=== PATIENT | male | born 1940 | race Caucasian/White ===

== ENCOUNTER → 2017-11-06 08:03 | Outpatient (CLI) | payer MEDICARE, OTHER, SELFPAY ==
[2017-11-06 10:12] LABS: Absolute Lymphocyte Count 1.52 X10^3/ul (0.83-4.51); Absolute Neutrophil Count 3.3 X10^3/uL (2.0-7.7); Basophil# 0.02 X10^3/uL; Basophil% 0.4 % (0-1); Eosinophil# 0.16 X10^3/uL; Eosinophils% 2.9 % (0-5); Hematocrit 38.9 % (40-54); Hemoglobin 13.4 g/dl (13.0-16.5); Lymphocyte # 1.52 X10^3/ul (4.0); Lymphocyte % 27.7 % (19-41); Mean Corp Hgb Conc 34.4 g/gl (32-36); Mean Corpuscular Hgb 29.3 pg (27.0-32.0); Mean Corpuscular Volume 84.9 fL (80-94); Monocyte# 0.49 X10^3/uL; Monocyte% 8.9 % (0-10); Neutrophil % 60.1 % (47-70); Platelet Count 232 K/mm3 (150-450); RBC Distribution Width CV 12.4 % (11.6-14.6); Red Blood Count 4.58 M/mm3 (4.6-6.2); White Blood Count 5.5 K/mm3 (4.4-11.0)
[2017-11-06 10:13] LABS: POSITIVE COUNT NO; POSITIVE DIFFERENTIAL NO; POSITIVE MORPHOLOGY NO
[2017-11-06 10:29] LABS: Anion Gap 6 (5-15); BUN 18 mg/dL (7-18); BUN/Creat Ratio 14.6 RATIO (10-20); Calcium,Total 8.8 mg/dL (8.5-10.1); Chloride 108 mmol/L (98-107); Cholesterol 228 mg/dL (200); Creatinine, Serum 1.23 mg/dL (0.70-1.30); EST Glomerular Filtration Rate 61 mL/min (>60); Est Glom Filt Rate - Afr Amer 74 mL/min (>60); Glucose 125 mg/dL (74-106); High Density Lipoprotein 55 mg/dL; PSA,Total - Annual Screen 2.82 ng/mL (0.00-4.00); Sodium Level 138 mmol/L (136-145); Triglycerides 149 mg/dL; Very Low Density Lipoprotein 30 mg/dL (5-40)
== END ==
PROVIDERS: Family Provider Family Medicine; PCP Family Medicine; Visit Provider Family Medicine
DX: E78.00 Pure hypercholesterolemia, unspecified (principal); M19.90 Unspecified osteoarthritis, unspecified site; Z12.5 Encounter for screening for malignant neoplasm of prostate
CPT/HCPCS: 36415; 80048; 80061; 84153; 85025; G0103

== ENCOUNTER → 2020-05-22 14:39 | Outpatient (CLI) | payer MEDICARE, OTHER, SELFPAY ==
[2019-06-07 13:21] VITALS: BMI 21.2
[2020-05-22 17:52] LABS: Absolute Lymphocyte Count 1.99 X10^3/uL (0.83-4.51); Basophil# 0.03 X10^3/uL; Basophil% 0.4 % (0-1); Eosinophil# 0.14 X10^3/uL; Eosinophils% 2.1 % (0-5); Hematocrit 43.1 % (40-54); Hemoglobin 14.6 g/dL (13.0-16.5); Lymphocyte # 1.99 X10^3/ul (4.0); Lymphocyte % 29.7 % (19-41); Mean Corp Hgb Conc 33.9 g/dL (32-36); Mean Corpuscular Hgb 29.3 pg (27.0-32.0); Mean Corpuscular Volume 86.4 fL (80-94); Mean Platelet Vol. 10.4 fl (6.2-12.0); Monocyte# 0.54 X10^3/uL; NRBC Flagged by Analyzer 0 % (0-5); Neutrophil % 59.7 % (47-70); Platelet Count 328 K/mm3 (150-450); RBC Distribution Width CV 12.4 % (11.6-14.6); RBC Distribution Width SD 38.6 fl (35.1-43.9); Red Blood Count 4.99 M/mm3 (4.6-6.2); White Blood Count 6.7 K/mm3 (4.4-11.0)
[2020-05-22 18:10] LABS: ALB/GLOB Ratio 1.1 RATIO (0.9-2.4); AST(SGOT) 23 U/L (15-37); Alanine Aminotransfer ALT/SGPT 41 U/L (16-61); Alkaline Phosphatase 128 U/L (45-117); Anion Gap 7 (5-15); BUN 15 mg/dL (7-18); BUN/Creat Ratio 10.9 RATIO (10-20); Calcium,Total 9.5 mg/dL (8.5-10.1); Chloride 106 mmol/L (98-107); Creatinine, Serum 1.38 mg/dL (0.70-1.30); EST Glomerular Filtration Rate 53 mL/min (>60); Est Glom Filt Rate - Afr Amer 64 mL/min (>60); Globulin 3.7 g/dL (2.2-4.2); Glucose 101 mg/dL (74-106); Potassium 3.9 mmol/L (3.5-5.1); Protein, Total 7.7 g/dL (6.4-8.2); Sodium Level 139 mmol/L (136-145)
== END ==
PROVIDERS: PCP Family Medicine; Visit Provider Family Medicine
DX: I71.2 Thoracic aortic aneurysm, without rupture (principal)
CPT/HCPCS: 36415; 80053; 85025

== ENCOUNTER → 2020-05-29 15:38 | Outpatient (CLI) | payer MEDICARE, OTHER, SELFPAY ==
[2019-06-07 13:21] VITALS: BMI 21.2
--- NOTE | 2020-05-29 15:41 | CT_ITS ---
STUDY: CT CHEST WITH CONTRAST REASON FOR EXAM: Male, 79 years old. THORACIC ASCENDING AORTIC ANEURYSM, SKIN CANCER REMOVED FROM LT EAR RADIATION DOSAGE (If Supplied By Facility): CTDIvol = ( 6.21 ) mGy, DLP = ( 269.28 ) mGycm TECHNIQUE: Transaxial imaging was performed following intravenous administration of IV 100mL Isovue-300. Multiplanar coronal and sagittal images were reformatted. Individualized dose optimization techniques were used for this CT. COMPARISON: None. FINDINGS: The lungs are normal. There is no demonstrated pleural abnormality. Normal heart and pericardium. Normal mediastinum. Normal hilar regions. Normal enhanced pulmonary arteries. Aneurysmal dilatation of the proximal ascending thoracic aorta with a transverse dimension of 50.6 mm. Focal calcific plaque at the level of the aortic arch. There are mild multi-level degenerative changes of the thoracic spine. There is no demonstrated abnormality of the visualized upper abdomen. CT/Chest WITH Contrast IMPRESSION: Aneurysmal dilatation of the proximal descending thoracic aorta with a transverse dimension of 50.6 mm. Electronically Signed: Israel Ngo, at 8:25 EST , Service support ,
== END ==
PROVIDERS: PCP Family Medicine; Referring Provider Family Medicine; Visit Provider Family Medicine
DX: I71.2 Thoracic aortic aneurysm, without rupture (principal)
CPT/HCPCS: 71260; Q9967

== ENCOUNTER → 2020-06-28 13:35 | Outpatient (CLI) | payer MEDICARE, OTHER, SELFPAY ==
[2019-06-07 13:21] VITALS: BMI 21.2
--- NOTE | 2020-06-28 13:38 | CT_ITS ---
STUDY: CT ORBITS WITHOUT CONTRAST REASON FOR EXAM: Male, 79 years old. POST OP FLAP, SQUAMOUS CELL- RADIATION PLANNING. RADIATION DOSAGE (If Supplied By Facility): CTDIvol = ( 12.19 ) mGy, DLP = ( 219.42 ) mGycm TECHNIQUE: The patient was scanned in a multi detector CT scanner. Transaxial imaging was performed without the administration of intravenous contrast material. Sagittal and coronal images were reconstructed. Individualized dose optimization techniques were used for this CT. COMPARISON: None. FINDINGS: Normal globes. Normal intraconal spaces. Normal optic nerve sheath complex. Normal bilateral extraocular muscles. Normal lacrimal glands. Normal bilateral medial and inferior orbital johnson. Normal bilateral maxillary bones. Normal bilateral frontozygomatic arches. Normal bilateral zygomatic temporal arches. Normal frontal sinus. Normal ethmoidal sinuses. Normal maxillary sinuses. Normal sphenoid sinuses. Normal soft tissue structures. CT/Orb Sella Post Fossa Ear w/o IMPRESSION: Normal CT examination of the bilateral orbits. Electronically Signed: Luigi Bal MD at 16:09 EST Tel , Service support ,
== END ==
PROVIDERS: PCP Family Medicine; Referring Provider Radiology Radiation Oncology; Visit Provider Radiology Radiation Oncology
DX: C44.229 Squamous cell carcinoma of skin of left ear and external auricular canal (principal)
CPT/HCPCS: 70480

== ENCOUNTER → 2020-07-18 13:51 | Outpatient (CLI) | payer MEDICARE, OTHER, SELFPAY ==
[2019-06-07 13:21] VITALS: BMI 21.2
[2020-07-18 15:45] LABS: Absolute Lymphocyte Count 2.18 X10^3/uL (0.83-4.51); Absolute Neutrophil Count 2.8 X10^3/uL (2.0-7.7); Basophil# 0.04 X10^3/uL; Basophil% 0.7 % (0-1); Eosinophil# 0.22 X10^3/uL; Eosinophils% 3.8 % (0-5); Hematocrit 39.2 % (40-54); Hemoglobin 13.7 g/dL (13.0-16.5); Lymphocyte # 2.18 X10^3/ul (4.0); Lymphocyte % 37.4 % (19-41); Mean Corp Hgb Conc 34.9 g/dL (32-36); Mean Corpuscular Hgb 29.8 pg (27.0-32.0); Mean Corpuscular Volume 85.4 fL (80-94); Mean Platelet Vol. 10.1 fl (6.2-12.0); Monocyte# 0.57 X10^3/uL; Monocyte% 9.8 % (0-10); NRBC Flagged by Analyzer 0 % (0-5); Neutrophil # 2.81 X10^3/uL (2.7-7.7); Neutrophil % 48.1 % (47-70); Platelet Count 281 K/mm3 (150-450); RBC Distribution Width CV 11.9 % (11.6-14.6); RBC Distribution Width SD 37.1 fl (35.1-43.9); Red Blood Count 4.59 M/mm3 (4.6-6.2); White Blood Count 5.8 K/mm3 (4.4-11.0)
== END ==
PROVIDERS: PCP Family Medicine; Referring Provider Radiology Radiation Oncology; Visit Provider Radiology Radiation Oncology
DX: C80.1 Malignant (primary) neoplasm, unspecified (principal)
CPT/HCPCS: 36415; 85025

== ENCOUNTER → 2020-08-31 | Outpatient (CLI) | payer MEDICARE, OTHER, SELFPAY ==
--- NOTE | 2020-08-31 15:15 | LES_PTH ---
PATIENT: SYED ZEE LOC: [facility] U#:[id number] AGE/SX: 79/M ROOM: RE08/31/[address]: Dr. Misha Becker MD : 1940 BED: DIS: 08/31/2020 SPEC #: [id number] RECD: 08/31/20 16:09 STATUS: TAYLOR RE #: [id number] MARIN: 08/31/20 15:[address]: Misha Becker DEPT: SURGICAL PATHOLOGY RECD BY: Brooklyn Broussard ENTERED: 09/01/20 08:42 SP TYPE: Lesion OTHR DR: Kevin Mcadams MD Tissues: Skin of head, NOS Procedures: Special Stain Group I Surgery Specimen Level IV GMS Stain (control) HEADER OPERATION: Punch biopsy left anabaptist lesion PRE-OP DIAGNOSIS: Skin lesion of face TISSUE SUBMITTED: Left anabaptist tissue MICROSCOPIC DIAGNOSIS Left anabaptist lesion, punch biopsy: Moderate dermal chronic inflammation. Parakeratosis and solar elastosis. Negative for malignancy. See comment. ANGELA:yvonne 09/04/2020 COMMENT Clinical correlation and appropriate follow up are necessary. Special stain for fungi is negative for organisms; matched control is appropriate. Case has been reviewed in consultation with Dr. Wells who concurs with the above diagnosis. IDC:AM MICROSCOPIC DESCRIPTION Slides are reviewed. GROSS DESCRIPTION Received in fixative is one container labeled with the patient's name and designated left anabaptist punch biopsy. The specimen consists of a punch biopsy of campbell-white skin measuring 0.3 cm in diameter and 0.4 cm in length. The specimen is totally submitted in one cassette. / ANGELA:yvonne 09/01/20 TC:4 CPT: 20441, 48728
== END | disposition home or self-care (01) ==
LOC: LABSPEC 16:30
PROVIDERS: PCP Family Medicine; Referring Provider Surgery; Visit Provider Surgery
DX: L98.9 Disorder of the skin and subcutaneous tissue, unspecified (principal)
CPT/HCPCS: 88305; 88312

== ENCOUNTER 2022-05-10 07:10 | Day surgery (SDC) | payer MEDICARE, OTHER, SELFPAY ==
--- NOTE | 2022-05-10 | COLBX_PTH ---
PATIENT: SYED ZEE LOC: [facility] U#:[id number] AGE/SX: 81/M ROOM: RE05/10/[address]: Dr. Misha Becker MD : 1940 BED: DIS: 05/10/2022 SPEC #: [id number] RECD: 05/10/22 11:52 STATUS: TAYLOR ALLEN #: [id number] MARIN: 05/10/22 00:[address]: Misha Becker DEPT: SURGICAL PATHOLOGY RECD BY: Kalia Ferraro ENTERED: 05/10/22 11:52 SP TYPE: COLON BX OTHR DR: Kevin Mcadams MD Tissues: Sigmoid colon biopsy Procedures: Surgery Specimen Level IV HEADER OPERATION: Colonoscopy with polypectomy (MAC) PRE-OP DIAGNOSIS: History of colonic polyps TISSUE SUBMITTED: Mid sigmoid polyp biopsy MICROSCOPIC DIAGNOSIS Mid sigmoid polyp, biopsy: Hyperplastic polyp. /SJ 05/13/22 MICROSCOPIC DESCRIPTION Slides are reviewed. GROSS DESCRIPTION Received in fixative is one container labeled with the patient's name and designated mid sigmoid polyp biopsy. The specimen consists of one irregular fragment of light campbell soft tissue that measures 0.3 x 0.3 x 0.1 cm. The specimen is totally submitted in one cassette. / SJ:yvonne 05/10/2022 TC:1 CPT: 37630
[2022-05-10 07:30] VITALS: BP 138/85; PULSE 71; RESP 16; TEMP 36.7; O2SAT 97; BMI 20.5
[2022-05-10] MEDS: Lactated Ringers 1,000 ML 15 ML IV (07:38)
--- NOTE | 2022-05-10 08:54 | HP.PCM_ITS ---
[facility] - General General Date of Service: 05/10/22 Chief Complaint: Personal history of colon polyps [facility] Narrative SYED ZEE, is a 81 M who presents who presents for a colonoscopy. He has a personal history of colon polyps. Previous colonoscopy was April 29, 2017 and he had a polyp of the cecum at that time. He presents with no complaints currently. No abdominal pain no bright red blood per rectum. He does have a ascending thoracic aortic aneurysm but by his report that has been monitored and is stable. [facility] Medical History (Updated 05/10/22 @ 08:[address] Misha Becker MD) Ascending aortic aneurysm Cardiology follow-up encounter Former smoker History of echocardiogram History of skin cancer Osteoarthritis Skin lesion of face Squamous cell carcinoma Wears glasses Home Medications aspirin 325 mg tablet 325 mg PO DAILY@0800 04/29/17 [History Last Taken Unknown] multivitamin 1 ea PO DAILY 04/29/17 [History Last Taken Unknown] cholecalciferol (vitamin D3) 125 mcg (5,000 unit) capsule 5,000 unit PO DAILY 05/03/19 [History Last Taken Unknown] coenzyme Q10 300 mg capsule 300 mg PO DAILY 05/03/19 [History Last Taken Unknown] omega 2-yrn-wrh-fish oil 900 mg-1,400 mg capsule,delayed release (Fish Oil) 1 cap PO DAILY 12/06/21 [History Last Taken Unknown] vitamin K2 180 mcg capsule 180 mcg PO DAILY 05/08/22 [History Last Taken Unknown] zinc 1 tab PO DAILY 05/08/22 [History Last Taken Unknown] Allergy/AdvReac Type Severity Reaction Status Date / Time No Known Allergies Allergy Verified 05/10/22 07:29 Family History Father No problems noted. Surgical History History of colonoscopy History of surgery on wrist History of surgical removal of skin lesion History of tonsillectomy and adenoidectomy Status post Mohs surgery for squamous cell carcinoma in situ of skin Social History Smoking Status: Former smoker ROS Constitutional Constitutional: Reports systems reviewed and no addt'l complaints, except as documented Cardiovascular Cardiovascular: Denies chest pain Respiratory/Chest Respiratory/Chest: Denies shortness of breath at rest Gastrointestinal Gastrointestinal: Denies abdominal pain, change in bowel habits, hematochezia or melena Vital Signs Vital Signs Vital Signs: 05/10/22 07:30 05/10/22 07:30 Temperature 98.0 F Temperature Source Temporal Pulse Rate 71 Respiratory Rate 16 Respiratory Pattern Normal Blood Pressure 138/85 H Blood Pressure Mean 102 Blood Pressure Source Monitor Blood Pressure Position Semi-Fowlers Blood Pressure Location Left Arm Pulse Ox 97 Oxygen Delivery Method Room Air Weight Weight: 134 lb 12.8 oz Body Mass Index (BMI) 20.5 Physical Exam Const alert, oriented x3 and no apparent distress General Appearance: cooperative and comfortable Eyes General Eye: normal appearance of both eyes Neck General: normal visual inspection Chest inspection of chest normal Resp Effort and Inspection: able to speak in complete sentences and symmetric chest movement Auscultation: clear to auscultation bilaterally Cardio regular rate and regular rhythm GI soft to palpation, non-tender and non-distended Extremity no calf tenderness Neuro oriented x3 Psych thought process normal Assessment & Plan Assessment/Plan (1) Personal history of colonic polyps: PLAN: I recommended the patient a surveillance colonoscopy with possible biopsy or polypectomy as indicated. He is aware of the technique, benefit, risk, alternatives. He has had an opportunity to ask and have questions answered. He presents via open access today. We will proceed as noted. Misha Becker M.D., F.A.C.S.
--- NOTE | 2022-05-10 09:21 | OP.COLON_ITS ---
Patient Name: Jose A Painting Procedure Date: 05/10/2022 8:48 AM Date of : 1940 Age: 81 Procedure: Colonoscopy Indications: High risk colon cancer surveillance: Personal history of colonic polyps Providers: Misha Becker MD Medicines: See the Anesthesia note for documentation of the administered medications Patient Profile: Last Colonoscopy: March 2017. Complications: No immediate complications. Procedure: Pre-Anesthesia Assessment: - Prior to the procedure, a History and Physical was performed, and patient medications and allergies were reviewed. The patient's tolerance of previous anesthesia was also reviewed. The risks and benefits of the procedure and the sedation options and risks were discussed with the patient. All questions were answered, and informed consent was obtained. Prior Anticoagulants: The patient has taken no previous anticoagulant or antiplatelet agents. ASA Grade Assessment: II - A patient with mild systemic disease. After reviewing the risks and benefits, the patient was deemed in satisfactory condition to undergo the procedure. After I obtained informed consent, the scope was passed under direct vision. Throughout the procedure, the patient's blood pressure, pulse, and oxygen saturations were monitored continuously. The colonoscope was introduced through the anus and advanced to the cecum, identified by appendiceal orifice and ileocecal valve. The colonoscopy was performed without difficulty. The patient tolerated the procedure well. The quality of the bowel preparation was good. The ileocecal valve and the appendiceal orifice were photographed. Scope In: 9:00:31 AM Scope Withdrawal Time 0 hours 10 minutes 7 seconds Scope Out: 9:16:18 AM Total Procedure Duration Time 0 hours 15 minutes 47 seconds Findings: Hemorrhoids were found on perianal exam. Multiple diverticula were found in the entire colon. A 3 mm polyp was found in the mid sigmoid colon. The polyp was sessile. The polyp was removed with a cold biopsy forceps. Resection and retrieval were complete. Impression: - Hemorrhoids found on perianal exam. - Diverticulosis in the entire examined colon. - One 3 mm polyp in the mid sigmoid colon, removed with a cold biopsy forceps. Resected and retrieved. This flat lesion very benign appearing. Will await pathology but likely follow-up colonoscopy will not be required for 10 years. Recommendation: - Telephone my office for pathology results in 1 week. - Repeat colonoscopy after studies are complete for surveillance based on pathology results. - Continue present medications. Procedure Code(s): --- Professional --- 86639, Colonoscopy, flexible; with biopsy, single or multiple Diagnosis Code(s): --- Professional --- Z86.010, Personal history of colonic polyps K64.9, Unspecified hemorrhoids D12.5, Benign neoplasm of sigmoid colon K57.30, Diverticulosis of large intestine without perforation or abscess without bleeding CPT copyright 2017 [employer]. All rights reserved. The codes documented in this report are preliminary and upon third helper review may be revised to meet current compliance requirements. Misha Becker MD 05/10/2022 9:21:09 AM This report has been signed electronically. Number of Addenda: 0 Note Initiated On: 05/10/2022 8:48 AM
--- NOTE | 2022-05-10 09:21 | OP.CCLET_ITS ---
05/10/2022 Kevin Mcadams Md Re : Colonoscopy procedure for Jose A Coatsab Mcadams This procedure was performed on Tuesday, May 10, 2022. My impressions and recommendations are as follows: Impressions : - Hemorrhoids found on perianal exam. - Diverticulosis in the entire examined colon. - One 3 mm polyp in the mid sigmoid colon, removed with a cold biopsy forceps. Resected and retrieved. This flat lesion very benign appearing. Will await pathology but likely follow-up colonoscopy will not be required for 10 years. Recommendations : - Telephone my office for pathology results in 1 week. - Repeat colonoscopy after studies are complete for surveillance based on pathology results. - Continue present medications. My findings are described in the full procedure note, which is enclosed. If I can be of further assistance, please feel free to contact me at Doctor phone number(s): Work: . Sincerely, Misha Becker MD 05/10/2022 9:21:09 AM This report has been signed electronically.
[2022-05-10 09:22] VITALS: BP 138/85; BP 98/68; PULSE 70; RESP 16; TEMP 36.6; O2SAT 96
[2022-05-10 09:25] VITALS: BP 105/70; BP 138/85; PULSE 60; RESP 16; O2SAT 94
[2022-05-10 09:30] VITALS: BP 109/65; BP 138/85; PULSE 58; RESP 16; O2SAT 94
[2022-05-10 09:35] VITALS: BP 119/82; BP 138/85; PULSE 72; RESP 16; TEMP 36.6; O2SAT 98
[2022-05-10 09:47] VITALS: BP 138/85
== END 2022-05-10 10:18 | disposition home or self-care (01) ==
LOC: EN 07:10 → AC 07:12
PROVIDERS: PCP Family Medicine; Referring Provider Family Medicine; Visit Provider Surgery
PROC: 0DJD8ZZ Inspection of Lower Intestinal Tract, Via Natural or Artificial Opening Endoscopic (ICD-10-PCS; CPT 45378; principal; 2022-05-10 08:25)
DX: K63.5 Polyp of colon (principal); K57.30 Diverticulosis of large intestine without perforation or abscess without bleeding; Z86.010 Personal history of colon polyps; K64.9 Unspecified hemorrhoids; I71.21 Aneurysm of the ascending aorta, without rupture; M19.90 Unspecified osteoarthritis, unspecified site; Z79.899 Other long term (current) drug therapy; Z79.82 Long term (current) use of aspirin; Z87.891 Personal history of nicotine dependence; Z85.828 Personal history of other malignant neoplasm of skin
CPT/HCPCS: 45380; 88305; J7120; J2405

== ENCOUNTER → 2023-04-22 | Outpatient (CLI) | payer MEDICARE, OTHER, SELFPAY ==
[2023-04-22 15:09] LABS: Absolute Lymphocyte Count 2.19 X10^3/uL (0.83-4.51); Absolute Neutrophil Count 3.6 X10^3/uL (2.0-7.7); Basophil# 0.05 X10^3/uL; Basophil% 0.7 % (0-1); Eosinophil# 0.24 X10^3/uL; Eosinophils% 3.6 % (0-5); Hematocrit 40.6 % (40-54); Hemoglobin 13.9 g/dL (13.0-16.5); Lymphocyte # 2.19 X10^3/ul (0.83-4.51); Lymphocyte % 32.4 % (19-41); Mean Corp Hgb Conc 34.2 g/dL (32-36); Mean Corpuscular Hgb 29.8 pg (27.0-32.0); Mean Corpuscular Volume 87.1 fL (80-94); Monocyte# 0.61 X10^3/uL; NRBC Flagged by Analyzer 0 % (0-5); Neutrophil # 3.64 X10^3/uL (2.7-7.7); Platelet Count 250 K/mm3 (150-450); RBC Distribution Width CV 12.3 % (11.6-14.6); Red Blood Count 4.66 M/mm3 (4.6-6.2); White Blood Count 6.8 K/mm3 (4.4-11.0)
[2023-04-22 16:14] LABS: ALB/GLOB Ratio 0.9 RATIO (0.9-2.4); AST(SGOT) 21 U/L (15-37); Alanine Aminotransfer ALT/SGPT 33 U/L (16-61); Albumin, Serum 3.4 g/dL (3.2-5.0); Alkaline Phosphatase 99 U/L (45-117); Anion Gap 3 (5-15); BUN 22 mg/dL (7-18); BUN/Creat Ratio 19.6 RATIO (10-20); Chloride 109 mmol/L (98-107); Cholesterol 256 mg/dL (200); Creatinine, Serum 1.12 mg/dL (0.70-1.30); EST Glomerular Filtration Rate 67 mL/min (>60); Est Glom Filt Rate - Afr Amer 81 mL/min (>60); Globulin 3.6 g/dL (2.2-4.2); Glucose 118 mg/dL (74-106); High Density Lipoprotein 54 mg/dL; PSA,Total - Annual Screen 3.14 ng/mL (0.00-4.00); Potassium 4.1 mmol/L (3.5-5.1); Sodium Level 140 mmol/L (136-145); Triglycerides 338 mg/dL; Very Low Density Lipoprotein 68 mg/dL (5-40)
== END | disposition home or self-care (01) ==
PROVIDERS: PCP Family Medicine; Referring Provider Family Medicine; Visit Provider Family Medicine
DX: E78.00 Pure hypercholesterolemia, unspecified (principal); Z12.5 Encounter for screening for malignant neoplasm of prostate; M19.90 Unspecified osteoarthritis, unspecified site
CPT/HCPCS: 36415; 80053; 80061; 84153; 85025; G0103

== ENCOUNTER → 2024-03-26 | Outpatient (CLI) | payer MEDICARE, OTHER, SELFPAY ==
[2024-03-26 12:46] LABS: Absolute Lymphocyte Count 1.22 X10^3/uL (0.83-4.51); Absolute Neutrophil Count 9.6 X10^3/uL (2.0-7.7); Basophil# 0.13 X10^3/uL; Eosinophil# 0.58 X10^3/uL; Eosinophils% 4.6 % (0-5); Hematocrit 33.9 % (40-54); Hemoglobin 10.7 g/dL (13.0-16.5); Lymphocyte # 1.22 X10^3/ul (0.83-4.51); Lymphocyte % 9.7 % (19-41); Mean Corp Hgb Conc 31.6 g/dL (32-36); Mean Corpuscular Volume 91.9 fL (80-94); Mean Platelet Vol. 10.8 fl (6.2-12.0); Monocyte% 7.2 % (0-10); NRBC Flagged by Analyzer 0 % (0-5); Neutrophil # 9.63 X10^3/uL (2.7-7.7); Neutrophil % 76.9 % (47-70); Platelet Count 433 K/mm3 (150-450); RBC Distribution Width CV 12.7 % (11.6-14.6); RBC Distribution Width SD 41.6 fl (35.1-43.9); Red Blood Count 3.69 M/mm3 (4.6-6.2); White Blood Count 12.5 K/mm3 (4.4-11.0)
[2024-03-26 13:13] LABS: ALB/GLOB Ratio 0.6 RATIO (0.9-2.4); AST(SGOT) 49 U/L (15-37); Alanine Aminotransfer ALT/SGPT 63 U/L (16-61); Albumin, Serum 2.8 g/dL (3.2-5.0); Alkaline Phosphatase 391 U/L (45-117); Anion Gap 7 (5-15); BUN 13 mg/dL (7-18); BUN/Creat Ratio 10.1 RATIO (10-20); Calcium,Total 9.3 mg/dL (8.5-10.1); Chloride 107 mmol/L (98-107); Creatinine, Serum 1.29 mg/dL (0.70-1.30); EST Glomerular Filtration Rate 57 mL/min (>60); Est Glom Filt Rate - Afr Amer 69 mL/min (>60); Globulin 4.9 g/dL (2.2-4.2); Glucose 156 mg/dL (74-106); Magnesium 2.4 mg/dL (1.6-2.6); Potassium 3.8 mmol/L (3.5-5.1); Protein, Total 7.7 g/dL (6.4-8.2); Sodium Level 139 mmol/L (136-145)
== END | disposition home or self-care (01) ==
LOC: MFPLAB 10:12
PROVIDERS: PCP Family Medicine; Visit Provider Family Medicine
DX: I25.10 Atherosclerotic heart disease of native coronary artery without angina pectoris (principal)
CPT/HCPCS: 36415; 80053; 83735; 85025

== ENCOUNTER → 2024-04-12 | Outpatient (CLI) | payer MEDICARE, SELFPAY ==
[2024-04-12 12:15] LABS: Red Blood Cells-Urine 0 SEEN /hpf (0-5)
[2024-04-12 15:28] LABS: Color, Urine Yellow (Yellow); Glucose, Dipstick Normal (Normal); Ketone-Dipstick Negative (Negative); Leukocyte Esterase-Dipstick Negative /ul (Negative); Nitrite-Dipstick Negative (Negative); Occult Blood-Urine Negative /ul (Negative); Protein-Dipstick Negative (Negative); Urine Bilirubin Dipstick Negative (Negative); Urine Clarity Clear (Clear); Urine Urobilinogen Normal (Normal)
[2024-04-12 15:43] LABS: Bacteria 1+ /hpf (None Seen); Calcium Oxalate Crystals Ur 1+ /hpf (<or=2+); Mucous, Urine 2+ /hpf (<or=2+); Squamous Epithelial Cells - UA 0-5 SEEN /hpf (0-5); White Blood Cells 0-5 SEEN /hpf (0-5)
== END | disposition home or self-care (01) ==
LOC: MFPLAB 12:14
PROVIDERS: PCP Family Medicine; Visit Provider Family Medicine
DX: N39.43 Post-void dribbling (principal)
CPT/HCPCS: 81001; 87086

== ENCOUNTER → 2024-04-26 | Outpatient (CLI) | payer MEDICARE, OTHER, SELFPAY ==
--- NOTE | 2024-04-26 08:04 | PCM.CR.HP2 ---
CR - History & Physical General Arrival date:: 04/26/24 Arrival time:: 08:05 Date of Referral:: 04/22/24 Date of CR Evaluation:: 04/26/24 Referring Physician: Dr. 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) Medications Ambulatory Orders ?Medication ?Instructions ?Recorded aspirin 325 mg tablet 325 mg PO DAILY@0800 04/29/17 multivitamin 1 ea PO DAILY 04/29/17 cholecalciferol (vitamin D3) 125 5,000 unit PO DAILY 05/03/19 mcg (5,000 unit) capsule coenzyme Q10 300 mg capsule 300 mg PO DAILY 05/03/19 omega 6-fpd-fny-fish oil 900 1 cap PO DAILY 12/06/21 mg-1,400 mg capsule,delayed release (Fish Oil) vitamin K2 180 mcg capsule 180 mcg PO DAILY 05/08/22 zinc 1 tab PO DAILY 05/08/22 Allergies Allergies No Known Allergies Allergy (Verified 05/10/22 07:29) Sleep Disorder Evaluation Hx of Sleep Apnea: No Do you snore loudly (louder than talking or can be heard through closed doors)?: No Do you often feel tired/ fatigued/ sleepy during daytime?: No Has anyone observed you stop breathing during sleep?: No History of Hypertension (for STOP score): No STOP Results: Negative Advanced Directives Advanced Directives Power of Central Supply Technician Supervisor: No Living Will: No Advance Directives Information Provided: No Advance Directives on File: No DNR Order?:: No Past Medical History Covid-19 Screening Physicial Symptoms Other Clinical Concerns Exposure Risk Pertinent Comorbidities 65 years or older:: Yes Has a serious heart condition:: Yes Past Medical Illness Past Medical History (Updated 05/10/22 @ 08:[address] Misha Becker MD) Ascending aortic aneurysm I71.21 Wears glasses Z97.3 Former smoker Z87.891 History of echocardiogram Z92.89 Cardiology follow-up encounter Z09 F/U YEARLY [facility], DR. PEREZ, LAST F/U 12/2021 Squamous cell carcinoma left ear Skin lesion of face L98.9 History of skin cancer Z85.828 Osteoarthritis M19.90 Past Surgical History Past Surgical History History of tonsillectomy and adenoidectomy Z90.89 Status post Mohs surgery for squamous cell carcinoma in situ of skin Z98.890 left ear History of surgical removal of skin lesion Z98.890, Z87.2 History of surgery on wrist Z98.890 History of colonoscopy Z98.890 Family History Summary Family History Father No problems noted. Social History Smoking History Smoking Status: Former smoker Years Smokin Packs Smoked per Day: 0.5 (stopped in 1979) Alcohol Use Alcohol Usage: Yes (socially) Occupation Occupation (List type of work in comments):: Retired Hobbies, Recreation, Social Activities Hobbies: Other (music) Recreational Activities: I am able to engage in all my recreational activities Social Environment Status Marital Status: Current Living Arrangements Living Environment:: Spouse Children How many children do you have?: 2 Do any of your children live nearby?: No Safety Do you feel safe in your surroundings?: Yes Assistance Do you need any assistance at home?: no Review of Systems Review of Systems Hints Review of Present Symptoms: Reports Shortness of Breath with Exertion and Appetite - Special Diet; Denies Shortness of Breath at Rest, PVD, Operative Discomfort, Angina, Wound Healing, Dizziness/Lightheadedness, Fatigue, Heart Arrhythmia/Irregularities, Appetite - Normal, Sleep - Normal or Sexual Changes Pain Is Patient Pain Free?: No Risk Factor Assessment Chief Complaint Chief Complaint: CABG Vital Signs Pulse Ox: 96 Blood Pressure: 106/62 Pulse Pulse Rate: 87 Pulse Rhythm: Regular Hypertension Blood Pressure Sitting - Right Arm: 106/62 Stress Stress: Recent (health) Diabetes Diabetic History: Medication Dependent (Pt is taking metformin since his surgery. Is planning to talk to his physician to see if this is still necessary.) Nutrition Referral for Diabetes: No Obesity Height: 5 ft 8 in Weight:: 130 lb Weight in Pounds: 130.0 lbs Body Mass Index (BMI): 19.8 Nutritional Referral for Obesity: No Physical Inactivity Physical Inactivity: Reg Exercise 30 min/day (walking) Risk Stratification Risk Guidelines: Lowest Risk: Risk Factor for Smoking and Risk Factor for Obesity, Moderate Risk: Risk Factor for Dyslipidemia, Risk Factor for Diabetes, Risk Factor for Hypertension and Risk Factor for Sedentary Lifestyle and Highest Risk: Risk Factor for Depression For Smoking Smoking Risk Guidelines For Dyslipidemia Dyslipidemia Risk Guidelines For Diabetes Mellitus Diabetes Risk Guidelines For Obesity/Overweight Obesity/Overweight Risk Guidelines For Hypertension Hypertension Risk Guidelines For Sedentary Lifestyle Sedentary Lifestyle Risk Guidelines For Depression Depression Risk Guidelines Family History Family History Father No problems noted. Motivation Motivation to Participate On a scale of 1 to 10, how prepared are you to commit to attending program?: 10 What do you see as barriers to successfully being able to complete the program?: nothing What do you see as the benefits of succesfully completing the program? In other words, what do you hope to get out of participating in the program?: stronger, more energy, improve appetite, feel better Are there issues you are dealing with that will interfere with completing the program?: no Do you have a spouse or signficant other, family or friends who will help support you to complete the program?: yes
--- NOTE | 2024-04-26 08:09 | CR.ITP_ITS ---
Diagnosis General Information Admitting Diagnosis: CABG Personal Learning Style:: Audio/Visual Barriers to Learning: No Barriers Stage of change r/t lifestyle modifications:: Contemplation Gave educational material for:: Treating Heart Disease, How The Heart Works, What it means to have Heart Disease, How Coronary Artery Disease is Diagnosed, Heart Procedures, What Heart Medications Do, Risk Factors & Modifications, Living an Active Life, Nutrition, Emotions & Heart Disease, Stress Management & Relaxation and Sleep Disorders & Heart Disease Education/Goals Cardiac Rehabilitation Goals Personal Goals: Initial Assessment: Improve energy level, Improve muscle strength and endurance, Improve diet and eating habits (eat healthier) and Control risk factors (learn risk factor modification) Scale for measuring improvement of personal goals Diagnosis & Disease Process Outcomes/Goals: Pt IDs own risk factors & lifestyle modifications by Session 10, Verbalizes symptoms of angina & response by session 3., Pt independently manages and Other Additional Outcomes/Goals: Plan/Interventions: Assist Pt to ID & engage in lifestyle modification to reduce CVD risk, Instruct on individual risk factors, Review symptoms of angina & emergency actions, Review secondary diagnosis & identify educational needs. and Other see comment 30 day Reassessments:: Not Met 30 day Reassessments:: Not Met 30 day Reassessments:: Not Met 30 day Reassessments:: Not Met Final Reassessments:: Not Met Safety Referral to Physical Therapy: No Referral to [facility] Case Management: No Fall Risk Assessed:: Yes Assistive Devices:: None Exercise - Initial Assessment Visit Date of Eval: 04/26/24 (initial eval) Mets: Pre-: >3 METS for 30 minutes by discharge, >5 METS for 30 minutes by discharge, >7 METS for 30 minutes by discharge and Unable to meet goal due to: (see comment below) Physician Prescribed Exercise Modalities: Treadmill, Schwinn Airdyne AD-7, SciFit Stepper, [employer]Fit Pro-II Ergometer and [employer]Fit Lateral Lisman Frequency: 3x/week for 12 weeks [36 sessions] Intensity: 60-80% of age predicted maximum heart rate reserve Duration: 30 - 45 minutes Current METSs:: 3 Target Heart Rate:: 83-104 Resting Blood Pressure: 106/62 EKG Type: atrial-sensed ventricular-paced rhythm Outcomes & Goals Goals:: Verbalizes understanding of THR, RPE & goal METS by session 6, Documents in home exercise log/reports 30 min aerobic 5 day/wk by DC, Demonstrates accurate pulse taking by DC and Other additional outcome/goals: see below Intervention & Plan Exercise Program Goals: Instruct on personal THR & RPE, Instruct on MET level & personal MET goal, Show patient to take own pulse /validate performance until accurate, Instruct on home exercise and Other additional plan/int Physical Activity Home Exercise Physical Activity - Home Exercise: Safe Exercise, Warm-up, Self-monitoring, Cool-Down, Home Exercise > 30 min Daily and Sitting Time <3 hours/daily Outcomes & Goals Outcomes/Goals: Demonstrates correct Warm-up/exercise Cool-Down (S3) if = 2.5 METs, Verbalizes symptoms of exercise intolerance by Session 3 (S3), Demonstrate safe equipment use (S3) & follows exercise prescrition (6) and Other: See below Intervention & Plan Plan/Intervention: Instruct warm-up & cool-down if exercising at > 2 METs, Instruct on symptoms of exercise intolerance & actions to take, Instruct & monitor on saf, Assess intial functional capacity & safety risk and Other See below Nutrition - Initial Assessment Visit Date of Eval: 04/26/24 (initial eval) Cholesterol/Lipids (Other Core Measures) Determine presence & major risk factors that modify LDL goal: Hypertension or hypertensive medication, Low HDL cholesterol <40 mg/dL*, Family history of premature CHD in Male < 55 years: female <65 yearsFa and Age men > 45 years; women >/= 55 years Outcomes/Goals: Pt IDs own risk factors & lifestyle modifications by Session 10, Verbalizes symptoms of angina & response by session 3., Pt independently manages and Other Additional Outcomes/Goals: Intervention/Plan: Advocate for lipid panel cholesterol medication if applicable, Instruct on personal lipid levels & lipid goals/NCEP guidelines, Instruct on cholesterol and Other additional plan/int Diabetes (Other Core Measures) Diabetes Type: Not Applicable (Pt has been taking metformin since his surgery. Is going to talk to his physician to see if he can discontinue.) Weight Mgt (Other Care) Height: 5 ft 8 in Weight:: 130 lb BMI: 19.8 Diagnosis Overweight/Obesity BMI> 30% ICD-10 E66: No Diagnosis High BMI/Morbid Obesity BMI> 35% ICD-10 Z68: No Outcomes/Goals: Pt sets, maintains & shows weight loss goal & trend during rehab and Other additional outcomes/goals Intervention/Plan: Instruct on ideal BMI & set weight loss goal w/patient, Assist pt to ID & incorporate diet changes for weight loss by S9, Refer to Structured Weight Loss program as appropriate, Encourage goal of using 250- 300dcal per session for weight loss and Other additional plan/interventions Healthy Eating Habits Will attend diet classes:: Yes Outcomes/Goals:: Consume diet rich in vegs,fruits,whole grain/high fiber,fish,lean meat, Limit sat/trans fats,cholesterol & added salts & sugars and Other additional outcome/goals: Intervention/Plan:: Assess current eating habits and Other Additional plan/interventions Education Gave educational materials for:: Signs & symptoms of hypoglycemia, Signs & symptoms of hyperglycemia, Relate diabetes to coronary artery disease and Healthy eating Core - Initial Assessment Visit Date of Eval: 04/26/24 (initial eval ) Medication Compliance Preventative Medication(s):: Aspirin and Statin/lipid H/O mental health issues: depression, anxiety, or addiction?: No Doesn?t believe in the benefits of treatment?: No Believes medications are unnecessary or harmful?: No Has a concern about medication side effects?: No Expresses concern over the cost of medications?: No Outcomes/Goals: Verbalizes medications,desired effect & common side effects @ DC, Pt self-reports following medication regimen, Keeps card in wallet w/medications listed by DC and Other additional outcome/goals: Interventions/plans: Instruct on medication effects & side effects, Review medication list w/patient every two weeks, Instruct importance of taking meds as ordered & assist problem solving and Other additional Tobacco Use Tobacco Use: Non-smoker Do you use smokeless tobacco?: No Hypertension Resting Blood Pressure:: 106/62 [place] [employer] Hypertension Guidelines Outcomes/Goals: Able to verbalize/achieve optimal blood pressure <130/80, Incorporates diet changes & exercise for blood pressure control by DC and Other additional outcomes/goals Interventions/plan: Instruct on optimal blood pressure, hypertension & medications, Instruct on effects of sodium, alcohol, stress, exercise &hypertension and Other additional plan/interventions Tobacco Cessation Referral Smoking Cessation Referral:: No Individual Education/Counseling:: No Education Schedule Given:: Yes Psychosocial - Initial Assess VIsit Date of Eval: 04/26/24 (initial eval ) History of previous Mental disease:: Yes History of Emotional Disorders: Depression (pt is experiencing some mild depression since his surgery. Pt feels that starting a structured exercise program will be helpful.) Self-reported stressors: Recent Illness Target Goals Target Goals Psychosocial Test Tool Used:: Reta Lovell QOL Cardiac and PHQ-9 Questionnaire phq-9 Severity Referral to Behavioral Health PS - Interventions: Yes: Attend Stress Management Classes Outcomes/Goals: See list Psychosocial Outcomes/Goals:: ID's personal stressors & 2 strategies to manage stress by discharge and Other Additional outcome/goals: Intervention/Plan: See List Interventions/Plan:: Assess stressors,coping strategies & signs of derpression on admission, Instruct/assist pt to develop coping & personal stress Mgt strategies, Refer to Behavioral Health if appropriate, Refer to Physician if appropriate, Instruct patient to recognize signs & symptoms of depression, Instruct patient to recog and Other additional plan/intervention Patient Health Questionnaire PHQ-9 Screening Initial Assessment: 1. Little interest or pleasure in doing things: Several days 2. Feeling down, depressed, or hopeless: Several days 3. Trouble falling or staying asleep, or sleeping too much: Several days 4. Feeling tired or having little energy: Several days 5. Poor appetite or overeating: Several days 6. Feeling bad about yourself -- or that you are a failure or have let yourself or your family down: Not at all 7. Trouble concentrating on things, such as reading the newspaper or watching television: Not at all 8. Moving or speaking so slowly that other people could have noticed. Or the opposite - being so fidgety or restless that you have been moving around a lot more than usual: Not at all 9. Thoughts that you would be better off , or of hurting yourself in some way: Not at all How difficult have these problems made it for you to do your work, take care of things at home, or get along with other people?: Somewhat difficult Total Score: 5 ANISHA-Q SV Test Statements CAD is a disease of the arteries in the heart: False Examples of risk factors for heart disease: True Angina is chest pain or discomfort: True The benefits of resistance training include: True Eating more meat and dairy products: False Anti-platelet medications such as aspirin are important: True The only effective way to manage stress: True An exercise warm-up slowly increases heart rate: True Prepared, processed foods usually have high sodium: True Depression is common after a heart attack: True The statin medications lower cholesterol: True To control blood pressure, lower the amount of sodium: True If someone gets chest discomfort during walking: False Transfats are partially hydrogenated vegetable oils: True Sleep apnea that is not treated increases the risk: I Don't Know To control cholesterol, one should become a vegetarian: False Someone knows if he/she is exercising at the right level: True Diabetes cannot be prevented with exercise & health eating: False Stress is a large risk for heart attack: True A diet that can help lower blood pressure is rich in: True Total Score Total Correct Responses: 18 Self-Efficacy 6-Item Scale Initial Assessment: We would like to know how confident you are in doing certain activities. Please select your confidence level for: Fatigue Select Number: 10 Physical Discomfort or Pain Select Number: 10 Emotional Distress Select Number: 10 Other Symptoms or Health Problems Select Number: 10 Different Tasks and Activities Select Number: 10 Medication Select Number: 10 Total Score:: 10 Nutrition Survey Nutrition Survey Instructions Scoring Instructions Nutrition Survey Initial: Have you lost >10 lbs over the past 2 months without trying?: Yes Are you following a special diet at home for diabetes, low fat, or low salt?: No Are you interested in meeting with a dietitian for help understanding your diet?: Yes Do you eat less than 3 meals a day?: Yes Do you eat fatty meats (valle, sausage, ribs, etc), fried foods, desserts, large amounts of salad dressings, margarine, butter, or cheese most days?: No Do you have food allergies? [Enter types in comment field]: No Do you eat in restaurants more than 3 times a week?: No Do you season food with salt, seasoning salt, or garlic salt?: No Do you used canned, boxed, frozen meals, or soups, seasoning packets?: No Total Score:: 3 Exercise - 30-day Assessment Physician Prescribed Exercise Modalities: Treadmill, [employer] AD-7, SciFit Stepper, SciFit Pro-II Ergometer and SciFit Lateral Lisman Exercise - 60-day Assessment Physician Prescribed Exercise Modalities: Treadmill, [employer] AD-7, [employer] Stepper, [employer] Pro-II Ergometer and SciFit Lateral Acute Care Clinical Nurse Specialist Exercise - 90-day Assessment Physician Prescribed Exercise Modalities: Treadmill, [employer] AD-7, SciFit Stepper, [employer] Pro-II Ergometer and SciFit Lateral Lisman Exercise - Final/Discharge Physician Prescribed Exercise Modalities: Treadmill, Jenny Airdyne AD-7, SciFit Stepper, Sci[employer] Pro-II Ergometer and SciFit Lateral Lisman Frequency: 3x/week for 12 weeks [36 sessions] Intensity: 60-80% of age predicted maximum heart rate reserve Current METSs:: 3 Target Heart Rate:: 83-104 Nutrition - 30-Day Assessment Weight Mgt (Other Care) Height: 5 ft 8 in Weight:: 130 lb BMI: 19.8 Nutrition - 60-Day Assessment Weight Mgt (Other Care) Height: 5 ft 8 in Weight:: 130 lb BMI: 19.8 Core - Final Assessment Hypertension Resting Blood Pressure:: 106/62 [place] [employer] Hypertension Guidelines Core - 60-Day Assessment Hypertension Resting Blood Pressure:: 106/62 [place] [employer] Hypertension Guidelines Psychosocial - 30-Day Assess Target Goals Target Goals Referral to Behavioral Health PS - Interventions: Yes: Attend Stress Management Classes Psychosocial - 60-Day Assess Target Goals Target Goals Referral to Behavioral Health PS - Interventions: Yes: Attend Stress Management Classes Psychosocial - 90-Day Assess Target Goals Target Goals Referral to Behavioral Health PS - Interventions: Yes: Attend Stress Management Classes Psychosocial - Final Assessmen Target Goals Target Goals Referral to Behavioral Health PS - Interventions: Yes: Attend Stress Management Classes Nutrition - 90-Day Assessment Weight Mgt (Other Care) Height: 5 ft 8 in Weight:: 130 lb BMI: 19.8 Nutrition - Final Assessment Weight Mgt (Other Care) Height: 5 ft 8 in Weight:: 130 lb BMI: 19.8
[2024-04-26 08:41] VITALS: BP 106/62; PULSE 87; O2SAT 96
[2024-04-26 09:12] VITALS: BMI 19.8
[2024-04-26 09:20] VITALS: BP 106/62; BMI 19.8
== END | disposition home or self-care (01) ==
PROVIDERS: PCP Family Medicine
DX: Z95.1 Presence of aortocoronary bypass graft (principal); I71.21 Aneurysm of the ascending aorta, without rupture; Z79.82 Long term (current) use of aspirin; Z85.828 Personal history of other malignant neoplasm of skin; Z87.891 Personal history of nicotine dependence

== ENCOUNTER 2024-04-28 08:53 | Outpatient (RCR) | payer MEDICARE, OTHER, SELFPAY ==
[2024-04-26 09:20] VITALS: BMI 19.8
== END 2024-04-29 23:59 ==
LOC: CR 08:53
PROVIDERS: PCP Family Medicine
DX: Z95.1 Presence of aortocoronary bypass graft (principal)
CPT/HCPCS: 93798

== ENCOUNTER 2024-05-26 09:15 | Outpatient (RCR) | payer MEDICARE, OTHER, SELFPAY ==
[2024-04-26 09:20] VITALS: BMI 19.8
--- NOTE | 2024-05-26 11:37 | CR.ITP_ITS ---
Exercise - Initial Assessment Visit Session #:: 12 Physician Prescribed Exercise Modalities: Treadmill, Schwinn Airdyne AD-7 and SciFit Stepper Nutrition - Initial Assessment Weight Mgt (Other Care) Height: 5 ft 8 in Weight:: 129 lb 8 oz BMI: 19.7 Psychosocial - Initial Assess Target Goals Target Goals Referral to Behavioral Health PS - Interventions: Yes: Attend Stress Management Classes Patient Health Questionnaire PHQ-9 Screening 30-Day Re-eval Assessment: 1. Little interest or pleasure in doing things: Several days 2. Feeling down, depressed, or hopeless: Several days 3. Trouble falling or staying asleep, or sleeping too much: Several days 4. Feeling tired or having little energy: Several days 5. Poor appetite or overeating: Several days 6. Feeling bad about yourself -- or that you are a failure or have let yourself or your family down: Not at all 7. Trouble concentrating on things, such as reading the newspaper or watching television: Not at all 8. Moving or speaking so slowly that other people could have noticed. Or the opposite - being so fidgety or restless that you have been moving around a lot more than usual: Not at all 9. Thoughts that you would be better off , or of hurting yourself in some way: Not at all How difficult have these problems made it for you to do your work, take care of things at home, or get along with other people?: Somewhat difficult Total Score: 5 Self-Efficacy 6-Item Scale 30-Day Re-eval Assessment: We would like to know how confident you are in doing certain activities. Please select your confidence level for: Fatigue Select Number: 10 Physical Discomfort or Pain Select Number: 10 Emotional Distress Select Number: 10 Other Symptoms or Health Problems Select Number: 10 Different Tasks and Activities Select Number: 10 Medication Nutrition Survey Nutrition Survey Instructions Scoring Instructions Exercise - 30-day Assessment Visit Date of Eval: 05/26/24 Session #:: 12 Physician Prescribed Exercise Modalities: Treadmill, Schwinn Airdyne AD-7 and SciFit Stepper Frequency: 3x/week for 12 weeks [36 sessions] Intensity: 60-80% of age predicted maximum heart rate reserve Duration: 30 - 45 minutes Current METSs:: 4.7 Target Heart Rate:: 83-104 Current RPE:: 11-12 Maximum Excercise HR:: 108 Resting Blood Pressure: 130/80 Maximum Exercise Blood Pressure: 144/66 EKG Type: 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, occas to frreq Outcomes & Goals Goals:: Verbalizes understanding of THR, RPE & goal METS by session 6, Documents in home exercise log/reports 30 min aerobic 5 day/wk by DC, Demonstrates accurate pulse taking by DC and Other additional outcome/goals: see below Intervention & Plan Exercise Program Goals: Instruct on personal THR & RPE, Instruct on MET level & personal MET goal, Show patient to take own pulse /validate performance until accurate, Instruct on home exercise and Other additional plan/int 30-day Reassessments 30 day Reassessments:: Progressing Reassessment Notes & Comments:: RPE explained. Pt demonstrates understanding Physical Activity Home Exercise Physical Activity - Home Exercise: Safe Exercise, Warm-up, Self-monitoring, Cool-Down, Home Exercise > 30 min Daily and Sitting Time <3 hours/daily Outcomes & Goals Outcomes/Goals: Demonstrates correct Warm-up/exercise Cool-Down (S3) if = 2.5 METs, Verbalizes symptoms of exercise intolerance by Session 3 (S3), Demonstrate safe equipment use (S3) & follows exercise prescrition (6) and Other: See below Intervention & Plan Plan/Intervention: Instruct warm-up & cool-down if exercising at > 2 METs, In struct on symptoms of exercise intolerance & actions to take, Instruct & monitor on saf, Assess intial functional capacity & safety risk and Other See below 30-day Reassessments 30 day Reassessments:: Progressing Reassessment Notes & Comments:: Slow warm up explained. Pt demonstrates understanding. Exercise - 60-day Assessment Physician Prescribed Exercise Modalities: Treadmill, Schwinn Airdyne AD-7 and SciFit Stepper Exercise - 90-day Assessment Physician Prescribed Exercise Modalities: Treadmill, Schwinn Airdyne AD-7 and SciFit Stepper Exercise - Final/Discharge Physician Prescribed Exercise Modalities: Treadmill, Schwinn Airdyne AD-7 and SciFit Stepper Nutrition - 30-Day Assessment Visit Date of Eval: 05/26/24 Session #:: 12 Cholesterol/Lipids (Other Core Measures) Determine presence & major risk factors that modify LDL goal: Hypertension or hypertensive medication, Low HDL cholesterol <40 mg/dL*, Family history of premature CHD in Male < 55 years: female <65 yearsFa and Age men > 45 years; women >/= 55 years Outcomes/Goals: Pt IDs own risk factors & lifestyle modifications by Session 10, Verbalizes symptoms of angina & response by session 3., Pt independently manages and Other Additional Outcomes/Goals: Intervention/Plan: Advocate for lipid panel cholesterol medication if applicab le, Instruct on personal lipid levels & lipid goals/NCEP guidelines, Instruct on cholesterol and Other additional plan/int 30-day Reassessments:: Progressing Reassessment Notes & Comments:: risk factors explained and how to minimize risk factors. Pt demonstrates understanding Diabetes (Other Core Measures) Diabetes Type: Not Applicable Weight Mgt (Other Care) Height: 5 ft 8 in Weight:: 129 lb 8 oz BMI: 19.7 Diagnosis Overweight/Obesity BMI> 30% ICD-10 E66: No Diagnosis High BMI/Morbid Obesity BMI> 35% ICD-10 Z68: No Outcomes/Goals: Pt sets, maintains & shows weight loss goal & trend during rehab and Other additional outcomes/goals Intervention/Plan: Instruct on ideal BMI & set weight loss goal w/patient, Assist pt to ID & incorporate diet changes for weight loss by S9, Refer to Structured Weight Loss program as appropriate, Encourage goal of using 250- 300dcal per session for weight loss and Other additional plan/interventions 30 day Reassessments:: Progressing Reassessment Notes & Comments:: Pt is to attend nutrition class Healthy Eating Habits Will attend diet classes:: Yes Outcomes/Goals:: Consume diet rich in vegs,fruits,whole grain/high fiber,fish,lean meat, Limit sat/trans fats,cholesterol & added salts & sugars and Other additional outcome/goals: Intervention/Plan:: Assess current eating habits and Other Additional plan/interventions 30-day Reassessments:: Progressing Reassessment Notes & Comments:: Pt is to attend nutrition class Education Gave educational materials for:: Signs & symptoms of hypoglycemia, Signs & symptoms of hyperglycemia, Relate diabetes to coronary artery disease and Healthy eating Nutrition - 60-Day Assessment Weight Mgt (Other Care) Height: 5 ft 8 in Weight:: 129 lb 8 oz BMI: 19.7 Core - 30-Day Assessment Visit Date of Eval: 05/26/24 Session #:: 12 Medication Compliance Preventative Medication(s):: Aspirin and Statin/lipid H/O mental health issues: depression, anxiety, or addiction?: No Doesn?t believe in the benefits of treatment?: No Believes medications are unnecessary or harmful?: No Has a concern about medication side effects?: No Expresses concern over the cost of medications?: No Outcomes/Goals: Verbalizes medications,desired effect & common side effects @ DC, Pt self-reports following medication regimen, Keeps card in wallet w/medications listed by DC and Other additional outcome/goals: Interventions/plans: Instruct on medication effects & side effects, Review medication list w/patient every two weeks, Instruct importance of taking meds as ordered & assist problem solving and Other additional 30-day Reassessments:: Progressing Reassessment Notes & Comments:: Pt taking meds as prescribed. No changes at this time. Tobacco Use Tobacco Use: Non-smoker Hypertension Resting Blood Pressure:: 130/80 [place] [employer] Hypertension Guidelines Peak Exercise Blood Pressure:: 144/60 Outcomes/Goals: Able to verbalize/achieve optimal blood pressure <130/80, Incorporates diet changes & exercise for blood pressure control by DC and Other additional outcomes/goals Interventions/plan: Instruct on optimal blood pressure, hypertension & medications, Instruct on effects of sodium, alcohol, stress, exercise &hypertension and Other additional plan/interventions 30 day Reassessments:: Progressing Reassessment Notes & Comments:: Pt's BP's slightly elevated. Will continue to monitor Tobacco Cessation Referral Smoking Cessation Referral:: No Individual Education/Counseling:: No Education Schedule Given:: Yes Psychosocial - 30-Day Assess VIsit Date of Eval: 05/26/24 Session #:: 12 History of previous Mental disease:: Yes History of Emotional Disorders: Depression (pt experiencing some mild depression since his surgery. Feels that starting a structured exercise program will be helpful) Self-reported stressors Other/Comments:: Recent Illness Target Goals Target Goals Psychosocial Test Tool Used:: Ferrans Power QOL Cardiac and PHQ-9 Questionnaire phq-9 Severity Referral to Behavioral Health PS - Interventions: Yes: Attend Stress Management Classes Outcomes/Goals: See list Psychosocial Outcomes/Goals:: ID's personal stressors & 2 strategies to manage stress by discharge and Other Additional outcome/goals: Intervention/Plan: See List Interventions/Plan:: Assess stressors,coping strategies & signs of derpression on admission, Instruct/assist pt to develop coping & personal stress Mgt strategies, Refer to Behavioral Health if appropriate, Refer to Physician if appropriate, Instruct patient to recognize signs & symptoms of depression, Instruct patient to recog and Other additional plan/intervention 30-day Reassessments: 30 day Reassessments:: Progressing Reassessment Notes & Comments:: pt experiencing some mild depression since his surgery. Feels that starting a structured exercise program will be helpful Psychosocial - 60-Day Assess Target Goals Target Goals Referral to Behavioral Health PS - Interventions: Yes: Attend Stress Management Classes Outcomes/Goals: See list Psychosocial Outcomes/Goals:: ID's personal stressors & 2 strategies to manage stress by discharge and Other Additional outcome/goals: Psychosocial - 90-Day Assess Target Goals Target Goals Referral to Behavioral Health PS - Interventions: Yes: Attend Stress Management Classes Psychosocial - Final Assessmen Target Goals Target Goals Referral to Behavioral Health PS - Interventions: Yes: Attend Stress Management Classes Nutrition - 90-Day Assessment Weight Mgt (Other Care) Height: 5 ft 8 in Weight:: 129 lb 8 oz BMI: 19.7 Nutrition - Final Assessment Weight Mgt (Other Care) Height: 5 ft 8 in Weight:: 129 lb 8 oz BMI: 19.7
[2024-05-26 11:56] VITALS: BP 130/80; BMI 19.7
== END 2024-05-29 23:59 ==
LOC: CR 09:15
PROVIDERS: PCP Family Medicine
DX: Z95.1 Presence of aortocoronary bypass graft
CPT/HCPCS: 93798

== ENCOUNTER 2024-06-28 09:15 | Outpatient (RCR) | payer MEDICARE, OTHER, SELFPAY ==
[2024-05-30 00:21] VITALS: BP 130/80
--- NOTE | 2024-06-25 08:46 | PCM.CR.ITP ---
Exercise - Initial Assessment Physician Prescribed Exercise Modalities: Treadmill, Schwinn Airdyne AD-7 and SciFit Stepper Nutrition - Initial Assessment Weight Mgt (Other Care) Height: 5 ft 8 in Weight:: 135 lb BMI: 20.5 Core - Initial Assessment Hypertension Resting Blood Pressure:: 110/70 [place] [employer] Hypertension Guidelines Psychosocial - Initial Assess Target Goals Target Goals Referral to Behavioral Health PS - Interventions: Yes: Attend Stress Management Classes Patient Health Questionnaire PHQ-9 Screening 60-Day Re-eval Assessment: 1. Little interest or pleasure in doing things: Several days 2. Feeling down, depressed, or hopeless: Several days 3. Trouble falling or staying asleep, or sleeping too much: Several days 4. Feeling tired or having little energy: Several days 5. Poor appetite or overeating: Several days 6. Feeling bad about yourself -- or that you are a failure or have let yourself or your family down: Not at all 7. Trouble concentrating on things, such as reading the newspaper or watching television: Not at all 8. Moving or speaking so slowly that other people could have noticed. Or the opposite - being so fidgety or restless that you have been moving around a lot more than usual: Not at all 9. Thoughts that you would be better off , or of hurting yourself in some way: Not at all How difficult have these problems made it for you to do your work, take care of things at home, or get along with other people?: Somewhat difficult Total Score: 5 Self-Efficacy 6-Item Scale 60-Day Re-eval Assessment: We would like to know how confident you are in doing certain activities. Please select your confidence level for: Fatigue Select Number: 10 Physical Discomfort or Pain Select Number: 10 Emotional Distress Select Number: 10 Other Symptoms or Health Problems Select Number: 10 Different Tasks and Activities Select Number: 10 Medication Select Number: 10 Total Score:: 10 Nutrition Survey Nutrition Survey Instructions Scoring Instructions Exercise - 30-day Assessment Physician Prescribed Exercise Modalities: Treadmill, Schwinn Airdyne AD-7 and SciFit Stepper Exercise - 60-day Assessment Visit Date of Eval: 06/25/24 Session #:: 23 Physician Prescribed Exercise Modalities: Treadmill, Schwinn Airdyne AD-7 and SciFit Stepper Frequency: 3x/week for 12 weeks [36 sessions] Intensity: 60-80% of age predicted maximum heart rate reserve Duration: 30 - 45 minutes Current METSs:: 5.7 Current RPE:: 11-13 Maximum Excercise HR:: 116 Resting Blood Pressure: 138/70 Maximum Exercise Blood Pressure: 140/80 (Paced rhythm(atrial sensed,vent paced)with underlying SR to ST w/ 1st degree AVB with a rare pac, occas pvc. 1 short episode vent bigeminy. One vent couplet. Twave inv. Rare periods of ectopic atrial rhythm vs afib. Doctor aware.) Outcomes & Goals Goals:: Verbalizes understanding of THR, RPE & goal METS by session 6, Documents in home exercise log/reports 30 min aerobic 5 day/wk by DC, Demonstrates accurate pulse taking by DC and Other additional outcome/goals: see below Intervention & Plan Exercise Program Goals: Instruct on personal THR & RPE, Instruct on MET level & personal MET goal, Show patient to take own pulse /validate performance until accurate, Instruct on home exercise and Other additional plan/int Physical Activity Home Exercise Physical Activity - Home Exercise: Safe Exercise, Warm-up, Self-monitoring, Cool-Down, Home Exercise > 30 min Daily and Sitting Time <3 hours/daily Outcomes & Goals Outcomes/Goals: Demonstrates correct Warm-up/exercise Cool-Down (S3) if = 2.5 METs, Verbalizes symptoms of exercise intolerance by Session 3 (S3), Demonstrate safe equipment use (S3) & follows exercise prescrition (6) and Other: See below Intervention & Plan Plan/Intervention: Instruct warm-up & cool-down if exercising at > 2 METs, Instruct on symptoms of exercise intolerance & actions to take, Instruct & monitor on saf, Assess intial functional capacity & safety risk and Other See below 30-day Reassessments 30 day Reassessments:: Progressing Reassessment Notes & Comments:: Proper warm up explained to pt. Pt is able to return demonstration and understands the importance. Exercise - 90-day Assessment Physician Prescribed Exercise Modalities: Treadmill, Schwinn Airdyne AD-7 and SciFit Stepper Exercise - Final/Discharge Physician Prescribed Exercise Modalities: Treadmill, Schwinn Airdyne AD-7 and SciFit Stepper Nutrition - 30-Day Assessment Weight Mgt (Other Care) Height: 5 ft 8 in Weight:: 135 lb BMI: 20.5 Nutrition - 60-Day Assessment Visit Date of Eval: 06/25/24 Session #:: 23 Cholesterol/Lipids (Other Core Measures) Determine presence & major risk factors that modify LDL goal: Hypertension or hypertensive medication, Low HDL cholesterol <40 mg/dL*, Family history of premature CHD in Male < 55 years: female <65 yearsFa and Age men > 45 years; women >/= 55 years Outcomes/Goals: Pt IDs own risk factors & lifestyle modifications by Session 10, Verbalizes symptoms of angina & response by session 3., Pt independently manages and Other Additional Outcomes/Goals: Intervention/Plan: Advocate for lipid panel cholesterol medication if applicable, Instruct on personal lipid levels & lipid goals/NCEP guidelines, Instruct on cholesterol and Other additional plan/int Diabetes (Other Core Measures) Diabetes Type: Not Applicable Weight Mgt (Other Care) Height: 5 ft 8 in Weight:: 135 lb BMI: 20.5 Diagnosis Overweight/Obesity BMI> 30% ICD-10 E66: No Diagnosis High BMI/Morbid Obesity BMI> 35% ICD-10 Z68: No Outcomes/Goals: Pt sets, maintains & shows weight loss goal & trend during rehab and Other additional outcomes/goals Intervention/Plan: Instruct on ideal BMI & set weight loss goal w/patient, Assist pt to ID & incorporate diet changes for weight loss by S9, Refer to Structured Weight Loss program as appropriate, Encourage goal of using 250-300dcal per session for weight loss and Other additional plan/interventions Healthy Eating Habits Will attend diet classes:: Yes Outcomes/Goals:: Consume diet rich in vegs,fruits,whole grain/high fiber,fish,lean meat, Limit sat/trans fats,cholesterol & added salts & sugars and Other additional outcome/goals: Intervention/Plan:: Assess current eating habits and Other Additional plan/interventions 30-day Reassessments:: Progressing Reassessment Notes & Comments:: Pt has attended nutrition class. Pt is encouraged to keep a food log. Pt understands the importance of a heart healthy diet. Education Gave educational materials for:: Signs & symptoms of hypoglycemia, Signs & symptoms of hyperglycemia, Relate diabetes to coronary artery disease and Healthy eating Core - Final Assessment Hypertension Resting Blood Pressure:: 110/70 [place] [employer] Hypertension Guidelines Core - 60-Day Assessment Visit Date of Eval: 06/25/24 Medication Compliance Preventative Medication(s):: Aspirin and Statin/lipid H/O mental health issues: depression, anxiety, or addiction?: No Doesn?t believe in the benefits of treatment?: No Believes medications are unnecessary or harmful?: No Has a concern about medication side effects?: No Expresses concern over the cost of medications?: No Outcomes/Goals: Verbalizes medications,desired effect & common side effects @ DC, Pt self-reports following medication regimen, Keeps card in wallet w/medications listed by DC and Other additional outcome/goals: Interventions/plans: Instruct on medication effects & side effects, Review medication list w/patient every two weeks, Instruct importance of taking meds as ordered & assist problem solving and Other additional Tobacco Use Tobacco Use: Non-smoker Hypertension Resting Blood Pressure:: 138/70 Resting Blood Pressure:: 110/70 [place] [employer] Hypertension Guidelines Peak Exercise Blood Pressure:: 140/80 Outcomes/Goals: Able to verbalize/achieve optimal blood pressure <130/80, Incorporates diet changes & exercise for blood pressure control by DC and Other additional outcomes/goals Interventions/plan: Instruct on optimal blood pressure, hypertension & medications, Instruct on effects of sodium, alcohol, stress, exercise &hypertension and Other additional plan/interventions 30 day Reassessments:: Progressing Reassessment Notes & Comments:: Pt's BP's are still slightly elevated. Stressed to importance of a low sodium diet. Will continue to monitor. Will send bp's to pt's physician if necessary. Tobacco Cessation Referral Smoking Cessation Referral:: No Individual Education/Counseling:: No Education Schedule Given:: Yes Psychosocial - 30-Day Assess Target Goals Target Goals Referral to Behavioral Health PS - Interventions: Yes: Attend Stress Management Classes Outcomes/Goals: See list Psychosocial Outcomes/Goals:: ID's personal stressors & 2 strategies to manage stress by discharge and Other Additional outcome/goals: Psychosocial - 60-Day Assess VIsit Date of Eval: 06/25/24 Session #:: 23 History of previous Mental disease:: Yes History of Emotional Disorders: Depression Self-reported stressors Other/Comments:: Recent Illness (Pt is experiencing some mild depression since his surgery. Pt feels that a structured exercise program will be helpful. Pt seems to be doing very well.) Target Goals Target Goals Psychosocial Test Tool Used:: [employer] Power QOL Cardiac and PHQ-9 Questionnaire phq-9 Severity Referral to Behavioral Health PS - Interventions: Yes: Attend Stress Management Classes Outcomes/Goals: See list Psychosocial Outcomes/Goals:: ID's personal stressors & 2 strategies to manage stress by discharge and Other Additional outcome/goals: Intervention/Plan: See List Interventions/Plan:: Assess stressors,coping strategies & signs of derpression on admission, Instruct/assist pt to develop coping & personal stress Mgt strategies, Refer to Behavioral Health if appropriate, Refer to Physician if appropriate, Instruct patient to recognize signs & symptoms of depression, Instruct patient to recog and Other additional plan/intervention 30-day Reassessments: 30 day Reassessments:: Progressing Reassessment Notes & Comments:: Pt is experiencing some mild depression since his surgery. Pt feels that a structured exercise program will be helpful. Pt seems to be doing very well. Will continue to monitor and offer counseling if necessary. Psychosocial - 90-Day Assess Target Goals Target Goals Referral to Behavioral Health PS - Interventions: Yes: Attend Stress Management Classes Psychosocial - Final Assessmen Target Goals Target Goals Referral to Behavioral Health PS - Interventions: Yes: Attend Stress Management Classes Nutrition - 90-Day Assessment Weight Mgt (Other Care) Height: 5 ft 8 in Weight:: 135 lb BMI: 20.5 Nutrition - Final Assessment Weight Mgt (Other Care) Height: 5 ft 8 in Weight:: 135 lb BMI: 20.5
[2024-06-25 09:05] VITALS: BP 110/70; BP 138/70; BMI 20.5
== END 2024-06-29 23:59 ==
LOC: CR 09:15
PROVIDERS: PCP Family Medicine
DX: Z95.1 Presence of aortocoronary bypass graft (principal)
CPT/HCPCS: 93798

== ENCOUNTER 2024-07-19 09:15 | Outpatient (RCR) | payer MEDICARE, OTHER, SELFPAY ==
[2024-06-30 00:14] VITALS: BP 110/70; BP 130/80; BP 138/70; BMI 19.7
== END 2024-07-30 23:59 ==
LOC: CR 09:15
PROVIDERS: PCP Family Medicine
DX: Z95.1 Presence of aortocoronary bypass graft (principal)

== ENCOUNTER 2025-04-24 18:24 | Inpatient (IN) | payer MEDICARE, OTHER, SELFPAY ==
[2025-04-24 18:25] VITALS: BMI 20.5
[2025-04-24 18:26] VITALS: BP 182/99; PULSE 61; RESP 16; TEMP 36.8; O2SAT 98; BMI 22.4
[2025-04-24 18:36] VITALS: BP 171/106; PULSE 73; RESP 18; O2SAT 91
--- NOTE | 2025-04-24 18:43 | RAD_ITS ---
PROCEDURE: RAD/HIP, UNI W/ Pelvis 2-3 Views
--- NOTE | 2025-04-24 18:48 | ED.VIS.LOWEX ---
HPI History of Present Illness Chief Complaint: Lower Extremity Injury Narrative Narrative: Patient is a 84-year-old male presenting to the emergency department for right hip pain after a fall. Patient states that he was working on a car and was using a wrench when he pulled it back and lost his balance causing him to fall on his right side. He reports he did not hit his head and had no LOC. He is not on any current anticoagulation. He states he was not able to ambulate afterwards due to right hip pain. He denies any other injuries. Denies any neck or back pain. [facility] Medical History Ascending aortic aneurysm Wears glasses Former smoker History of echocardiogram Cardiology follow-up encounter Squamous cell carcinoma Skin lesion of face History of skin cancer Osteoarthritis Home Medications ?Medication ?Instructions ?Recorded ?Last Taken ?Type multivitamin 1 ea PO DAILY 04/29/17 Unknown History cholecalciferol (vitamin D3) 125 5,000 unit PO DAILY 05/03/19 04/24/25 History mcg (5,000 unit) capsule coenzyme Q10 300 mg capsule 300 mg PO DAILY 05/03/19 04/24/25 09:00 History zinc 1 tab PO DAILY 05/08/22 04/24/25 09:00 History aspirin 81 mg tablet 81 mg PO DAILY 04/24/25 04/24/25 09:00 History magnesium 250 mg tablet 250 mg PO DAILY 04/24/25 04/24/25 09:00 History metformin 500 mg tablet 500 mg PO DAILY 04/24/25 Unknown History tamsulosin 0.4 mg capsule 0.4 mg PO DAILY 04/24/25 Unknown History Allergy/AdvReac Type Severity Reaction Status Date / Time No Known Allergies Allergy Verified 05/10/22 07:29 Family History Father No problems noted. Surgical History History of tonsillectomy and adenoidectomy Status post Mohs surgery for squamous cell carcinoma in situ of skin History of surgical removal of skin lesion History of surgery on wrist History of colonoscopy Social History Smoking Status: Former smoker ROS ROS ED ROS Narrative See HPI EXAM Physical Exam Narrative Exam Narrative: Vital signs: Reviewed General: Alert and oriented x 3. No acute distress HEENT: Head is normocephalic and atraumatic.no cephalhematoma, lacerations or abrasions to the head or face. Sinuses nontender, pupils equal round and reactive. Nares are patent. Oropharynx and throat exams normal. Neck: Supple without lymphadenopathy nontender. No midline cervical spinal tenderness to palpation. No step-offs or deformities. Cardiovascular: Regular rate and rhythm, no murmurs. No rubs or gallops. Normal S1 and S2 Respiratory: Clear to auscultation bilaterally. No wheezes, rales, rhonchi Chest: Chest wall is atraumatic and nontender to palpation. There is no ecchymosis, erythema or crepitus. Abdominal: Soft and nontender. Normal bowel sounds. No guarding or rebound. Nonsurgical abdomen Extremities: No midline thoracic or lumbar spinal tenderness to palpation. No step-offs or deformities. Hips are stable. Left hip is nontender to palpation. Right lateral posterior hip is tender to palpation. There is no tenderness to palpation of the right femur, knee, tib-fib, ankle or foot. The leg is held in a shortened and externally rotated position. DP and PT pulses are intact bilaterally. Sensation intact. Patient able to wiggle toes. Flexion extension at the hip is limited due to pain. Extremities are otherwise atraumatic and nontender to palpation with normal active range of motion. Skin: No rash or redness. The rest of the physical exam is unremarkable Const Vital Signs: 04/24/25 18:26 04/24/25 18:36 04/24/25 20:25 Temperature 98.3 F Temperature Source Oral Pulse Rate 61 73 66 Respiratory Rate 16 18 15 Blood Pressure 182/99 H 171/106 H 169/87 H Blood Pressure Mean 126 127 114 Pulse Ox 98 91 99 Oxygen Delivery Method Room Air Room Air Room Air 04/24/25 21:51 Temperature 98.6 F Temperature Source Pulse Rate 77 Respiratory Rate 12 Blood Pressure 162/86 H Blood Pressure Mean 111 Pulse Ox 100 Oxygen Delivery Method MDM MDM MDM Narrative Medical decision making narrative: Patient is an 84-year-old male presenting to the emergency department for right hip pain after a fall. Patient was seen and examined. Vitals are stable. Patient resting in bed comfortably in no acute distress. Differential includes but is not limited to: Fracture, dislocation, sprain Given the patient's age and fall will obtain CT of the brain and cervical spine. Will also obtain a right hip x-ray series. Analgesia given. CT of the brain with no acute traumatic findings. Chronic findings seen in the report. CT cervical spine with no acute traumatic findings. Chronic findings seen in the report. X-ray of the hip was reviewed by myself and there is evidence of a intertrochanteric fracture. No dislocation. I discussed the findings with the patient. He asked that Dr. Ochoa performed the procedure and I explained that the physician he is asking for is not on-call. I explained that Dr. Mcdowell is on-call for no doc. He states that he does not want him to perform his procedure due to an interaction that happened with one of his friends in the office reportedly. I attempted to call Dr. Burrell who is on-call for was to orthopedics who informed me that it was inappropriate that I was calling him for a patient that is not part of his group. Dr. Mcdowell was then called and consulted on the patient. He recommended that if the patient did not want him to perform the surgery to be transferred out. I presented the options to the patient and he decided to stay here for surgery done by Dr. Mcdowell. Dr. Mcdowell asked that the patient be admitted to the hospitalist for further management. Admitted to Dr. Roque. Clinical impression Hip fracture, right History & Record Review Discussion w/independent historian: Patient Radiography Diagnostic Testing: Clinical Impression(s) from Imaging Studies Hip/Pelvis X-Ray 04/24/25 18:43 IMPRESSION: As above. Reading Location: [id number] Brain CT 04/24/25 19:21 IMPRESSION: No acute traumatic findings. Chronic/degenerative changes as described. Reading Location: [facility] Cervical Spine CT 04/24/25 19:21 IMPRESSION: No acute traumatic findings. Chronic/degenerative changes as described. Reading Location: [facility] Discharge Plan Triage Chief Complaint: Lower Extremity Injury ED Provider: Anjali Myrick Dx/Rx/DC Orders Prescriptions: No Action cholecalciferol (vitamin D3) 5,000 unit capsule 5,000 unit PO DAILY coenzyme Q10 300 mg capsule 300 mg PO DAILY multivitamin 1 EACH tablet 1 ea PO DAILY zinc Tablet,Chewable 1 tab PO DAILY metformin 500 mg tablet 500 mg PO DAILY tamsulosin 0.4 mg capsule 0.4 mg PO DAILY Patient Comments: HAS NOT TAKEN FOR A COUPLE OF DAYS OF 04/24/25 aspirin 81 mg tablet 81 mg PO DAILY magnesium 250 mg tablet 250 mg PO DAILY Primary Care Provider: Kevin Mcadams Referrals: Kevin Mcadams MD [Primary Care Provider, Family Practice] Print Language: [place] Citizen
[2025-04-24] MEDS: fentaNYL 100 MCG/2 ML Ampul 50 MCG IV (19:13)
--- NOTE | 2025-04-24 19:21 | CT_ITS ---
EXAM: CT/Spine Cervical without Contras
--- NOTE | 2025-04-24 19:21 | CT_ITS ---
EXAM: CT/Brain/Head without Contrast
--- NOTE | 2025-04-24 20:08 | CM.ED ---
Social Work Date of referral: 04/24/25 Reason for referral: No Advanced Care Directives (ACD's) on file. Referred by: Social Work Identification Patient provided consent to social work visit. electric utility lineworker asked patient to bring in a copy of ACD's which patient agreed to do. Aria Rodriguez, [employer] AIDE TEACHER, WAISTBAND SETTER LOCKSTITCH
[2025-04-24 20:25] VITALS: BP 169/87; PULSE 66; RESP 15; O2SAT 99
[2025-04-24 21:51] VITALS: BP 162/86; PULSE 77; RESP 12; TEMP 37; O2SAT 100
--- NOTE | 2025-04-24 22:14 | PCM.HP.STD ---
[facility] - General General Date of Admission: 04/24/25 Date of Service: 04/24/25 Chief Complaint: Right Hip Pain after Fall. 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 Mr. Zee reports his symptoms began earlier today while he was working on his car was using a wrench when he pulled back and suddenly lost his balance causing him to fall onto his Right side with subsequent severe pain and inability to ambulate. He denies hitting his head or LOC associated with the fall. He also denies taking anticoagulants or other significant injuries. There was no report of associated fever, chills, nausea, vomiting, diarrhea, constipation, abdominal pain, chest pain, palpitations, heart racing, dysuria, hematuria, headache or rash. In the ER he underwent x-rays of the hip and pelvis that revealed a mildly impacted intertrochanteric fracture of the proximal Right femur noted without dislocation and he was then admitted to the general medical floor for ongoing care for state that is expected to extend beyond 2 midnights. [facility] Medical History Thoracic ascending aortic aneurysm Pacemaker FH: CABG (coronary artery bypass surgery) BPH (benign prostatic hyperplasia) Diabetes Ascending aortic aneurysm Wears glasses Former smoker History of echocardiogram Cardiology follow-up encounter Squamous cell carcinoma Skin lesion of face History of skin cancer Osteoarthritis Home Medications ?Medication ?Instructions ?Recorded ?Last Taken ?Type multivitamin 1 ea PO DAILY supplement 04/29/17 Unknown History cholecalciferol (vitamin D3) 125 5,000 unit PO DAILY supplement 05/03/19 04/24/25 History mcg (5,000 unit) capsule coenzyme Q10 300 mg capsule 300 mg PO DAILY supplement 05/03/19 04/24/25 09:00 History zinc 1 tab PO DAILY supplement 05/08/22 04/24/25 09:00 History aspirin 81 mg tablet 81 mg PO DAILY blood thinner 04/24/25 04/24/25 09:00 History magnesium 250 mg tablet 250 mg PO DAILY supplement 04/24/25 04/24/25 09:00 History metformin 500 mg tablet 500 mg PO DAILY dm 04/24/25 Unknown History tamsulosin 0.4 mg capsule 0.4 mg PO DAILY bph 04/24/25 Unknown History Allergy/AdvReac Type Severity Reaction Status Date / Time No Known Allergies Allergy Verified 05/10/22 07:29 Family History Father No problems noted. Surgical History History of tonsillectomy and adenoidectomy Status post Mohs surgery for squamous cell carcinoma in situ of skin History of surgical removal of skin lesion History of surgery on wrist History of colonoscopy Social History Smoking Status: Former smoker ROS ROS Narrative Review of Systems: Constitutional: Patient denies fever or chills. Eyes: Patient denies change in vision or discharge from eyes. ENT: Patient denies runny nose, sore throat or ear pain. Resp: Patient denies shortness of breath or cough. CV: Patient denies chest pain, palpitations or heart racing. GI: Patient denies abdominal pain, nausea, vomiting, diarrhea or constipation. : Patient denies dysuria or hematuria. MSK: Patient admits to persistent Right hip pain with inability to ambulate since fall as per HPI. Skin: Patient denies rash. Psych: Patient denies symptoms of uncontrolled depression or anxiety. Neuro: Patient denies headache, paresthesias or focal neurologic deficits. Allergy: Patient denies lip swelling, tongue swelling or urticaria. Hematology: Patient denies easy bleeding or easy bruisability. Endocrinology: Patient denies polyuria, polydipsia, polyphagia or heat/cold intolerance. 14 point ROS otherwise negative except for positives noted above in HPI. Vital Signs Vital Signs Vital Signs: 04/24/25 18:26 04/24/25 18:36 04/24/25 20:25 Temperature 98.3 F Temperature Source Oral Pulse Rate 61 73 66 Respiratory Rate 16 18 15 Blood Pressure 182/99 H 171/106 H 169/87 H Blood Pressure Mean 126 127 114 Pulse Ox 98 91 99 Oxygen Delivery Method Room Air Room Air Room Air 04/24/25 21:51 Temperature 98.6 F Temperature Source Pulse Rate 77 Respiratory Rate 12 Blood Pressure 162/86 H Blood Pressure Mean 111 Pulse Ox 100 Oxygen Delivery Method Weight Weight: 142 lb 13.753 oz Body Mass Index (BMI) 22.4 Physical Exam Const alert, oriented x3, no apparent distress, average body habitus and healthy appearing General Appearance: cooperative HEENT normocephalic, head/scalp atraumatic, hearing grossly normal bilaterally and moist oral mucous membranes Eyes PERRL, EOMs intact bilaterally and conjunctivae normal Neck no lymphadenopathy, supple and no JVD Resp normal respiratory effort, no retractions, no use of accessory muscles and clear to auscultation bilaterally Cardio regular rate and regular rhythm GI normal to inspection, nondistended, normoactive bowel sounds, soft to palpation, non-tender and non-distended Extremity Extremity Narrative: Right hip is TTP posteriorly with limited range of motion with RLE shortening and external rotation. DP and PT pulses are intact bilaterally with intact sensation and patient able to wiggle toes with extremities otherwise atraumatic. Skin Skin Narrative: Patient no evidence of rash. Neuro oriented x3, CN's II-XII intact bilaterally, moves all extremities and no focal motor deficits Sensorium / Orientation: awake, alert, oriented to person, oriented to place and oriented to time Speech: speech normal Psych affect normal Results Medical Records Data Attestation: I reviewed the patient's medical records Lab / Micro Data Attestation: I reviewed the patient's lab results. 04/24/25 22:50 04/24/25 22:50 Imaging Radiology Impression Hip/Pelvis X-Ray 04/24/25 18:43 IMPRESSION: As above. Reading Location: [id number] Brain CT 04/24/25 19:21 IMPRESSION: No acute traumatic findings. Chronic/degenerative changes as described. Reading Location: [id number] Cervical Spine CT 04/24/25 19:21 IMPRESSION: No acute traumatic findings. Chronic/degenerative changes as described. Reading Location: [id number] [place] [facility] [address] [place] [id number] Chest WITH Contrast MR#: [id number] Acct: [id number] Name: SYED ZEE Rep #: [id number] : 1940 M 84 From: Sarah Vines MD PCP: Dr. Kevin Mcadams MD Status: ADM IN Study: Chest WITH Contrast Date of Exam: 04/24/25 Exam# [id number] Ordering Dr: Syed Roque DO PROCEDURE: CHEST WITH CONTRAST 04/24/2025 REASON FOR EXAM: HISTORY OF THORACIC ASCENDING AORTIC ANEURYSM. TECHNIQUE: Procedure Code: CTCHW Modality: CT Procedure: CHEST WITH CONTRAST Coronal and Sagittal reconstruction series were provided. CONTRAST: Isovue 370 VOLUME: 100 mL One or more dose reduction techniques were used (e.g., Automated exposure control, adjustment of the mA and/or kV according to patient size, use of iterative reconstruction technique). RADIATION DOSE SUMMARY: CTDlvol: 8.11 mGy DLP: 277 mGycm COMPARISON: CT scan on 05/29/2020. FINDINGS: Ectatic/aneurysmal ascending aorta measuring 4.2 cm, unchanged. Surgical changes of the aortic valve. Prior CABG. Mild cardiomegaly. Mild diffuse spondylosis. Small sliding hiatal hernia. Mild osteopenia. Bilateral basilar atelectatic pulmonary changes. Mild osteopenia. Normal enhancement of the main pulmonary artery and right and left pulmonary arteries. Normal enhancement of the bilateral peripheral pulmonary arteries. There is no demonstrated pulmonary embolism. Normal thoracic aorta and visualized great vessels. There is no demonstrated aortic dissection. Normal pericardium. Normal mediastinum. Normal hilar regions. Normal visualized trachea and bronchi. Normal pleura. Normal visualized upper abdomen. CT/Chest WITH Contrast IMPRESSION: Coronary artery calcification (CAC) is present. No demonstrated pulmonary embolism or arterial dissection. Ectatic/aneurysmal ascending aorta measuring 4.2 cm, unchanged. Surgical changes of the aortic valve. Prior CABG. Mild cardiomegaly. Mild diffuse spondylosis. Small sliding hiatal hernia. Mild osteopenia. Bilateral basilar atelectatic pulmonary changes. Reading Location: [place] [address] CC: Dr. Syed Roque DO; Dr. 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 X-rays of the hip and pelvis that revealed a mildly impacted intertrochanteric fracture of the proximal Right femur noted without dislocation after Mechanical Fall - Admit to general medical floor. Keep NPO for ORIF in AM. Give ketorolac IV prn for [id number] (level 1-5/10) pain or fever. Give morphine IV prn for severe (level 6-10/10) pain. Give ondansetron IV as needed for nausea and vomiting. Finally, ER physician spoke to orthopedic surgery with formal consult pending in a.m. for ORIF with help appreciated in advance. 2. CAD; s/p CABG x 1 with bovine bioprosthetic AVR on baby aspirin daily - Noted. Hold further BASA until okay to restart with orthopedics. 3. History of a ascending aortic aneurysm; s/p repair at [facility] (2023) - Checked CT chest to reassess with impeding ORIF with no acute pathologic changes noted. 4. History of arrhythmia; s/p PPM - Stable. 5. DM-2; of unknown control on metformin daily - Keep NPO for now. Check FSBS q. 6 hours with lowest-intensity SSI. 6. Former tobacco abuse - Noted. 7. 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 8. BPH; on tamsulosin - Resume present therapy. 9. OA - We will follow pain regimen and scales outlined in #1. 10. DVT prophylaxis - SCD's only due to increased risk of potential bleeding complications in cases of traumatic fracture. Orthopedist to decide upon postoperative DVT prophylaxis. Total time: Approximately (but not less than) 55 minutes. Charges/Coding Visit Charges Inpatient E&M: 51653 Init Hosp L2
[2025-04-24 23:01] LABS: Hematocrit 37.6 % (40-54); Hemoglobin 12.9 g/dL (13.0-16.5); Immature Granulocytes Count 0.040 X10^3/uL (0.0-0.0); Mean Corp Hgb Conc 34.3 g/dL (32-36); Mean Corpuscular Volume 85.3 fL (80-94); Mean Platelet Vol. 9.2 fl (6.2-12.0); NRBC Flagged by Analyzer 0 % (0-5); Platelet Count 208 K/mm3 (150-450); RBC Distribution Width CV 12.2 % (11.6-14.6); RBC Distribution Width SD 37.9 fl (35.1-43.9); Red Blood Count 4.41 M/mm3 (4.6-6.2); White Blood Count 11.1 K/mm3 (4.4-11.0)
--- NOTE | 2025-04-24 23:03 | CT_ITS ---
PROCEDURE: CT/Chest WITH Contrast
[2025-04-24 23:35] LABS: AST(SGOT) 34 U/L (<=37); Alanine Aminotransfer ALT/SGPT 32 U/L (<=46); Albumin, Serum 3.9 g/dL (3.4-4.8); Alkaline Phosphatase 111 U/L (40-129); Anion Gap 11 (5-15); BUN 17 mg/dL (4-19); BUN/Creat Ratio 15.9 RATIO (10-20); Calcium,Total 8.9 mg/dL (7.6-11.0); Carbon Dioxide 22.4 mmol/L (21.0-32.0); Chloride 106 mmol/L (98-108); Estimated Creatinine Clearance 47.50 ml/min (50-250); Globulin 2.5 g/dL (2.2-4.2); Glucose 158 mg/dL (70-99); Magnesium 2.0 mg/dL (1.5-2.2); Potassium 3.8 mmol/L (3.3-5.1)
[2025-04-24 23:39] VITALS: BP 193/98; PULSE 66; RESP 16; TEMP 36.9; O2SAT 99
[2025-04-24] MEDS: 0.9% Normal Saline (1000mL) 1,000 ML 70 ML IV (23:40)
[2025-04-24 23:52] VITALS: BMI 20.6
[2025-04-25] VITALS (15 sets, daily range): BP systolic 115–193; BP diastolic 60–98; PULSE 66–85; RESP 16; TEMP 36.8–37.2; O2SAT 93–99; BMI 20.6
[2025-04-25 06:21] LABS: Color, Urine Yellow (Yellow); Glucose, Dipstick Normal (Normal); Ketone-Dipstick 15 mg/dl (Negative); Leukocyte Esterase-Dipstick Negative /ul (Negative); Nitrite-Dipstick Negative (Negative); Occult Blood-Urine 250 /ul (Negative); Protein-Dipstick 30 mg/dl (Negative); Specific Gravity, Urine 1.020 (1.002-1.030); Urine Bilirubin Dipstick Negative (Negative)
[2025-04-25 06:55] LABS: Mucous, Urine 1+ /hpf (<or=2+); Red Blood Cells-Urine 10-25 SEEN /hpf (0-5); Squamous Epithelial Cells - UA 0-5 SEEN /hpf (0-5)
--- NOTE | 2025-04-25 09:02 | PN.HOSP_ITS ---
Reason for Visit
--- NOTE | 2025-04-25 09:02 | PCM.PN.HOSP ---
Reason for Visit Chief Complaint: Right Hip Pain after Fall. Subjective Subjective Patient is an 84-year-old gentleman who slipped and fell was working on his car. He subsequently developed right hip pain presented to the ED imaging studies obtained did show A mildly impacted intratrochanteric fracture of the proximal right femur is noted. No dislocation. Objective Data Objective Data Vital Signs: Vital Signs Temp Pulse Resp BP Pulse Ox O2 Del Method 99.0 F 78 16 128/65 H 96 Room Air 04/25/25 06:06 04/25/25 08:03 04/25/25 06:06 04/25/25 06:06 04/25/25 08:48 04/25/25 08:48 Oxygen Delivery Method Room Air Weight: 59.8 kg Body Mass Index (BMI) 20.6 Intake & Output: Intake and Output for Last 24 Hours 04/23/25 04/24/25 04/25/25 23:59 23:59 23:59 Intake Total 100 / 100 Output Total 200 / 200 Balance -100 / -100 Lab / Micro Data 04/24/25 22:50 04/24/25 22:50 Labs: Laboratory Results - last 24 hr 04/24/25 22:50: WBC 11.1 H, RBC 4.41 L, Hgb 12.9 L, Hct 37.6 L, MCV 85.3, MCH 29.3, MCHC 34.3, RDW Std Deviation 37.9, RDW Coeff of Julieta 12.2, Plt Count 208, MPV 9.2, Immature Gran % (Auto) 0.400, Neut % (Auto) 76.7 H, Lymph % (Auto) 15.1 L, Porter % (Auto) 6.9, Eos % (Auto) 0.5, Baso % (Auto) 0.4, Absolute Neuts (auto) 8.5 H, Absolute Lymphs (auto) 1.67, Nucleated RBC % 0, Sodium 140, Potassium 3.8, Chloride 106, Carbon Dioxide 22.4, Anion Gap 11, BUN 17, Creatinine 1.08, Estim Creat Clear Calc 47.50 L, Est GFR (MDRD) Non-Af 68, BUN/Creatinine Ratio 15.9, Glucose 158 H, Hemoglobin A1c 6.9 H, Calcium 8.9, Phosphorus 2.2 L, Magnesium 2.0, Total Bilirubin 0.51, AST 34, ALT 32, Alkaline Phosphatase 111, Total Protein 6.4, Albumin 3.9, Globulin 2.5, Albumin/Globulin Ratio 1.5, TSH 0.950, Blood Type A POSITIVE, Antibody Screen NEGATIVE 04/25/25 00:03: POC Glucose 156 H 04/25/25 06:05: Urine Color Yellow, Urine Clarity Clear, Urine pH 5.0, Ur Specific Bicknell 1.020, Urine Protein 30 H, Urine Glucose (UA) Normal, Urine Ketones 15 H, Urine Occult Blood 250 H, Urine Nitrite Negative, Urine Bilirubin Negative, Urine Urobilinogen Normal, Ur Leukocyte Esterase Negative, Urine RBC 10-25 SEEN, Urine WBC 0-5 SEEN, Ur Squamous Epith Cells 0-5 SEEN, Urine Bacteria RARE, Hyaline Casts 0-5 SEEN, Urine Mucus 1+ 04/25/25 06:11: POC Glucose 143 H Radiography Diagnostic Testing: Radiology Impression Hip/Pelvis X-Ray 04/24/25 18:43 IMPRESSION: As above. Reading Location: [id number] Brain CT 04/24/25 19:21 IMPRESSION: No acute traumatic findings. Chronic/degenerative changes as described. Reading Location: [facility] Cervical Spine CT 04/24/25 19:21 IMPRESSION: No acute traumatic findings. Chronic/degenerative changes as described. Reading Location: [facility] Chest CT 04/24/25 23:03 IMPRESSION: Coronary artery calcification (CAC) is present. No demonstrated pulmonary embolism or arterial dissection. Ectatic/aneurysmal ascending aorta measuring 4.2 cm, unchanged. Surgical changes of the aortic valve. Prior CABG. Mild cardiomegaly. Mild diffuse spondylosis. Small sliding hiatal hernia. Mild osteopenia. Bilateral basilar atelectatic pulmonary changes. Reading Location: [place] [id number] Physical Exam Narrative GENERAL: cooperative HEENT: Atraumatic; normocephalic EYES; Anicteric, Normal Conjunctiva NECK; supple, normal thyroid, RESPIRATORY: Diminished to auscultation CARDIOVASCULAR: Regular S1 S2, GI: soft, normoactive bowel sounds, : No Renal angle tenderness; EXTREMITIES: No edema, no clubbing, MUSCULOSKELETAL: no muscle wasting NEURO: Awake; no lateralizing signs. SKIN: No Rash PSYCH; Flat affect Assessment & Plan Assessment/Plan (1) Closed right hip fracture: QUALIFIERS: Encounter type: initial encounter Qualified Code(s): S72.001A - Fracture of unspecified part of neck of right femur, initial encounter for closed fracture (2) Fall: QUALIFIERS: Encounter type: initial encounter Qualified Code(s): W19.XXXA - Unspecified fall, initial encounter PLAN: Plan Patient is an 84-year-old gentleman who slipped and fell was working on his car. He subsequently developed right hip pain presented to the ED imaging studies obtained did show A mildly impacted intratrochanteric fracture of the proximal right femur is noted. No dislocation. 1. Fall with right hip fracture ? Imaging studies did show A mildly impacted intratrochanteric fracture of the proximal right femur is noted. No dislocation.. Patient admitted to a monitored bed management initiated with immobilization pain meds with consultation placed orthopedic surgery. Patient initial diagnostic evaluation including EKG and CBC and BMP reviewed. Case was also discussed with Dr. Lees with orthopedic surgery. Plan is for patient to proceed with surgery. Risks for perioperative morbidity/mortality remains moderate given patient history of coronary artery disease with previous CABG, history of ascending aortic aneurysm repair and pacemaker. Patient however denies any chest pain or shortness of breath with activity 2. Coronary artery disease ? Status post CABG 3. Valvular heart disease ? Status post bioprosthetic AVR with bovine material 4. History of thoracic aortic aneurysmal repair ? Performed at [facility] in 2023 remains stable 5. Status post left atrial appendage clipping 6. Diabetes mellitus type 2 ? Patient was on metformin held on admission placed on Accu-Cheks AC and at bedtime with sliding scale coverage 7. Sick sinus syndrome Status post pacemaker placement telemetry monitoring demonstrated paced rhythm 8. BPH with lower urinary obstructive symptoms - Patient treated with tamsulosin 9. Generalized osteoarthritis ? 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 11. DVT prophylaxis ? Bilateral SCDs for now with plans to initiate chemoprophylaxis following surgery Time spent in the patient's overall evaluation,decision-making process, review of diagnostic data, adjustment of management, discussion with other providers, nursing nursing and ancillary staff involved in patient's care documentation, 50 Minutes Charges/Coding Visit Charges Inpatient E&M: 61009 Subs Hosp L3
[2025-04-25] MEDS: Sodium Phosphate/Na Biphos 30 MMOL in 0.9% Normal Saline (250mL Bag) 250 ML 62.5 MMOL IV (09:52)
--- NOTE | 2025-04-25 10:15 | CASEMGMT ---
MARIA M SOLARES Assessment: Face to Face with pt for initial transition planning/care coordination assessment. MARIA M SOLARES introduced self and role at [facility], pt voices understanding and consents to assessment. Pt is A&O x4 and answers all questions appropriately at this time. Pt lying in bed in no distress with at bedside. Care providers, pharmacy, and demographics verified/updated. Admitting Dx: R hip fx after fall Strata Score: 2 PCP:Abbe Specialists:Kelly, cardio; Teetee, cardiac OR Preferred Pharmacy: [facility] Insurance: NI Prescription Benefit: yes LNOK: Concha Dominguezlecrubio, Living Arrangements: Pt lives with in a split level home with 1 step to enter and 5-6 steps in between each floor. Pt reports he is I in ADL and shared in IADLs with prior to surgery. Pt denies concerns at home. Transportation: Pt drives self and denies concerns with transportation. Pt also drives. DME:cane, BP cuff, hand rails in the BR HHC/SNF: Denies hx of Pt would like to go home after hospital stay. Pt seems very nervous about possibly needing a hip replacement. He states he may want to trf to another facility for a second opinion if this is what ortho recommends. Discussed that should pt need DME after OR and going home, verbal local in network providers, pt chose [facility]. Pt states no further concerns/needs. CM to follow. Advised pt to ask CM if any further questions/concerns/needs arise, voices understanding. Pt Goal:Home Plan: TBD pending surgery and therapy iqra post op Severiano FRANZ CM
--- NOTE | 2025-04-25 13:49 | PCM.PRE.AN2 ---
ASA Classification* ASA Classification ASA Classification: 3 Assessment & Plan Anesthesia* Anesthesia Assessment Anesthesia Assessment: Discussed sedation and/or anesthesia options, risks, benefits, and alternatives with patient/parents/legal guardian/POA. Questions invited. The patient/parents/legal guardian/POA seems to understand and agrees to proceed with anesthesia plan. Reviewed the physical assessment, medical history, allergy history and patient home medications list prior to surgery/procedure/anesthetic and documented any changes. Performed airway and anesthesia risk assessments. Anesthesia Type Anesthesia Type: General History Source History Obtained from:: Patient and Chart Anesthesia Focused Assessment* Temperature: 99 F Pulse Rate: 82 Blood Pressure: 119/66 Respiratory Rate: 16 Pulse Ox: 95 Oxygen Delivery Method: Room Air Airway Assessment Mouth opens: >3 cm Mallampati Score: IV Teeth Condition: Caps/Crowns (Patient has several crowns. They are all tight.) and Missing (Patient is missing a couple of molars. The rest are tight.) Neck Range of motion (ROM): Limited ROM (Somewhat Decreased) Labs Anesthesia Preop lab: CBC WBC, (4.4-11.0) 11.1 K/mm3 H 04/24/25, 22:50 RBC, (4.6-6.2) 4.41 M/mm3 L 04/24/25, 22:50 Hgb, (13.0-16.5) 12.9 g/dL L 04/24/25, 22:50 Hct, (40-54) 37.6 % L 04/24/25, 22:50 Plt Count, (150-450) 208 K/mm3 04/24/25, 22:50 CHEMISTRY Potassium, (3.3-5.1) 3.8 mmol/L 04/24/25, 22:50 Sodium, (133-145) 140 mmol/L 04/24/25, 22:50 Magnesium, (1.5-2.2) 2.0 mg/dL 04/24/25, 22:50 Phosphorus, (2.7-4.5) 2.2 mg/dL L 04/24/25, 22:50 BUN, (4-19) 17 mg/dL 04/24/25, 22:50 Creatinine, (0.70-1.20) 1.08 mg/dL 04/24/25, 22:50 Glucose, (70-99) 158 mg/dL H 04/24/25, 22:50 POC Glucose, (74-106) 150 mg/dL H Today, 11:30 TSH, (0.300-4.200) 0.950 uIU/mL 04/24/25, 22:50 COAG Pre-Assessment Diagnosis/Proposed Procedure Planned Operative Procedure(s): Open reduction internal fixation right hip. 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 When Was Last Pacemaker Check 2024 does not know month 04/24/25 23:50 QUESTION #4 FULL TEXT: You/Your Family Experience fever (hyperthermia) with Anesthesia Last Oral Intake Last Oral intake: Last Oral Intake NPO since 00:00 04/25/25 09:10 Meds taken in AM with sips of water? Meds patient instructed to take am of surgery PONV PONV - monument letterer: PONV - monument letterer Female HX of Motion Sickness HX of N/V After Surgery Non-Smoker Duration of Surgery greater than 60 minutes Number of Risk Factors PONV Score Height & Weight Height & Weight: Anesthesia: Height & Weight Height 5 ft 7 in 04/25/25 09:10 Weight: 59.8 kg 04/25/25 09:10 Body Mass Index (BMI) 20.6 04/25/25 09:10 Respiratory Assessment Respiratory Assessment - monument letterer: Respiratory Tract Infection Hx - monument letterer Hx Respiratory Tract Infection No 04/24/25 23:50 STOP Sleep Apnea STOP Sleep Apnea - monument letterer: STOP Sleep Apnea - monument letterer Hx Hypertension No 04/24/25 23:36 Hx Sleep Apnea No 04/24/25 23:36 CPAP No 04/24/25 23:36 BIPAP Do you snore loudly (louder Yes 04/24/25 23:36 than talking or can be heard Do you often feel tired/ No 04/24/25 23:36 fatigued/ sleepy during daytime? Has anyone observed you stop No 04/24/25 23:36 breathing during sleep? STOP Results Negative 04/24/25 23:36 QUESTION #5 FULL TEXT : Do you snore loudly (louder than talking or can be heard through closed doors)? Tobacco Use History Tobacco Use History - monument letterer: Tobacco Use History - monument letterer Tobacco Use Smoking Status Former smoker 04/24/25 23:36 Hx Tobacco Use No 04/24/25 23:36 Years Smoking Packs Smoked per Day Smoking Cessation Date was No - quit smoking greater 04/24/25 23:36 within the last 15 years than 15 years ago Hx Smoking Cessation Date Hx Smoking Cessation No 04/24/25 23:36 Counseling Hematologic Medial History Hematologic Hx - monument letterer: Hematologic Medical Hx - time checker Hx of Blood Transfusion No 04/24/25 23:36 Hx of Transfusion in last 3 No 04/24/25 23:36 Months Date of Last Transfusion (if within last 3 months) Ever experience any problems No 04/24/25 23:36 with transfusion(s)? Specify any problems Hx of Preganancy in last 3 No 04/24/25 23:36 Months Nurse Filling Out Transfusion DREDICK 04/24/25 23:36 & Questions: Date: 04/24/25 04/24/25 23:36 Time: 23:37 04/24/25 23:36 Patient unable to answer at this time (ie. confused, unrespo /Reproduction History /Reproductive History - monument letterer: /Reproductive Hx- monument letterer Hx Now No 04/24/25 23:50 Gestational Age (in weeks): EDC: Hx Hx Para Hx Section SAB No 04/24/25 23:50 Active Medications Active Medications: Current Medications Generic Name Dose Route Start Last Admin Trade Name Freq PRN Reason Stop Dose Admin Al Hydroxide/Mg Hydroxide 30 ml 04/24/25 22:31 Mag Hydrox/Al Hydrox/Simeth 30 Ml Udc PO Q6H PRN PRN Gastric Burning Glucagon 1 mg 04/24/25 22:31 Glucagon 1 Mg/Ml Syringe IM X1 PRN HYPOGLYCEMIA Protocol Hydralazine HCl 10 mg 04/25/25 00:26 Hydralazine 20 Mg/Ml Vial IV Q8H PRN PRN BLOOD PRESSURE Protocol Dextrose 250 mls @ 0 mls/hr 04/24/25 22:31 Dextrose 10%-Water IV .Q0M PRN HYPOGLYCEMIA Protocol As Directed Sodium Chloride 250 mls @ 15 mls/hr 04/24/25 23:27 IV .[id number] PRN Saline Flush Sodium Chloride 250 mls @ 15 mls/hr 04/24/25 23:27 IV .[id number] PRN Additional IVPB Infusion Sodium Phosphate 30 mmol/ 260 mls @ 62.5 mls/hr 04/25/25 10:00 04/25/25 09:52 Sodium Chloride IV 04/25/25 14:09 62.5 mls/hr X1 ONE Administration Cefazolin Sodium 2 gm/ Sodium 110 mls @ 200 mls/hr 04/25/25 13:32 Chloride IV 04/25/25 14:04 INTRAOP ONE Insulin Human Lispro 0 unit 04/25/25 00:00 04/25/25 12:32 Insulin Lispro 100 Unit/Ml Insuln.Pen SC Not Given Q6 NATHAN Protocol Ketorolac Tromethamine 15 mg 04/24/25 22:31 04/25/25 00:04 Ketorolac 15 Mg/Ml Vial IV 04/29/25 22:32 15 mg TID PRN PRN Administration Pain 1-5/10 or Fever Magnesium Chloride 128 mg 04/25/25 10:00 Magnesium Chloride 64 Mg Delay Rel.Tablet PO DAILY NATHAN Magnesium Hydroxide 30 ml 04/24/25 22:31 Magnesium Hydroxide 30 Ml Udc PO DAILY PRN PRN Constipation Melatonin 3 mg 04/24/25 22:31 Melatonin 3 Mg Tablet PO QHS PRN PRN INSOMNIA Morphine Sulfate 2 mg 04/24/25 22:36 Morphine 2 Mg/Ml Syringe IV Q4H PRN PRN Pain Score 6-10 Ondansetron HCl 4 mg 04/24/25 22:31 04/25/25 00:04 Ondansetron 4 Mg/2 Ml Vial IV 4 mg Q8H PRN PRN Administration NAUSEA/VOMITING Sodium Chloride 10 - 40 ml 04/24/25 23:27 0.9% Saline Lock 10 Ml Syringe IV UD PRN SALINE FLUSH Tamsulosin HCl 0.4 mg 04/25/25 10:00 Tamsulosin Hcl 0.4 Mg Capsule PO DAILY [facility] Medical History Thoracic ascending aortic aneurysm Pacemaker FH: CABG (coronary artery bypass surgery) BPH (benign prostatic hyperplasia) Diabetes Ascending aortic aneurysm Wears glasses Former smoker History of echocardiogram Cardiology follow-up encounter Squamous cell carcinoma Skin lesion of face History of skin cancer Osteoarthritis Home Medications ?Medication ?Instructions ?Recorded ?Last Taken ?Type multivitamin 1 ea PO DAILY supplement 04/29/17 Unknown History cholecalciferol (vitamin D3) 125 5,000 unit PO DAILY supplement 05/03/19 04/24/25 History mcg (5,000 unit) capsule coenzyme Q10 300 mg capsule 300 mg PO DAILY supplement 05/03/19 04/24/25 09:00 History zinc 1 tab PO DAILY supplement 05/08/22 04/24/25 09:00 History aspirin 81 mg tablet 81 mg PO DAILY blood thinner 04/24/25 04/24/25 09:00 History magnesium 250 mg tablet 250 mg PO DAILY supplement 04/24/25 04/24/25 09:00 History metformin 500 mg tablet 500 mg PO DAILY dm 04/24/25 Unknown History tamsulosin 0.4 mg capsule 0.4 mg PO DAILY bph 04/24/25 Unknown History Allergy/AdvReac Type Severity Reaction Status Date / Time No Known Allergies Allergy Verified 05/10/22 07:29 Family History Father No problems noted. Surgical History (Updated 04/25/25 @ 13:[address] Thuan Luna MD) S/P placement of cardiac pacemaker H/O aortic valve replacement H/O repair of dissecting aneurysm of ascending thoracic aorta S/P CABG x 1 History of tonsillectomy and adenoidectomy Status post Mohs surgery for squamous cell carcinoma in situ of skin History of surgical removal of skin lesion History of surgery on wrist History of colonoscopy Social History Smoking Status: Former smoker Review of Systems (Anesthesia) ROS Narrative System reviewed and no additional complaints, except as documented.
--- NOTE | 2025-04-25 14:18 | CONS.ORTHO ---
HPI Consult Data Date of Consult: 04/25/25 HPI Narrative HPI Narrative: SYED ZEE, is a 84 M who presents with right hip pain after a fall. Patient fell backwards and towards the right hip at ground-level yesterday and had immediate pain. He was brought to the emergency room and was found to have right hip intertrochanteric fracture. I was consulted for orthopedics. I saw the patient in preop this afternoon. Patient denies any pain in the left lower and bilateral upper extremities. He denies any head injuries. He has some occasional pain running down radiating down to the right lower extremity but denies any swelling or bruises throughout the extremity. His pain mainly localizes over the lateral aspect of the right hip. He mentions that he has had trouble with balance over the last 6 months. In this likely contributed to his fall. His significant cardiac comorbidities. 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 Serge Lees MD) Thoracic ascending aortic aneurysm Pacemaker FH: CABG (coronary artery bypass surgery) BPH (benign prostatic hyperplasia) Diabetes Ascending aortic aneurysm Wears glasses Former smoker History of echocardiogram Cardiology follow-up encounter Squamous cell carcinoma Skin lesion of face History of skin cancer Osteoarthritis Home Medications ?Medication ?Instructions ?Recorded ?Last Taken ?Type multivitamin 1 ea PO DAILY supplement 04/29/17 Unknown History cholecalciferol (vitamin D3) 125 5,000 unit PO DAILY supplement 05/03/19 04/24/25 History mcg (5,000 unit) capsule coenzyme Q10 300 mg capsule 300 mg PO DAILY supplement 05/03/19 04/24/25 09:00 History zinc 1 tab PO DAILY supplement 05/08/22 04/24/25 09:00 History aspirin 81 mg tablet 81 mg PO DAILY blood thinner 04/24/25 04/24/25 09:00 History magnesium 250 mg tablet 250 mg PO DAILY supplement 04/24/25 04/24/25 09:00 History metformin 500 mg tablet 500 mg PO DAILY dm 04/24/25 Unknown History tamsulosin 0.4 mg capsule 0.4 mg PO DAILY bph 04/24/25 Unknown History Allergy/AdvReac Type Severity Reaction Status Date / Time No Known Allergies Allergy Verified 05/10/22 07:29 Family History Father No problems noted. Surgical History (Updated 04/25/25 @ 13:[address] Thuan Luna MD) S/P placement of cardiac pacemaker H/O aortic valve replacement H/O repair of dissecting aneurysm of ascending thoracic aorta S/P CABG x 1 History of tonsillectomy and adenoidectomy Status post Mohs surgery for squamous cell carcinoma in situ of skin History of surgical removal of skin lesion History of surgery on wrist History of colonoscopy Social History Smoking Status: Former smoker Vital Signs Vital Signs Vital Signs: 04/24/25 18:26 04/24/25 18:36 04/24/25 20:25 Temperature 98.3 F Temperature Source Oral Pulse Rate 61 73 66 Respiratory Rate 16 18 15 Blood Pressure 182/99 H 171/106 H 169/87 H Blood Pressure Mean 126 127 114 Blood Pressure Source Blood Pressure Position Blood Pressure Location Pulse Ox 98 91 99 Oxygen Delivery Method Room Air Room Air Room Air 04/24/25 21:51 04/24/25 23:39 04/25/25 00:05 Temperature 98.6 F 98.4 F Temperature Source Oral Pulse Rate 77 66 Respiratory Rate 12 16 Blood Pressure 162/86 H 193/98 H Blood Pressure Mean 111 129 Blood Pressure Source Monitor Blood Pressure Position Semi-Fowlers Blood Pressure Location Right Arm Pulse Ox 100 99 99 Oxygen Delivery Method Room Air Room Air 04/25/25 00:42 04/25/25 02:03 04/25/25 06:06 Temperature 99.0 F Temperature Source Temporal Pulse Rate 66 75 Respiratory Rate 16 Blood Pressure 193/98 H 152/78 H 128/65 H Blood Pressure Mean 102 86 Blood Pressure Source Monitor Monitor Blood Pressure Position Supine Semi-Fowlers Blood Pressure Location Right Arm Right Arm Pulse Ox 99 Oxygen Delivery Method Room Air 04/25/25 08:03 04/25/25 08:48 04/25/25 09:04 Temperature 98.4 F Temperature Source Oral Pulse Rate 78 75 Respiratory Rate 16 Blood Pressure 139/78 H Blood Pressure Mean 98 Blood Pressure Source Monitor Blood Pressure Position Semi-Fowlers Blood Pressure Location Right Arm Pulse Ox 96 97 Oxygen Delivery Method Room Air Room Air 04/25/25 12:57 04/25/25 13:05 04/25/25 14:03 Temperature 99 F 99 F Temperature Source Oral Pulse Rate 79 82 82 Respiratory Rate 16 16 Blood Pressure 119/66 119/66 Blood Pressure Mean 83 Blood Pressure Source Monitor Blood Pressure Position Semi-Fowlers Blood Pressure Location Right Arm Pulse Ox 95 95 Oxygen Delivery Method Room Air Room Air Weight Weight: 131 lb 13.383 oz Body Mass Index (BMI) 20.6 Physical Exam Narrative Exam of the right lower extremity shows pain around the lateral aspect of the hip with tenderness. No tenderness in the distal third of the femur, knee, leg foot and ankle. No tenderness throughout left lower and bilateral upper extremities with full range of painless movement. Distal neurovascular exam of the right lower extremity is intact. Lab / Micro Data 04/24/25 22:50 04/24/25 22:50 Labs: Laboratory Results - last 24 hr 04/24/25 22:50: WBC 11.1 H, RBC 4.41 L, Hgb 12.9 L, Hct 37.6 L, MCV 85.3, MCH 29.3, MCHC 34.3, RDW Std Deviation 37.9, RDW Coeff of Julieta 12.2, Plt Count 208, MPV 9.2, Immature Gran % (Auto) 0.400, Neut % (Auto) 76.7 H, Lymph % (Auto) 15.1 L, Luna % (Auto) 6.9, Eos % (Auto) 0.5, Baso % (Auto) 0.4, Absolute Neuts (auto) 8.5 H, Absolute Lymphs (auto) 1.67, Nucleated RBC % 0, Sodium 140, Potassium 3.8, Chloride 106, Carbon Dioxide 22.4, Anion Gap 11, BUN 17, Creatinine 1.08, Estim Creat Clear Calc 47.50 L, Est GFR (MDRD) Non-Af 68, BUN/Creatinine Ratio 15.9, Glucose 158 H, Hemoglobin A1c 6.9 H, Calcium 8.9, Phosphorus 2.2 L, Magnesium 2.0, Total Bilirubin 0.51, AST 34, ALT 32, Alkaline Phosphatase 111, Total Protein 6.4, Albumin 3.9, Globulin 2.5, Albumin/Globulin Ratio 1.5, TSH 0.950, Blood Type A POSITIVE, Antibody Screen NEGATIVE 04/25/25 00:03: POC Glucose 156 H 04/25/25 06:05: Urine Color Yellow, Urine Clarity Clear, Urine pH 5.0, Ur Specific [place] 1.020, Urine Protein 30 H, Urine Glucose (UA) Normal, Urine Ketones 15 H, Urine Occult Blood 250 H, Urine Nitrite Negative, Urine Bilirubin Negative, Urine Urobilinogen Normal, Ur Leukocyte Esterase Negative, Urine RBC 10-25 SEEN, Urine WBC 0-5 SEEN, Ur Squamous Epith Cells 0-5 SEEN, Urine Bacteria RARE, Hyaline Casts 0-5 SEEN, Urine Mucus 1+ 04/25/25 06:11: POC Glucose 143 H 04/25/25 11:30: POC Glucose 150 H Imaging Radiology Impression Hip/Pelvis X-Ray 04/24/25 18:43 IMPRESSION: As above. Reading Location: [id number] Brain CT 04/24/25 19:21 IMPRESSION: No acute traumatic findings. Chronic/degenerative changes as described. Reading Location: [facility] Cervical Spine CT 04/24/25 19:21 IMPRESSION: No acute traumatic findings. Chronic/degenerative changes as described. Reading Location: [facility] Chest CT 04/24/25 23:03 IMPRESSION: Coronary artery calcification (CAC) is present. No demonstrated pulmonary embolism or arterial dissection. Ectatic/aneurysmal ascending aorta measuring 4.2 cm, unchanged. Surgical changes of the aortic valve. Prior CABG. Mild cardiomegaly. Mild diffuse spondylosis. Small sliding hiatal hernia. Mild osteopenia. Bilateral basilar atelectatic pulmonary changes. Reading Location: [place] [id number] Assessment & Plan Assessment/Plan (1) Fracture, intertrochanteric, right femur: QUALIFIERS: Encounter type: initial encounter Fracture type: closed Fracture alignment: displaced Qualified Code(s): S72.141A - Displaced intertrochanteric fracture of right femur, initial encounter for closed fracture PLAN: Plan I reviewed the x-rays of the right hip done in the ER last night. These show displaced right hip intertrochanteric femur fracture. No other injuries identified through imaging. I explained the imaging findings in detail. Explained to the patient that he has a right intertrochanter femur fracture which is typically treated with surgery to allow early weightbearing and ambulation, and reduce complications of recumbency. I recommend right hip ORIF with gamma nailing. All risk benefits and alternatives were discussed in detail with the risks include but are not limited to infection, bleeding, hematoma formation, injury to nerves and vessels, need for further surgery, limb length discrepancy, need for hip replacement in the future, malunion, nonunion, mariah-implant fracture, DVT, pulm embolism, pneumonia, atelectasis, cardiopulmonary event, . Patient understands agrees to proceed with surgery. Consent was signed. Answered all questions. Charges/Coding Visit Charges Inpatient E&M: 30336 Init Hosp L3
--- NOTE | 2025-04-25 15:00 | SUR.PREOP ---
surgery canceled for 04/25 and rescheduled for 04/26 d/t instruments- ms3 charge nurse called and given update pt and pt's family aware and gift certificate given to pt's family
[2025-04-25] MEDS: Magnesium Chloride 64 MG Delay Rel.Tablet 128 MG PO (16:13)
[2025-04-25] MEDS: 0.9% Saline Lock 10 ML Syringe IV (21:52)
[2025-04-26] VITALS (20 sets, daily range): BP systolic 144–182; BP diastolic 73–98; PULSE 73–95; RESP 16–18; TEMP 36.7–37.4; O2SAT 93–99; BMI 21.3
[2025-04-26 04:09] LABS: Hematocrit 32.2 % (40-54); Hemoglobin 11.2 g/dL (13.0-16.5); Immature Granulocytes Count 0.020 X10^3/uL (0.0-0.0); Mean Corp Hgb Conc 34.8 g/dL (32-36); Mean Corpuscular Volume 85.2 fL (80-94); Mean Platelet Vol. 9.2 fl (6.2-12.0); NRBC Flagged by Analyzer 0 % (0-5); Platelet Count 179 K/mm3 (150-450); RBC Distribution Width CV 12.4 % (11.6-14.6); RBC Distribution Width SD 38.0 fl (35.1-43.9); Red Blood Count 3.78 M/mm3 (4.6-6.2); White Blood Count 8.6 K/mm3 (4.4-11.0)
[2025-04-26 04:33] LABS: Anion Gap 9 (5-15); BUN 15 mg/dL (4-19); BUN/Creat Ratio 14.6 RATIO (10-20); Calcium,Total 8.3 mg/dL (7.6-11.0); Carbon Dioxide 21.5 mmol/L (21.0-32.0); Chloride 110 mmol/L (98-108); Estimated Creatinine Clearance 46.87 ml/min (50-250); Glucose 163 mg/dL (70-99); Magnesium 2.1 mg/dL (1.5-2.2); Potassium 3.7 mmol/L (3.3-5.1)
--- NOTE | 2025-04-26 07:19 | PN.HOSP_ITS ---
Reason for Visit
--- NOTE | 2025-04-26 07:19 | PCM.PN.HOSP ---
Reason for Visit Chief Complaint: Right Hip Pain after Fall. Subjective Subjective Patient surgery was postponed to 04/26/2025 after his procedure the day prior was canceled due to issues with the sterilization equipment. Objective Data Objective Data Vital Signs: Vital Signs Temp Pulse Resp BP Pulse Ox O2 Del Method 98.7 F 75 16 150/73 H 99 Room Air 04/26/25 06:48 04/26/25 06:48 04/26/25 06:48 04/26/25 06:48 04/26/25 06:48 04/26/25 06:48 Oxygen Delivery Method Room Air Weight: 61.7 kg Body Mass Index (BMI) 21.3 Intake & Output: Intake and Output for Last 24 Hours 04/24/25 04/25/25 04/26/25 23:59 23:59 23:59 Intake Total 2009 Output Total 400 / 400 300 / 300 Balance 1610 / 1610 -300 / -300 Lab / Micro Data 04/26/25 03:57 04/26/25 03:57 Labs: Laboratory Results - last 24 hr 04/25/25 11:30: POC Glucose 150 H 04/25/25 16:06: POC Glucose 219 H 04/25/25 21:50: POC Glucose 235 H 04/26/25 03:57: WBC 8.6, RBC 3.78 L, Hgb 11.2 L, Hct 32.2 L, MCV 85.2, MCH 29.6, MCHC 34.8, RDW Std Deviation 38.0, RDW Coeff of Julieta 12.4, Plt Count 179, MPV 9.2, Immature Gran % (Auto) 0.200, Neut % (Auto) 70.0, Lymph % (Auto) 14.9 L, [place] % (Auto) 12.3 H, Eos % (Auto) 2.2, Baso % (Auto) 0.4, Absolute Neuts (auto) 6.0, Absolute Lymphs (auto) 1.28, Nucleated RBC % 0, Sodium 141, Potassium 3.7, Chloride 110 H, Carbon Dioxide 21.5, Anion Gap 9, BUN 15, Creatinine 1.01, Estim Creat Clear Calc 46.87 L, Est GFR (MDRD) Non-Af 74, BUN/Creatinine Ratio 14.6, Glucose 163 H, Calcium 8.3, Phosphorus 3.0, Magnesium 2.1 04/26/25 06:45: POC Glucose 148 H Physical Exam Narrative GENERAL: cooperative HEENT: Atraumatic; normocephalic EYES; Anicteric, Normal Conjunctiva NECK; supple, normal thyroid, RESPIRATORY: Diminished to auscultation CARDIOVASCULAR: Regular S1 S2, GI: soft, normoactive bowel sounds, : No Renal angle tenderness; EXTREMITIES: No edema, no clubbing, MUSCULOSKELETAL: no muscle wasting NEURO: Awake; no lateralizing signs. SKIN: No Rash PSYCH; Flat affect Assessment & Plan Assessment/Plan (1) Closed right hip fracture: QUALIFIERS: Encounter type: initial encounter Qualified Code(s): S72.001A - Fracture of unspecified part of neck of right femur, initial encounter for closed fracture (2) Fall: QUALIFIERS: Encounter type: initial encounter Qualified Code(s): W19.XXXA - Unspecified fall, initial encounter PLAN: Plan Patient is an 84-year-old gentleman who slipped and fell was working on his car. He subsequently developed right hip pain presented to the ED imaging studies obtained did show A mildly impacted intratrochanteric fracture of the proximal right femur is noted. No dislocation. 1. Fall with right hip fracture ? Imaging studies did show A mildly impacted intratrochanteric fracture of the proximal right femur is noted. No dislocation.. Patient admitted to a monitored bed management initiated with immobilization pain meds with consultation placed orthopedic surgery. Patient initial diagnostic evaluation including EKG and CBC and BMP reviewed. Case was also discussed with Dr. Lees with orthopedic surgery. Plan is for patient to proceed with surgery. Risks for perioperative morbidity/mortality remains moderate given patient history of coronary artery disease with previous CABG, history of ascending aortic aneurysm repair and pacemaker. Patient however denies any chest pain or shortness of breath with activity ? 04/26/2025;Patient surgery was postponed to 04/26/2025 after his procedure the day prior was canceled due to issues with the sterilization equipment. 2. Coronary artery disease ? Status post CABG 3. Valvular heart disease ? Status post bioprosthetic AVR with bovine material 4. History of thoracic aortic aneurysmal repair ? Performed at [facility] in 2023 remains stable 5. Status post left atrial appendage clipping 6. Diabetes mellitus type 2 ? Patient was on metformin held on admission placed on Accu-Cheks AC and at bedtime with sliding scale coverage 7. Sick sinus syndrome Status post pacemaker placement telemetry monitoring demonstrated paced rhythm 8. BPH with lower urinary obstructive symptoms - Patient treated with tamsulosin 9. Generalized osteoarthritis ? 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 11. DVT prophylaxis ? Bilateral SCDs for now with plans to initiate chemoprophylaxis following surgery Time spent in the patient's overall evaluation,decision-making process, review of diagnostic data, adjustment of management, discussion with other providers, nursing nursing and ancillary staff involved in patient's care documentation, 38 minutes Charges/Coding Visit Charges Inpatient E&M: 69640 Subs Hosp L2
[2025-04-26] MEDS: 0.9% Saline Lock 10 ML Syringe IV (08:22)
[2025-04-26] MEDS: Lactated Ringers 1,000 ML 15 ML IV (11:42)
--- NOTE | 2025-04-26 11:49 | PRE.ANES_ITS ---
Assessment & Plan Anesthesia*
--- NOTE | 2025-04-26 11:49 | PCM.PRE.AN2 ---
ASA Classification* ASA Classification ASA Classification: 3 and E Assessment & Plan Anesthesia* Anesthesia Assessment Anesthesia Assessment: Discussed sedation and/or anesthesia options, risks, benefits, and alternatives with patient/parents/legal guardian/POA. Questions invited. The patient/parents/legal guardian/POA seems to understand and agrees to proceed with anesthesia plan. Reviewed the physical assessment, medical history, allergy history and patient home medications list prior to surgery/procedure/anesthetic and documented any changes. Performed airway and anesthesia risk assessments. Anesthesia Type Anesthesia Type: General History Source History Obtained from:: Patient and Chart Anesthesia Focused Assessment* Temperature: 99.4 F Pulse Rate: 80 Blood Pressure: 161/81 Respiratory Rate: 16 Pulse Ox: 95 Oxygen Delivery Method: Room Air Airway Assessment Mouth opens: >3 cm Mallampati Score: II Teeth Condition: Intact Neck Range of motion (ROM): Limited ROM Labs Anesthesia Preop lab: CBC WBC, (4.4-11.0) 8.6 K/mm3 Today, 03:57 RBC, (4.6-6.2) 3.78 M/mm3 L Today, 03:57 Hgb, (13.0-16.5) 11.2 g/dL L Today, 03:57 Hct, (40-54) 32.2 % L Today, 03:57 Plt Count, (150-450) 179 K/mm3 Today, 03:57 CHEMISTRY Potassium, (3.3-5.1) 3.7 mmol/L Today, 03:57 Sodium, (133-145) 141 mmol/L Today, 03:57 Magnesium, (1.5-2.2) 2.1 mg/dL Today, 03:57 Phosphorus, (2.7-4.5) 3.0 mg/dL Today, 03:57 BUN, (4-19) 15 mg/dL Today, 03:57 Creatinine, (0.70-1.20) 1.01 mg/dL Today, 03:57 Glucose, (70-99) 163 mg/dL H Today, 03:57 POC Glucose, (74-106) 148 mg/dL H Today, 06:45 TSH, (0.300-4.200) 0.950 uIU/mL 04/24/25, 22:50 COAG Pre-Assessment Diagnosis/Proposed Procedure Planned Operative Procedure(s): Open reduction internal fixation right hip. Anesthesia History Anesthesia History - staff development manager: Anesthesia History - staff development manager Hx Hospitalization No 05/08/22 09:55 Any Problems With Anesthesia No 04/25/25 23:51 Cholinesterase deficiency No 04/25/25 23:51 You/Your Family Experience No 04/25/25 23:51 fever (hyperthermia) with Relationship Recent Exposure to Contagious No 04/25/25 23:51 Disease Does patient have nerve No 04/25/25 23:51 stimulator Patient instructed to have No 04/25/25 23:51 device shut off --Does patient have Pacemaker Yes 04/26/25 08:34 or ICD? When Was Last Pacemaker Check 2024 does not know month 04/25/25 23:51 QUESTION #4 FULL TEXT: You/Your Family Experience fever (hyperthermia) with Anesthesia Last Oral Intake Last Oral intake: Last Oral Intake NPO since 00:00 04/26/25 08:34 Meds taken in AM with sips of water? Meds patient instructed to take am of surgery PONV PONV - staff development manager: PONV - staff development manager Female HX of Motion Sickness HX of N/V After Surgery Non-Smoker Duration of Surgery greater than 60 minutes Number of Risk Factors PONV Score Height & Weight Height & Weight: Anesthesia: Height & Weight Height 5 ft 7 in 04/26/25 08:34 Weight: 61.7 kg 04/26/25 08:34 Body Mass Index (BMI) 21.3 04/26/25 08:34 Respiratory Assessment Respiratory Assessment - staff development manager: Respiratory Tract Infection Hx - staff development manager Hx Respiratory Tract Infection No 04/25/25 23:51 STOP Sleep Apnea STOP Sleep Apnea - staff development manager: STOP Sleep Apnea - staff development manager Hx Hypertension No 04/24/25 23:36 Hx Sleep Apnea No 04/24/25 23:36 CPAP No 04/24/25 23:36 BIPAP Do you snore loudly (louder Yes 04/24/25 23:36 than talking or can be heard Do you often feel tired/ No 04/24/25 23:36 fatigued/ sleepy during daytime? Has anyone observed you stop No 04/24/25 23:36 breathing during sleep? STOP Results Negative 04/24/25 23:36 QUESTION #5 FULL TEXT : Do you snore loudly (louder than talking or can be heard through closed doors)? Tobacco Use History Tobacco Use History - staff development manager: Tobacco Use History - staff development manager Tobacco Use Smoking Status Former smoker 04/24/25 23:36 Hx Tobacco Use No 04/24/25 23:36 Years Smoking Packs Smoked per Day Smoking Cessation Date was No - quit smoking greater 04/24/25 23:36 within the last 15 years than 15 years ago Hx Smoking Cessation Date Hx Smoking Cessation No 04/24/25 23:36 Counseling Hematologic Medial History Hematologic Hx - staff development manager: Hematologic Medical Hx - life assurance representative Hx of Blood Transfusion No 04/24/25 23:36 Hx of Transfusion in last 3 No 04/24/25 23:36 Months Date of Last Transfusion (if within last 3 months) Ever experience any problems No 04/24/25 23:36 with transfusion(s)? Specify any problems Hx of Preganancy in last 3 No 04/24/25 23:36 Months Nurse Filling Out Transfusion DREDICK 04/24/25 23:36 & Questions: Date: 04/24/25 04/24/25 23:36 Time: 23:37 04/24/25 23:36 Patient unable to answer at this time (ie. confused, unrespo /Reproduction History /Reproductive History - staff development manager: /Reproductive Hx- staff development manager Hx Now No 04/25/25 23:51 Gestational Age (in weeks): EDC: Hx Hx Para Hx Section SAB No 04/25/25 23:51 Active Medications Active Medications: Current Medications Generic Name Dose Route Start Last Admin Trade Name Freq PRN Reason Stop Dose Admin Al Hydroxide/Mg Hydroxide 30 ml 04/24/25 22:31 Mag Hydrox/Al Hydrox/Simeth 30 Ml Udc PO Q6H PRN PRN Gastric Burning Glucagon 1 mg 04/24/25 22:31 Glucagon 1 Mg/Ml Syringe IM X1 PRN HYPOGLYCEMIA Protocol Hydralazine HCl 10 mg 04/25/25 00:26 Hydralazine 20 Mg/Ml Vial IV Q8H PRN PRN BLOOD PRESSURE Protocol Dextrose 250 mls @ 0 mls/hr 04/24/25 22:31 Dextrose 10%-Water IV .Q0M PRN HYPOGLYCEMIA Protocol As Directed Sodium Chloride 250 mls @ 15 mls/hr 04/24/25 23:27 IV .[id number] PRN Saline Flush Sodium Chloride 250 mls @ 15 mls/hr 04/24/25 23:27 IV .[id number] PRN Additional IVPB Infusion Lactated Ringer's 1,000 mls @ 15 mls/hr 04/26/25 11:45 04/26/25 11:42 IV 15 mls/hr .Q48H NATHAN Administration Insulin Human Lispro 0 unit 04/25/25 00:00 04/26/25 07:02 Insulin Lispro 100 Unit/Ml Insuln.Pen SC Not Given Q6 [facility] Protocol Ketorolac Tromethamine 15 mg 04/24/25 22:31 04/25/25 21:51 Ketorolac 15 Mg/Ml Vial IV 04/29/25 22:32 15 mg TID PRN PRN Administration Pain 1-5/10 or Fever Magnesium Chloride 128 mg 04/25/25 10:00 04/25/25 16:13 Magnesium Chloride 64 Mg Delay Rel.Tablet PO 128 mg DAILY NATHAN Administration Magnesium Hydroxide 30 ml 04/24/25 22:31 Magnesium Hydroxide 30 Ml Udc PO DAILY PRN PRN Constipation Melatonin 3 mg 04/24/25 22:31 Melatonin 3 Mg Tablet PO QHS PRN PRN INSOMNIA Morphine Sulfate 2 mg 04/24/25 22:36 Morphine 2 Mg/Ml Syringe IV Q4H PRN PRN Pain Score 6-10 Ondansetron HCl 4 mg 04/24/25 22:31 04/25/25 00:04 Ondansetron 4 Mg/2 Ml Vial IV 4 mg Q8H PRN PRN Administration NAUSEA/VOMITING Sodium Chloride 10 - 40 ml 04/24/25 23:27 04/26/25 08:22 0.9% Saline Lock 10 Ml Syringe IV 10 ml UD PRN Administration SALINE FLUSH Tamsulosin HCl 0.4 mg 04/25/25 10:00 04/25/25 16:13 Tamsulosin Hcl 0.4 Mg Capsule PO 0.4 mg DAILY NATHAN Administration PFSH Medical History Thoracic ascending aortic aneurysm Pacemaker FH: CABG (coronary artery bypass surgery) BPH (benign prostatic hyperplasia) Diabetes Ascending aortic aneurysm Wears glasses Former smoker History of echocardiogram Cardiology follow-up encounter Squamous cell carcinoma Skin lesion of face History of skin cancer Osteoarthritis Home Medications ?Medication ?Instructions ?Recorded ?Last Taken ?Type multivitamin 1 ea PO DAILY supplement 04/29/17 Unknown History cholecalciferol (vitamin D3) 125 5,000 unit PO DAILY supplement 05/03/19 04/24/25 History mcg (5,000 unit) capsule coenzyme Q10 300 mg capsule 300 mg PO DAILY supplement 05/03/19 04/24/25 09:00 History zinc 1 tab PO DAILY supplement 05/08/22 04/24/25 09:00 History aspirin 81 mg tablet 81 mg PO DAILY blood thinner 04/24/25 04/24/25 09:00 History magnesium 250 mg tablet 250 mg PO DAILY supplement 04/24/25 04/24/25 09:00 History metformin 500 mg tablet 500 mg PO DAILY dm 04/24/25 Unknown History tamsulosin 0.4 mg capsule 0.4 mg PO DAILY bph 04/24/25 Unknown History Allergy/AdvReac Type Severity Reaction Status Date / Time No Known Allergies Allergy Verified 05/10/22 07:29 Family History Father No problems noted. Surgical History S/P placement of cardiac pacemaker H/O aortic valve replacement H/O repair of dissecting aneurysm of ascending thoracic aorta S/P CABG x 1 History of tonsillectomy and adenoidectomy Status post Mohs surgery for squamous cell carcinoma in situ of skin History of surgical removal of skin lesion History of surgery on wrist History of colonoscopy Social History Smoking Status: Former smoker Review of Systems (Anesthesia) ROS Narrative System reviewed and no additional complaints, except as documented.
--- NOTE | 2025-04-26 11:58 | PCM.PN.ORT ---
Subjective Subjective Patient seen in preop today. Surgery was canceled yesterday because of equipment sterilization issues. Patient is NPO. Denies any changes in symptoms. Continues to have right hip pain. Occasional radicular pain down to the right lower extremity. Objective Data Objective Data Vital Signs: Vital Signs Temp Pulse Resp BP Pulse Ox O2 Del Method 99.4 F H 80 16 161/81 H 95 Room Air 04/26/25 11:51 04/26/25 11:51 04/26/25 11:51 04/26/25 11:51 04/26/25 11:51 04/26/25 11:51 Oxygen Delivery Method Room Air Weight: 136 lb 0.403 oz Body Mass Index (BMI) 21.3 Intake & Output: Intake and Output for Last 24 Hours 04/24/25 04/25/25 04/26/25 23:59 23:59 23:59 Intake Total 2009 Output Total 400 / 400 300 / 300 Balance 1610 / 1610 -300 / -300 Lab / Micro Data 04/26/25 03:57 04/26/25 03:57 Labs: Laboratory Results - last 24 hr 04/25/25 16:06: POC Glucose 219 H 04/25/25 21:50: POC Glucose 235 H 04/26/25 03:57: WBC 8.6, RBC 3.78 L, Hgb 11.2 L, Hct 32.2 L, MCV 85.2, MCH 29.6, MCHC 34.8, RDW Std Deviation 38.0, RDW Coeff of Julieta 12.4, Plt Count 179, MPV 9.2, Immature Gran % (Auto) 0.200, Neut % (Auto) 70.0, Lymph % (Auto) 14.9 L, [place] % (Auto) 12.3 H, Eos % (Auto) 2.2, Baso % (Auto) 0.4, Absolute Neuts (auto) 6.0, Absolute Lymphs (auto) 1.28, Nucleated RBC % 0, Sodium 141, Potassium 3.7, Chloride 110 H, Carbon Dioxide 21.5, Anion Gap 9, BUN 15, Creatinine 1.01, Estim Creat Clear Calc 46.87 L, Est GFR (MDRD) Non-Af 74, BUN/Creatinine Ratio 14.6, Glucose 163 H, Calcium 8.3, Phosphorus 3.0, Magnesium 2.1 04/26/25 06:45: POC Glucose 148 H Physical Exam Narrative Exam of the right lower extremity shows pain around the lateral aspect of the hip with tenderness. No tenderness in the distal third of the femur, knee, leg foot and ankle. No tenderness throughout left lower and bilateral upper extremities with full range of painless movement. Distal neurovascular exam of the right lower extremity is intact. Assessment & Plan Assessment/Plan (1) Fracture, intertrochanteric, right femur: QUALIFIERS: Encounter type: initial encounter Fracture type: closed Fracture alignment: displaced Qualified Code(s): S72.141A - Displaced intertrochanteric fracture of right femur, initial encounter for closed fracture PLAN: Plan Again reviewed the x-rays of the right hip. Again explained the imaging findings in detail. Explained to the patient that he has a right intertrochanter femur fracture which is typically treated with surgery to allow early weightbearing and ambulation, and reduce complications of recumbency. I recommend right hip ORIF with gamma nailing. All risk benefits and alternatives were discussed in detail with the risks include but are not limited to infection, bleeding, hematoma formation, injury to nerves and vessels, need for further surgery, limb length discrepancy, need for hip replacement in the future, malunion, nonunion, mariah-implant fracture, DVT, pulm embolism, pneumonia, atelectasis, cardiopulmonary event, . Patient understands agrees to proceed with surgery. Consent was signed. Answered all questions. Charges/Coding Visit Charges Inpatient E&M: 28817 Subs Hosp L1
--- NOTE | 2025-04-26 12:04 | CASEMGMT ---
Addendum entered by Isabel Domingo 04/26/25 16:13: Social Work- SW saw pt leaving with a woman reported to be a family friend. The family friend reports that pt is having a sleepover at the friend's house tonight. SW remains available to follow. ALEJANDRA Agudelo Original Note: Social Work- SW met with pt and pt to discuss concerns regarding pt dementia and her safety while pt has surgery and recovers. Pt was taken home last night by friend Catarina, but attempted to drive to the hospital later in the evening and got lost on the way. Pt reports that his called him and he had to call police to find her and escort her to the hospital. After pt was brought to the room, but at some point during the night, pt was reported by the charge nurse to be found on another floor of the hospital wandering. Pt was returned to pt room and the unit locked down to prevent pt from wandering off the floor. SW encouraged pt that because there is not a definite discharge timeline and to allow pt to focus on rest and recovery following surgery, SW would like to collaboratively problem solve how to keep pt safe in a location elsewhere than the hospital. SW guided pt through discussion on respite placement, admission through ED, or having friends/family stay with pt . Pt reports that if he needs rehab, he would like pt to be placed with him. Pt denied ED admission for pt or there being anyone to stay with pt at home. Pt reports he will have stay in his room. SW also expressed concern that pt is pt only contact. Pt reports she's fine. Pt, after much discussion, provided dtr Zahida's name and contact. Zahida is a PA that lives in [place]. Her contact is: [phone]. Pt reported that he did not want to discuss the plans for his any further prior to surgery. SW offered to follow up after discussion with SW supervisor testing. GISEL collaborated with SW supervisor testing. SW was informed by nursing supervisor testing that pt would need to leave the hospital after supper and would not be permitted to stay overnight tonight due to safety concerns. SW met with pt, pt , and pt neighbor Catarina to discuss. SW reminded pt of the various options to keep pt safe including ED admission, respite, or having a friend or family stay with her. Pt instructed to stay home and reported to SW that pt will just go home then. SW expressed concern because pt was calling pt father and reporting that she and her Jose A would take pt home to care for him. Pt repeatedly pointed out to pt throughout the conversation that he was her .Pt reports that pt will be fine. Pt friend Catarina offered to take pt home so that her car stays at the hospital and there is no opportunity to try to drive at night. Pt told Catarina that pt may need the car and he wanted her to have it. Catarina offered to follow pt home tonight and reports that she will stay with pt during the day today. Pt reported to SW that he was angry and wanted to speak with nursing supervisor testing. SW informed charge nurse of request, as nursing supervisor testing had already left the floor. SW again consulted with SW supervisor testing. SW called [facility] and spoke with Stefani. Stefani reports that there are no programs for emergency respite placement or round-clock care. Stefani took pt name, but reports that there are no known resources to assist and recommended calling pt dtr. GISEL called pt dtr Zahida to update on pt status and concerns regarding pt safety. Zahida reports that pt already called her, angry that pt could not stay at the hospital. Zahida reports that she and her brother knew of pt fall and surgery, but pt was adamant that the kids not come. Zahida reports that father is challenging and reports that he hides information from everyone. Zahida reports that even the neighbors and pt friends don't know that pt has dementia because pt hides how bad things are- they're barely able to function. Zahida reports that pt tells the kids parts of stories, but never the whole story. Zahida reports that she had dental surgery and cannot fly. Zahida reports that she will talk with pt son and see if he would be available to fly- Zahida reports she feels it would not be until tomorrow. GISEL shared that [facility] was unable to offer any assistance. SW offered that pt could private pay help if there is no family/friends, that pt could be admitted for respite placement through ED, and encouraged that pt would otherwise need assistance for an undetermined amount of time while pt recovered. Zahida reports that she believes that she is pt ALEYDA and would try to get the documents. Zahida reports that once she locates the documents, she will send them to SW, as she feels that she would like pt admitted through ED. Zahida will follow up with GISEL. ALEJANDRA Agudelo
[2025-04-26] MEDS: Cefazolin 1 GM/5 ML Vial 2 GM IV (12:26)
[2025-04-26] MEDS: Cefazolin 2 GM in 0.9% Normal Saline (100mL Bag) 100 ML IV (12:26)
[2025-04-26] MEDS: Lactated Ringers 500 ML IV (12:26)
[2025-04-26] MEDS: Lidocaine 1% (5 ml sdv) 5 ML Vial IV (12:34)
--- NOTE | 2025-04-26 13:00 | RAD_ITS ---
PROCEDURE: RAD/Hip Min 2 Views (Portable)
[2025-04-26] MEDS: fentaNYL 100 MCG/2 ML Ampul IV (13:06)
--- NOTE | 2025-04-26 13:50 | OP.PCM_ITS ---
Procedures Musculoskeletal
--- NOTE | 2025-04-26 13:50 | PCM.OPRPT ---
Procedures Musculoskeletal [id number]: Other Procedure See Report Operative Report (Standard) Operative Information Date of Procedure: 04/26/25 Pre-Operative Diagnosis: Right intertrochanteric femur fracture, displaced Post-Operative Diagnosis: Same Surgery/Procedure Performed: Open reduction internal fixation, cephalomedullary nailing with gamma nail, right intertrochanteric femur fracture legal collector: Yes Steam Conditioning Operator: Tuyet Miranda Tasks completed by preschool assistant director: Closing, Removing tissue, Implanting device and Retracting Type of Anesthesia: General RN Documented Start/Stop Times: Operation Date: 04/26/25 12:30 Case Time Into Pre-Op 04/26/25 11:32 Anesthesia Start 04/26/25 12:26 Into Room 04/26/25 12:26 Procedure Start 04/26/25 12:58 Out of Pre-Op Procedure Start Time: 12:58 Procedure Stop Time: 13:55 Select all DRAINS/GRAFTS/IMPLANTS that apply: Implanted device Implanted device details: Joe gamma 4 short nail Estimated Blood Loss: 50 cc Specimen collected: No Description of surgery: Operative Report Pre-operative Diagnosis: Right intertrochanteric Femur Fracture, displaced Post-operative Diagnosis: Same Procedure(s) Performed: Right femur Cephalmedullary Nailing CPT 89194 Surgeon: Dr. Serge Lees MD Independent Freight Agent: None Estimated Blood Loss: 50 ml Anesthesia: General Drains: None Specimens: None Implants: Joe Gamma 4 short trochanteric Nail 11 x 180 mm, 125 degree Complications: None Condition: stable Indications: 84-year-old gentleman who had a ground-level fall and sustained a right intertrochanteric femur Fracture. We discussed the benefits and risks of the procedure including but not limited to infection, bleeding, injury to nerves and vessels, limb length discrepancy, nonunion, malunion, hardware failure, mariah-implant fracture, hip and knee stiffness, persistent pain, difficulty to ambulate, DVT, pulmonary embolism, cardiopulmonary event, need for further surgeries. The patient concurred with the proposed plan, giving informed consent. Procedure Details: The patient was seen in the pre-operative preparation area. The site of surgery was verbally confirmed and marked by the surgical team. The patient was properly identified by the unique identifiers and was then at that time transported to the operative theater by [facility]. A Time Out was held and the above information confirmed. Both lower extremities were placed on the fracture table with the contralateral extremity extended down to allow C-arm to come in. Close reduction maneuver was applied and AP and lateral x-rays were taken. Reduction was acceptable. Operative area was prepped and draped in a sterile fashion. Final timeout was performed. With the help of C-arm incision was marked. A 4 cm Incision was made proximal to the greater trochanter. An appropriate greater trochanter starting point was found using the starting wire under fluoroscopy. The wire was then drilled to the metadiaphyseal region of the femur. The opening reamer was then drilled into the metadiaphysis under fluoro. 11 x 180 mm, 125 degrees short Gamma Nail was then placed into the intramedullary canal of the femur and placement was verified with fluoroscopy and advanced to an appropriate level to allow placement of the lag screw. Guidewire was removed. We then drilled the wire for the lag screw up the neck of the femur under fluoroscopic guidance. AP and lateral x-rays showed good positioning of the wire through the neck into the head with good tip apex distance. The wire was then measured. Cannulated drill was used to drill a channel for the lag screw and a 95 mm lag screw was placed up the neck of the femur. A distal static interlocking screw 40 mm was placed with the help of the C-arm using the short gamma jig. This was placed in the proximal end of the oblong hole. Final fluorscopic images were then taken and the placement of the intramedullary device and fracture was deemed appropriate. The wounds were irrigated copiously with sterile solution and Irrisept. The deep fascia was closed with 0 vicryl suture. The deep dermal layer was closed with 2-0 vicryl suture. [place] were used to close the skin. Aquacel dressing was used, the incisions. The patient was then awaken, extubated and taken to the PACU. I was present and scrubbed for the entire procedure. Postoperative plan: Patient will be WBAT. Recommend PT/OT evaluation Pain Control F/u Outpatient in 2 weeks Independent Freight Agent Tuyet Miranda PA-C. My physician judicial administrative assistant was a vital part of this case. They were important in appropriate retraction during the case, and protection of soft tissues during the procedure. Their intimate knowledge of the case and my steps aided in safe and expedient completion of the procedure as well as appropriate position of the patient during the surgery. They were also vital in assisting with closure under my direct supervision. Surgical Findings: See operative note Complications Complications: No
[2025-04-26] MEDS: 0.9% Normal Saline (250mL Bag) 250 ML 15 ML IV (15:26)
--- NOTE | 2025-04-26 15:49 | POSTOP.ANE_ITS ---
Anesthesia: Postop Eval I
--- NOTE | 2025-04-26 15:49 | PCM.POST.ANE ---
Anesthesia: Postop Eval I Current Vital Signs Temperature: 99.4 F Pulse Rate: 86 Blood Pressure: 182/90 Respiratory Rate: 16 Pulse Ox: 96 Oxygen Delivery Method: Room Air Assessment Airway patent: Yes Spontaneous unlabored respirations: Yes Mental status: Awake and Calm nausea: No Vomiting: No Anesthesia Complication: No Fluid Hydration Crystalloid volume administer (ml): 500 Total IV fluid infused: 500 Progress Note Anesthesia document: Postop Eval 1 completed: Yes
--- NOTE | 2025-04-26 16:42 | POSTOPAN2_ITS ---
Anesthesia Postop Eval I Sum
--- NOTE | 2025-04-26 16:42 | PCM.POSTANE2 ---
Anesthesia Postop Eval I Sum Postop Eval Completion status Anesthesia document: Postop Eval 1 completed: Yes Anesthesia Postop Eval I Summary Anesthesia Postop Eval I Summary: Anesthesia Postop Eval I: Assessment Summary Airway patent Yes 04/26/25 15:50 [email or web address] Spontaneous unlabored Yes 04/26/25 15:50 [email or web address] [email or web address] respirations Mental status Awake,Calm 04/26/25 15:50 [email or web address] nausea No 04/26/25 15:50 [email or web address] Vomiting No 04/26/25 15:50 [email or web address] Anesthesia Postop Eval I: Fluid Summary Crystalloid volume administer 500 04/26/25 15:50 [email or web address] (ml) Colloids volume administered ( ml) Blood Product volume administered (ml) Total IV fluid infused 500 04/26/25 15:50 [email or web address] Anesthesia Postop Eval I: Summary Notes Anesthesia Complication No 04/26/25 15:50 [email or web address] Anesthesia Complication Comment: Post-operative progress note Anesthesia: Postop Eval II Evaluation Mental status: Awake and Calm Pain Level: 1 nausea: No Vomiting: No Complications Anesthesia Complication: No
[2025-04-26] MEDS: APIXABAN 2.5 MG TABLET (WCH) PO (21:33)
[2025-04-27] VITALS (11 sets, daily range): BP systolic 97–150; BP diastolic 67–80; PULSE 63–88; RESP 16; TEMP 36.6–37.2; O2SAT 94–98; BMI 20.8
[2025-04-27 06:54] LABS: Hematocrit 31.7 % (40-54); Hemoglobin 10.9 g/dL (13.0-16.5); Immature Granulocytes Count 0.030 X10^3/uL (0.0-0.0); Mean Corp Hgb Conc 34.4 g/dL (32-36); Mean Corpuscular Volume 85.4 fL (80-94); Mean Platelet Vol. 9.6 fl (6.2-12.0); NRBC Flagged by Analyzer 0 % (0-5); Platelet Count 226 K/mm3 (150-450); RBC Distribution Width CV 12.1 % (11.6-14.6); RBC Distribution Width SD 37.5 fl (35.1-43.9); Red Blood Count 3.71 M/mm3 (4.6-6.2); White Blood Count 10.7 K/mm3 (4.4-11.0)
--- NOTE | 2025-04-27 07:21 | PN.HOSP_ITS ---
Reason for Visit
--- NOTE | 2025-04-27 07:21 | PCM.PN.HOSP ---
Reason for Visit Chief Complaint: Right Hip Pain after Fall. Subjective Subjective Patient underwent open reduction internal fixation, cephalomedullary nailing with gamma nail, right intertrochanteric femur fracture on 04/26/[address] Serge Lees. Objective Data Objective Data Vital Signs: Vital Signs Temp Pulse Resp BP Pulse Ox O2 Del Method 98.0 F 75 16 130/80 H 94 Room Air 04/27/25 03:14 04/27/25 03:14 04/27/25 03:14 04/27/25 03:14 04/27/25 03:14 04/27/25 03:14 Oxygen Delivery Method Room Air Weight: 60.3 kg Body Mass Index (BMI) 20.8 Intake & Output: Intake and Output for Last 24 Hours 04/25/25 04/26/25 04/27/25 23:59 23:59 23:59 Intake Total 2009 616.25 / 1096.25 480 / 480 Output Total 400 / 400 550 / 1050 500 / 500 Balance 1610 / 1610 66.25 / 46.25 -20 / -20 Lab / Micro Data 04/27/25 06:14 04/27/25 06:14 Labs: Laboratory Results - last 24 hr 04/26/25 15:45: POC Glucose 191 H 04/26/25 21:32: POC Glucose 393 H 04/27/25 06:06: POC Glucose 178 H 04/27/25 06:14: WBC 10.7, RBC 3.71 L, Hgb 10.9 L, Hct 31.7 L, MCV 85.4, MCH 29.4, MCHC 34.4, RDW Std Deviation 37.5, RDW Coeff of Julieta 12.1, Plt Count 226, MPV 9.6, Immature Gran % (Auto) 0.300, Neut % (Auto) 79.7 H, Lymph % (Auto) 10.4 L, [place] % (Auto) 9.5, Eos % (Auto) 0.0, Baso % (Auto) 0.1, Absolute Neuts (auto) 8.6 H, Absolute Lymphs (auto) 1.12, Nucleated RBC % 0 Radiography Diagnostic Testing: Radiology Impression Hip X-Ray 04/26/25 13:00 IMPRESSION: Fluoroscopic localization and guidance. Correlate with procedural note. Reading Location: [facility] Physical Exam Narrative GENERAL: cooperative HEENT: Atraumatic; normocephalic EYES; Anicteric, Normal Conjunctiva NECK; supple, normal thyroid, RESPIRATORY: Diminished to auscultation CARDIOVASCULAR: Regular S1 S2, GI: soft, normoactive bowel sounds, : No Renal angle tenderness; EXTREMITIES: No edema, no clubbing, MUSCULOSKELETAL: no muscle wasting NEURO: Awake; no lateralizing signs. SKIN: No Rash PSYCH; Flat affect Assessment & Plan Assessment/Plan (1) Closed right hip fracture: QUALIFIERS: Encounter type: initial encounter Qualified Code(s): S72.001A - Fracture of unspecified part of neck of right femur, initial encounter for closed fracture (2) Fall: QUALIFIERS: Encounter type: initial encounter Qualified Code(s): W19.XXXA - Unspecified fall, initial encounter PLAN: Plan Patient is an 84-year-old gentleman who slipped and fell was working on his car. He subsequently developed right hip pain presented to the ED imaging studies obtained did show A mildly impacted intratrochanteric fracture of the proximal right femur is noted. No dislocation. 1. Fall with right hip fracture ? Imaging studies did show A mildly impacted intratrochanteric fracture of the proximal right femur is noted. No dislocation.. Patient admitted to a monitored bed management initiated with immobilization pain meds with consultation placed orthopedic surgery. Patient initial diagnostic evaluation including EKG and CBC and BMP reviewed. Case was also discussed with Dr. Lees with orthopedic surgery. Plan is for patient to proceed with surgery. Risks for perioperative morbidity/mortality remains moderate given patient history of coronary artery disease with previous CABG, history of ascending aortic aneurysm repair and pacemaker. Patient however denies any chest pain or shortness of breath with activity ? 04/26/2025;Patient surgery was postponed to 04/26/2025 after his procedure the day prior was canceled due to issues with the sterilization equipment. ? 04/27/2025;Patient underwent open reduction internal fixation, cephalomedullary nailing with gamma nail, right intertrochanteric femur fracture on 04/26/[address] Serge Lees.. Subsequently requested for PT OT eval and adoption social worker to assist with discharge 2. Coronary artery disease ? Status post CABG 3. Valvular heart disease ? Status post bioprosthetic AVR with bovine material 4. History of thoracic aortic aneurysmal repair ? Performed at [facility] in 2023 remains stable 5. Status post left atrial appendage clipping 6. Diabetes mellitus type 2 ? Patient was on metformin held on admission placed on Accu-Cheks AC and at bedtime with sliding scale coverage 7. Sick sinus syndrome Status post pacemaker placement telemetry monitoring demonstrated paced rhythm 8. BPH with lower urinary obstructive symptoms - Patient treated with tamsulosin 9. Generalized osteoarthritis ? 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 11. DVT prophylaxis ? Bilateral SCDs for now with plans to initiate chemoprophylaxis following surgery Time spent in the patient's overall evaluation,decision-making process, review of diagnostic data, adjustment of management, discussion with other providers, nursing nursing and ancillary staff involved in patient's care documentation, 36 minutes Charges/Coding Visit Charges Inpatient E&M: 11747 Subs Hosp L2
[2025-04-27 07:31] LABS: Anion Gap 8 (5-15); BUN 19 mg/dL (4-19); BUN/Creat Ratio 18.7 RATIO (10-20); Calcium,Total 8.9 mg/dL (7.6-11.0); Carbon Dioxide 22.4 mmol/L (21.0-32.0); Chloride 109 mmol/L (98-108); Estimated Creatinine Clearance 47.26 ml/min (50-250); Glucose 196 mg/dL (70-99); Potassium 4.2 mmol/L (3.3-5.1)
[2025-04-27] MEDS: APIXABAN 2.5 MG TABLET (WCH) PO ×2 (08:01→22:19)
[2025-04-27] MEDS: Magnesium Chloride 64 MG Delay Rel.Tablet 128 MG PO (08:01)
[2025-04-27] MEDS: 0.9% Saline Lock 10 ML Syringe IV (08:07)
--- NOTE | 2025-04-27 08:33 | PCM.PN.ORT ---
Subjective Subjective Is a pleasant 84-year-old gentleman postop day 1 status open reduction internal fixation, cephalomedullary nailing with gamma nail, displaced right intertrochanteric femur fracture per Dr. Lees. Patient was working on his car when he fell backwards and onto his right posterior hip 3 days ago. Reports pain is well-controlled with both IV and oral medications overnight. Patient states he has been out of bed several times, ambulatory with walker and assistance in room and once in keating early this morning. Patient states he tolerated well with some increase of leg pain after walking. Objective Data Objective Data Vital Signs: Vital Signs Temp Pulse Resp BP Pulse Ox O2 Del Method 98 F 71 16 142/74 H 96 Room Air 04/27/25 07:57 04/27/25 07:57 04/27/25 07:57 04/27/25 07:57 04/27/25 07:57 04/27/25 07:58 Oxygen Delivery Method Room Air Weight: 132 lb 15.02 oz Body Mass Index (BMI) 20.8 Intake & Output: Intake and Output for Last 24 Hours 04/25/25 04/26/25 04/27/25 23:59 23:59 23:59 Intake Total 2009 616.25 / 1096.25 480 / 480 Output Total 400 / 400 550 / 1050 500 / 500 Balance 1610 / 1610 66.25 / 46.25 -20 / -20 Lab / Micro Data Attestation: I reviewed the patient's lab results. 04/27/25 06:14 04/27/25 06:14 Labs: Laboratory Results - last 24 hr 04/26/25 15:45: POC Glucose 191 H 04/26/25 21:32: POC Glucose 393 H 04/27/25 06:06: POC Glucose 178 H 04/27/25 06:14: WBC 10.7, RBC 3.71 L, Hgb 10.9 L, Hct 31.7 L, MCV 85.4, MCH 29.4, MCHC 34.4, RDW Std Deviation 37.5, RDW Coeff of Julieta 12.1, Plt Count 226, MPV 9.6, Immature Gran % (Auto) 0.300, Neut % (Auto) 79.7 H, Lymph % (Auto) 10.4 L, Zavala % (Auto) 9.5, Eos % (Auto) 0.0, Baso % (Auto) 0.1, Absolute Neuts (auto) 8.6 H, Absolute Lymphs (auto) 1.12, Nucleated RBC % 0, Sodium 139, Potassium 4.2, Chloride 109 H, Carbon Dioxide 22.4, Anion Gap 8, BUN 19, Creatinine 1.01, Estim Creat Clear Calc 47.26 L, Est GFR (MDRD) Non-Af 74, BUN/Creatinine Ratio 18.7, Glucose 196 H, Calcium 8.9 Radiography Diagnostic Testing: Radiology Impression Hip X-Ray 04/26/25 13:00 IMPRESSION: Fluoroscopic localization and guidance. Correlate with procedural note. Reading Location: [facility] Physical Exam Const alert, oriented x3 and no apparent distress General Appearance: cooperative HEENT normocephalic Neck supple Resp normal respiratory effort Skin no rashes or lesions noted Right Hip Date of injury: 04/24/25 Date of Surgery: 04/26/25 Contralateral Normal: Yes Homans Sign: No HIP: Skin is pink, warm, dry and intact. Dressings to right hip incision x 2 are intact with small amount of dried bloody drainage to distal dressing. The drainage was outlined last night, there is minimal advancement on assessment today. There is no obvious swelling or ecchymosis to the right hip or thigh. No pain with palpation to periwound region, mild achiness to thigh with movement. ROM: Limited secondary to patient is upright in bed eating breakfast in semi fowlers position. Able to maneuver self in bed easily and roll for assessment. Calves are soft, nontender, negative Elif's Distal motor or sensory intact with brisk cap refill at 2 seconds Assessment & Plan Assessment/Plan (1) Closed hip fracture requiring operative repair: QUALIFIERS: Encounter type: subsequent encounter Fracture healing: with routine healing Laterality: right Qualified Code(s): S72.001D - Fracture of unspecified part of neck of right femur, subsequent encounter for closed fracture with routine healing PLAN: PT/OT eval and treat Continue pain control on prn basis per orders Pt anticipating short rehab stay locally, social work to assist with placement options Keep post op dressing dry and intact for 5 days, may remove on day 5, ok to shower with antibacterial soap and water, pat dry. Keep covered with a bandage to protect healing wound and david or for any drainage. May leave open to air with rest in 1 week prn, cover with activity, likely to be bumped or become soiled. Seek evaluation for any concerns of infection including increased pain, redness, swelling, drainage, streaking, fever or chills Follow up with ortho outpt in 2 weeks, sooner for changes or concerns. (2) Fracture, intertrochanteric, right femur: QUALIFIERS: Encounter type: initial encounter Fracture alignment: displaced Fracture type: closed Qualified Code(s): S72.141A - Displaced intertrochanteric fracture of right femur, initial encounter for closed fracture
--- NOTE | 2025-04-27 17:03 | CASEMGMT ---
Social Work- SW met with pt to discuss therapy recommendations. Pt is agreeable to Outpatient therapy and would like staff to schedule first appointment. Pt would like to go to [facility]. Pt still in room. SW verified with pt that pt will be going to stay with a friend again. Pt reports thats the plan, but was uncertain of what time friend would pick pt up. SW coordinated with bedside nurse and charge nurse to ensure that pt leaves for the evening per administration mandate. SW remains available to follow. ALEJANDRA Agudelo
--- NOTE | 2025-04-27 17:54 | NURSING ---
aware pt's left unit w/ female family friend.
[2025-04-28 03:41] VITALS: BP 137/77; PULSE 76; RESP 16; TEMP 36.7; O2SAT 97
[2025-04-28 05:39] VITALS: BMI 25.6
[2025-04-28 07:12] LABS: Hematocrit 31.0 % (40-54); Hemoglobin 10.3 g/dL (13.0-16.5); Immature Granulocytes Count 0.040 X10^3/uL (0.0-0.0); Mean Corp Hgb Conc 33.2 g/dL (32-36); Mean Corpuscular Volume 87.8 fL (80-94); Mean Platelet Vol. 9.8 fl (6.2-12.0); NRBC Flagged by Analyzer 0 % (0-5); Platelet Count 222 K/mm3 (150-450); RBC Distribution Width CV 12.6 % (11.6-14.6); RBC Distribution Width SD 40.0 fl (35.1-43.9); Red Blood Count 3.53 M/mm3 (4.6-6.2); White Blood Count 9.7 K/mm3 (4.4-11.0)
--- NOTE | 2025-04-28 07:26 | PN.HOSP_ITS ---
Reason for Visit
--- NOTE | 2025-04-28 07:26 | PCM.PN.HOSP ---
Reason for Visit Chief Complaint: Right Hip Pain after Fall. Subjective Subjective Patient seen plan is to make decision regarding discharge following PT/OT eval this a.m. Patient feels he is not ready for home and is reluctant Objective Data Objective Data Vital Signs: Vital Signs Temp Pulse Resp BP Pulse Ox O2 Del Method 98.1 F 76 16 137/77 H 97 Room Air 04/28/25 03:41 04/28/25 03:41 04/28/25 03:41 04/28/25 03:41 04/28/25 03:41 04/28/25 03:41 Oxygen Delivery Method Room Air Weight: 74.1 kg Body Mass Index (BMI) 25.6 Intake & Output: Intake and Output for Last 24 Hours 04/26/25 04/27/25 04/28/25 23:59 23:59 23:59 Intake Total 616.25 / 1096.25 1530 / 1530 Output Total 550 / 1050 600 / 600 50 / 50 Balance 66.25 / 46.25 930 / 930 -50 / -50 Lab / Micro Data 04/28/25 06:41 04/28/25 06:41 Labs: Laboratory Results - last 24 hr 04/27/25 06:14: Sodium 139, Potassium 4.2, Chloride 109 H, Carbon Dioxide 22.4, Anion Gap 8, BUN 19, Creatinine 1.01, Estim Creat Clear Calc 47.26 L, Est GFR (MDRD) Non-Af 74, BUN/Creatinine Ratio 18.7, Glucose 196 H, Calcium 8.9 04/27/25 11:30: POC Glucose 232 H 04/27/25 18:35: POC Glucose 222 H 04/27/25 22:30: POC Glucose 176 H 04/28/25 06:36: POC Glucose 144 H 04/28/25 06:41: WBC 9.7, RBC 3.53 L, Hgb 10.3 L, Hct 31.0 L, MCV 87.8, MCH 29.2, MCHC 33.2, RDW Std Deviation 40.0, RDW Coeff of Julieta 12.6, Plt Count 222, MPV 9.8, Immature Gran % (Auto) 0.400, Neut % (Auto) 62.7, Lymph % (Auto) 23.7, Elk % (Auto) 9.5, Eos % (Auto) 3.2, Baso % (Auto) 0.5, Absolute Neuts (auto) 6.0, Absolute Lymphs (auto) 2.29, Nucleated RBC % 0 Physical Exam Narrative GENERAL: cooperative HEENT: Atraumatic; normocephalic EYES; Anicteric, Normal Conjunctiva NECK; supple, normal thyroid, RESPIRATORY: Diminished to auscultation CARDIOVASCULAR: Regular S1 S2, GI: soft, normoactive bowel sounds, : No Renal angle tenderness; EXTREMITIES: No edema, no clubbing, MUSCULOSKELETAL: no muscle wasting NEURO: Awake; no lateralizing signs. SKIN: No Rash PSYCH; Flat affect Const alert, oriented x3, no apparent distress, average body habitus and healthy appearing General Appearance: cooperative HEENT normocephalic, head/scalp atraumatic, hearing grossly normal bilaterally and moist oral mucous membranes Eyes PERRL, EOMs intact bilaterally and conjunctivae normal Neck no lymphadenopathy, supple and no JVD Resp normal respiratory effort, no retractions, no use of accessory muscles and clear to auscultation bilaterally Cardio regular rate and regular rhythm GI normal to inspection, nondistended, normoactive bowel sounds, soft to palpation, non-tender and non-distended Extremity Extremity Narrative: Right hip is TTP posteriorly with limited range of motion with RLE shortening and external rotation. DP and PT pulses are intact bilaterally with intact sensation and patient able to wiggle toes with extremities otherwise atraumatic. Skin Skin Narrative: Patient no evidence of rash. Neuro oriented x3, CN's II-XII intact bilaterally, moves all extremities and no focal motor deficits Sensorium / Orientation: awake, alert, oriented to person, oriented to place and oriented to time Speech: speech normal Psych affect normal Assessment & Plan Assessment/Plan (1) Closed right hip fracture: QUALIFIERS: Encounter type: initial encounter Qualified Code(s): S72.001A - Fracture of unspecified part of neck of right femur, initial encounter for closed fracture (2) Fall: QUALIFIERS: Encounter type: initial encounter Qualified Code(s): W19.XXXA - Unspecified fall, initial encounter PLAN: Plan Patient is an 84-year-old gentleman who slipped and fell was working on his car. He subsequently developed right hip pain presented to the ED imaging studies obtained did show A mildly impacted intratrochanteric fracture of the proximal right femur is noted. No dislocation. 1. Fall with right hip fracture ? Imaging studies did show A mildly impacted intratrochanteric fracture of the proximal right femur is noted. No dislocation.. Patient admitted to a monitored bed management initiated with immobilization pain meds with consultation placed orthopedic surgery. Patient initial diagnostic evaluation including EKG and CBC and BMP reviewed. Case was also discussed with Dr. Lees with orthopedic surgery. Plan is for patient to proceed with surgery. Risks for perioperative morbidity/mortality remains moderate given patient history of coronary artery disease with previous CABG, history of ascending aortic aneurysm repair and pacemaker. Patient however denies any chest pain or shortness of breath with activity ? 04/26/2025;Patient surgery was postponed to 04/26/2025 after his procedure the day prior was canceled due to issues with the sterilization equipment. ? 04/27/2025;Patient underwent open reduction internal fixation, cephalomedullary nailing with gamma nail, right intertrochanteric femur fracture on 04/26/[address] Serge Lees.. Subsequently requested for PT OT eval and social science manager to assist with discharge ? 04/28/2025;Patient seen plan is to make decision regarding discharge following PT/OT eval this a.m. Patient feels he is not ready for home and is reluctant 2. Coronary artery disease ? Status post CABG 3. Valvular heart disease ? Status post bioprosthetic AVR with bovine material 4. History of thoracic aortic aneurysmal repair ? Performed at [facility] in 2023 remains stable 5. Status post left atrial appendage clipping 6. Diabetes mellitus type 2 ? Patient was on metformin held on admission placed on Accu-Cheks AC and at bedtime with sliding scale coverage 7. Sick sinus syndrome Status post pacemaker placement telemetry monitoring demonstrated paced rhythm 8. BPH with lower urinary obstructive symptoms - Patient treated with tamsulosin 9. Generalized osteoarthritis ? 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 11. DVT prophylaxis ? Bilateral SCDs for now with plans to initiate chemoprophylaxis following surgery Time spent in the patient's overall evaluation,decision-making process, review of diagnostic data, adjustment of management, discussion with other providers, nursing nursing and ancillary staff involved in patient's care documentation, 35 minutes Charges/Coding Visit Charges Inpatient E&M: 68282 Subs Hosp L2
[2025-04-28 07:38] LABS: Anion Gap 8 (5-15); BUN 22 mg/dL (4-19); BUN/Creat Ratio 18.2 RATIO (10-20); Calcium,Total 8.7 mg/dL (7.6-11.0); Carbon Dioxide 24.2 mmol/L (21.0-32.0); Chloride 109 mmol/L (98-108); Estimated Creatinine Clearance 43.25 ml/min (50-250); Glucose 142 mg/dL (70-99); Potassium 4.2 mmol/L (3.3-5.1)
[2025-04-28 08:35] VITALS: BP 133/73; PULSE 71; RESP 17; TEMP 36.6; O2SAT 98
[2025-04-28] MEDS: Magnesium Chloride 64 MG Delay Rel.Tablet 128 MG PO (08:36)
[2025-04-28] MEDS: APIXABAN 2.5 MG TABLET (WCH) PO ×2 (08:37→21:54)
--- NOTE | 2025-04-28 11:29 | CASEMGMT ---
Social Work Extensive conversation with pt, pt's and family friend regarding discharge plan. Pt frustrated that he has been told that he is medically ready for discharge. GISEL reviewed therapy notes with pt and pt progress. After discussion and allowing pt to voice frustrations and feelings regarding hosiptal stay, SW addressed discharge plan with pt. Pt is requesting to go to [facility] or TCU for a few days. Pt stating he would like to return home on Friday and only be in a facility over the weekend. SW explained that the facilities may not feel this would be long enough, but SW can make a referral. SW offered to provide a list of SNF options. Pt denies a list stating he lives up the street from [place] and this is his first choice, TCU would be second choice. SW reassured pt that therapy would work with him again today. GISEL inquired if [facility] would not admit just for the weekend, what pt would like to do and pt feels he will just return home then. GISEL also inquired about pt . Pt very certain that pt can stay at home alone while he is at [facility] as it is just down the street. Pt's friend expressing concerns to pt with 's safety at home alone. Pt disagreeing that this is a problem. DC personal care assistant updated and to make referral to [facility]. ALEJANDRA Horowitz
--- NOTE | 2025-04-28 11:47 | CASEMGMT ---
Addendum entered by Faiza Elizondo 04/28/25 14:42: [facility] has accepted. SW updated. Faiza Elizondo DC Planning Asst. Original Note: Discharge Planning Referral sent via [facility] to [facility]. Faiza Elizondo DC Planinng Asst.
[2025-04-28 14:11] VITALS: BP 134/76; PULSE 80; RESP 17; TEMP 36.7; O2SAT 98
--- NOTE | 2025-04-28 14:30 | CASEMGMT ---
Social Work [facility] has accepted pt and is aware that pt states he will be discharging from [facility] on Friday. SW met with pt and informed that he has been accepted. Pt states that he would like to discharge to [facility]. SW explained that physician would be notified and pt would likely be discharged today. Pt is agreeable to this dc plan. SW again expressed to pt concerns with pt being home alone due to cognitive impairment. Pt again denies any concerns. Pt states that home is just up the street from [facility] and pt's can walk up and see him. SW expressed safety concerns with this plan. Pt denies. SW provided pt with list of private duty caregivers. Pt accepting of list but states does not intend to call. Pt states he has friends and neighbors who can check in on . SW explained that transportation can be set up through [facility], and pt will be responsible for payment. Pt states he will call a friend for a ride. Physician notified of accepting facility and plans to dc pt today. ALEJANDRA Horowitz
--- NOTE | 2025-04-28 14:57 | CASEMGMT ---
Social Work [facility] is able to accept pt. SW met with pt and informed that [facility] is able to accept and SW inquired about pt dc wishes. Pt stating he would like to go to [facility] for the weekend. SW again inquired about safety of pt's at home alone over the weekend. Pt is confident his will be ok in her own home. Pt states she can walk up the street to [facility]. SW expressed concerns with the safety of this plan. Pt states they can be on the phone together while she walks. Pt also states they have neighbors that can check on pt. SW again expressed concern with pt at home alone over night. SW provided pt with a list of private duty caregivers. Pt accepting of information but indicating he does not need to call anyone. Physician notified that pt plans to go to [facility] and can dc when medically ready. ALEJANDRA Hathaway
--- NOTE | 2025-04-28 15:06 | PCM.DC.SUM ---
Providers Date of Admission: 04/24/25 Date of Discharge: 04/28/25 Primary Care Physician: Dr. Kevin Mcadams MD Consultations 04/24/25 22:37 Consult: Orthopedics Routine Consulting Provider: Serge Lees Reason for Consult: Right Hip Fracture after Fall. EMERGENT Consult: No MD Notified: Yes Date Notified: 04/24/25 Time Notified: 22:37 Method of Notification: ED Physician Initiated Reason For Visit: RIGHT HIP FRACTURE AFTER FALL Diagnosis Discharge Diagnosis (1) Closed right hip fracture: Status: Acute Code(s): S72.001A - Fracture of unspecified part of neck of right femur, initial encounter for closed fracture Qualifiers: Encounter type: initial encounter Qualified Code(s): S72.001A - Fracture of unspecified part of neck of right femur, initial encounter for closed fracture (2) Fall: Status: Acute Code(s): W19.XXXA - Unspecified fall, initial encounter Qualifiers: Encounter type: initial encounter Qualified Code(s): W19.XXXA - Unspecified fall, initial encounter Plan Patient is an 84-year-old gentleman who slipped and fell was working on his car. He subsequently developed right hip pain presented to the ED imaging studies obtained did show A mildly impacted intratrochanteric fracture of the proximal right femur is noted. No dislocation. 1. Fall with right hip fracture ? Imaging studies did show A mildly impacted intratrochanteric fracture of the proximal right femur is noted. No dislocation.. Patient admitted to a monitored bed management initiated with immobilization pain meds with consultation placed orthopedic surgery. Patient initial diagnostic evaluation including EKG and CBC and BMP reviewed. Case was also discussed with Dr. Lees with orthopedic surgery. Plan is for patient to proceed with surgery. Risks for perioperative morbidity/mortality remains moderate given patient history of coronary artery disease with previous CABG, history of ascending aortic aneurysm repair and pacemaker. Patient however denies any chest pain or shortness of breath with activity ? 04/26/2025;Patient surgery was postponed to 04/26/2025 after his procedure the day prior was canceled due to issues with the sterilization equipment. ? 04/27/2025;Patient underwent open reduction internal fixation, cephalomedullary nailing with gamma nail, right intertrochanteric femur fracture on 04/26/[address] Serge Lees.. Subsequently requested for PT OT eval and social secretary to assist with discharge ? 04/28/2025;Patient seen plan is to make decision regarding discharge following PT/OT eval this a.m. Patient feels he is not ready for home and is reluctant 2. Coronary artery disease ? Status post CABG 3. Valvular heart disease ? Status post bioprosthetic AVR with bovine material 4. History of thoracic aortic aneurysmal repair ? Performed at [facility] in 2023 remains stable 5. Status post left atrial appendage clipping 6. Diabetes mellitus type 2 ? Patient was on metformin held on admission placed on Accu-Cheks AC and at bedtime with sliding scale coverage 7. Sick sinus syndrome Status post pacemaker placement telemetry monitoring demonstrated paced rhythm 8. BPH with lower urinary obstructive symptoms - Patient treated with tamsulosin 9. Generalized osteoarthritis ? 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 11. DVT prophylaxis ? Bilateral SCDs for now with plans to initiate chemoprophylaxis following surgery Time spent in the patient's overall evaluation,decision-making process, review of diagnostic data, adjustment of management, discussion with other providers, nursing nursing and ancillary staff involved in patient's care documentation, 35 minutes Medications at Discharge Home Medications multivitamin 1 ea PO DAILY supplement 04/29/17 cholecalciferol (vitamin D3) 125 mcg (5,000 unit) capsule 5,000 unit PO DAILY supplement 05/03/19 coenzyme Q10 300 mg capsule 300 mg PO DAILY supplement 05/03/19 zinc 1 tab PO DAILY supplement 05/08/22 aspirin 81 mg tablet 81 mg PO DAILY blood thinner 04/24/25 magnesium 250 mg tablet 250 mg PO DAILY supplement 04/24/25 metformin 500 mg tablet 500 mg PO DAILY dm 04/24/25 tamsulosin 0.4 mg capsule 0.4 mg PO DAILY bph 04/24/25 aluminum-mag hydroxide-simethicone 400 mg-400 mg-40 mg/5 mL oral susp (Mag-Al Plus Extra Strength) 30 ml PO Q6H PRN PRN Gastric Burning #0 mL 04/28/25 apixaban 5 mg tablet (Eliquis) 2.5 mg (1/2 x 5 mg) PO BID 30 days #0 tabs 04/28/25 calcium carbonate 500 mg (2.5 x 200 mg calcium (500 mg)) PO TIDCM #0 tabs 04/28/25 magnesium hydroxide 400 mg/5 mL oral suspension 30 ml PO DAILY PRN PRN Constipation #0 mL 04/28/25 melatonin 3 mg tablet 3 mg PO QHS PRN PRN Insomnia #0 tabs 04/28/25 oxycodone 5 mg tablet 5 mg PO Q4H PRN PRN Pain Score 4-10 2 days #6 tabs 04/28/25 Physical Exam Narrative GENERAL: cooperative HEENT: Atraumatic; normocephalic EYES; Anicteric, Normal Conjunctiva NECK; supple, normal thyroid, RESPIRATORY: Diminished to auscultation CARDIOVASCULAR: Regular S1 S2, GI: soft, normoactive bowel sounds, : No Renal angle tenderness; EXTREMITIES: No edema, no clubbing, MUSCULOSKELETAL: no muscle wasting NEURO: Awake; no lateralizing signs. SKIN: No Rash PSYCH; Flat affect Weight / BMI Weight Weight: 60.3 kg Body Mass Index (BMI) 25.6 ABG / Lab / Microbiology Data 04/28/25 06:41 04/28/25 06:41 Laboratory: Laboratory Results - last 24 hr 04/27/25 18:35: POC Glucose 222 H 04/27/25 22:30: POC Glucose 176 H 04/28/25 06:36: POC Glucose 144 H 04/28/25 06:41: WBC 9.7, RBC 3.53 L, Hgb 10.3 L, Hct 31.0 L, MCV 87.8, MCH 29.2, MCHC 33.2, RDW Std Deviation 40.0, RDW Coeff of Julieta 12.6, Plt Count 222, MPV 9.8, Immature Gran % (Auto) 0.400, Neut % (Auto) 62.7, Lymph % (Auto) 23.7, [place]acy % (Auto) 9.5, Eos % (Auto) 3.2, Baso % (Auto) 0.5, Absolute Neuts (auto) 6.0, Absolute Lymphs (auto) 2.29, Nucleated RBC % 0, Sodium 141, Potassium 4.2, Chloride 109 H, Carbon Dioxide 24.2, Anion Gap 8, BUN 22 H, Creatinine 1.21 H, Estim Creat Clear Calc 43.25 L, Est GFR (MDRD) Non-Af 59 L, BUN/Creatinine Ratio 18.2, Glucose 142 H, Calcium 8.7 04/28/25 10:48: POC Glucose 226 H D/C Instructions DC O2, CPAP, BIPAP Needs Home O2 Discharge instructions: No Meaningful Use Info Meaningful Use Meaningful Use Diagnoses (Choose all that apply): None applicable Discharge Plan Admission Admit Date/Time: 04/24/25 22:34 Attending Provider: Jose A Pinedo Primary Care Provider: Kevin Mcadams Consulting Providers: Serge Lees; Jose A Roque Discharge Orders/Prescriptions Prescriptions: New melatonin 3 mg Tablet 3 mg PO QHS PRN PRN (Reason: Insomnia) Qty: 0 0RF magnesium hydroxide 400 mg/5 mL Suspension 30 ml PO DAILY PRN PRN (Reason: Constipation) Qty: 0 0RF alum-mag hydroxide-simeth [Mag-Al Plus Extra Strength] 400-400-40 mg/5 mL Suspension 30 ml PO Q6H PRN PRN (Reason: Gastric Burning) Qty: 0 0RF oxycodone 5 mg Tablet 5 mg PO Q4H PRN PRN (Reason: Pain Score 4-10) 2 Days Qty: 6 0RF Eliquis 5 mg Tablet 2.5 mg PO BID 30 Days Qty: 0 0RF calcium carbonate 200 mg calcium (500 mg) Tablet,Chewable 500 mg PO TIDCM Qty: 0 0RF Continued cholecalciferol (vitamin D3) 5,000 unit capsule 5,000 unit PO DAILY coenzyme Q10 300 mg capsule 300 mg PO DAILY multivitamin 1 EACH tablet 1 ea PO DAILY zinc Tablet,Chewable 1 tab PO DAILY metformin 500 mg tablet 500 mg PO DAILY tamsulosin 0.4 mg capsule 0.4 mg PO DAILY Patient Comments: HAS NOT TAKEN FOR A COUPLE OF DAYS OF 04/24/25 aspirin 81 mg tablet 81 mg PO DAILY magnesium 250 mg tablet 250 mg PO DAILY Referrals / Follow Up: Serge Lees MD [Med Staff - Active Staff, Orthopedics] - Within 2 Weeks Kevin Mcadams MD [Primary Care Provider, Family Practice] - Within 2 Weeks Disposition Disposition (needs filled in before D/C Order can be placed): [facility] Charges/Coding Visit Charges Inpatient E&M: 25962 Disch Hosp >30min
--- NOTE | 2025-04-28 15:19 | PCM.TXEXTCAR ---
Diet Diet Order/Speech Therapy: INPATIENT Hospital Diet / Speech Therapy Order(s) 04/28/25 14:51 Diet: Carbohydrate Controlled Food consistency:: Regular Liquid Consistency:: Regular/Thin Routine Orders/Code Status Code Status: Full Code DC O2, CPAP, BIPAP needs Home O2 Discharge instructions: No Wound(s) right hip: Wound Type: Surgical Incision RIGHT UPPER LEG: Wound Type: Surgical Incision L lower back: Wound Type: scab Therapies Physical Therapy: Eval and Treat Occupational Therapy: Eval and Treat Problem/Diagnosis (1) Closed right hip fracture: Status: Acute Code(s): S72.001A - Fracture of unspecified part of neck of right femur, initial encounter for closed fracture (2) Fall: Status: Acute Code(s): W19.XXXA - Unspecified fall, initial encounter Plan Patient is an 84-year-old gentleman who slipped and fell was working on his car. He subsequently developed right hip pain presented to the ED imaging studies obtained did show A mildly impacted intratrochanteric fracture of the proximal right femur is noted. No dislocation. 1. Fall with right hip fracture ? Imaging studies did show A mildly impacted intratrochanteric fracture of the proximal right femur is noted. No dislocation.. Patient admitted to a monitored bed management initiated with immobilization pain meds with consultation placed orthopedic surgery. Patient initial diagnostic evaluation including EKG and CBC and BMP reviewed. Case was also discussed with Dr. Lees with orthopedic surgery. Plan is for patient to proceed with surgery. Risks for perioperative morbidity/mortality remains moderate given patient history of coronary artery disease with previous CABG, history of ascending aortic aneurysm repair and pacemaker. Patient however denies any chest pain or shortness of breath with activity ? 04/26/2025;Patient surgery was postponed to 04/26/2025 after his procedure the day prior was canceled due to issues with the sterilization equipment. ? 04/27/2025;Patient underwent open reduction internal fixation, cephalomedullary nailing with gamma nail, right intertrochanteric femur fracture on 04/26/[address] Serge Lees.. Subsequently requested for PT OT eval and dialysis social worker to assist with discharge ? 04/28/2025;Patient seen plan is to make decision regarding discharge following PT/OT eval this a.m. Patient feels he is not ready for home and is reluctant 2. Coronary artery disease ? Status post CABG 3. Valvular heart disease ? Status post bioprosthetic AVR with bovine material 4. History of thoracic aortic aneurysmal repair ? Performed at [facility] in 2023 remains stable 5. Status post left atrial appendage clipping 6. Diabetes mellitus type 2 ? Patient was on metformin held on admission placed on Accu-Cheks AC and at bedtime with sliding scale coverage 7. Sick sinus syndrome Status post pacemaker placement telemetry monitoring demonstrated paced rhythm 8. BPH with lower urinary obstructive symptoms - Patient treated with tamsulosin 9. Generalized osteoarthritis ? 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 11. DVT prophylaxis ? Bilateral SCDs for now with plans to initiate chemoprophylaxis following surgery Time spent in the patient's overall evaluation,decision-making process, review of diagnostic data, adjustment of management, discussion with other providers, nursing nursing and ancillary staff involved in patient's care documentation, 35 minutes Allergies/Procedures Done in Hospital Allergies No Known Allergies Allergy (Verified 05/10/22 07:29) Type of Care/Length of Stay Estimated LOS: Convalescent Care Less Than 30 days Type of Care Needed: Skilled Rehab Potential: Good Prognosis: Good Additional Orders/Day of Discharge Day of Discharge: 04/28/25 Dietary and Speech Recommendations Dietitian Recommendations/Changes: Will adjust diet to carbohydrate-controlled. Will offer PO glucerna shake as needed if PO fails at meals. Discharge Plan Admission Admit Date/Time: 04/24/25 22:34 Attending Provider: Jose A Pinedo Primary Care Provider: Kevin Mcadams Consulting Providers: Serge Lees; Jose A Roque Discharge Orders/Prescriptions Prescriptions: New melatonin 3 mg Tablet 3 mg PO QHS PRN PRN (Reason: Insomnia) Qty: 0 0RF magnesium hydroxide 400 mg/5 mL Suspension 30 ml PO DAILY PRN PRN (Reason: Constipation) Qty: 0 0RF alum-mag hydroxide-simeth [Mag-Al Plus Extra Strength] 400-400-40 mg/5 mL Suspension 30 ml PO Q6H PRN PRN (Reason: Gastric Burning) Qty: 0 0RF oxycodone 5 mg Tablet 5 mg PO Q4H PRN PRN (Reason: Pain Score 4-10) 2 Days Qty: 6 0RF Eliquis 5 mg Tablet 2.5 mg PO BID 30 Days Qty: 0 0RF calcium carbonate 200 mg calcium (500 mg) Tablet,Chewable 500 mg PO TIDCM Qty: 0 0RF Continued cholecalciferol (vitamin D3) 5,000 unit capsule 5,000 unit PO DAILY coenzyme Q10 300 mg capsule 300 mg PO DAILY multivitamin 1 EACH tablet 1 ea PO DAILY zinc Tablet,Chewable 1 tab PO DAILY metformin 500 mg tablet 500 mg PO DAILY tamsulosin 0.4 mg capsule 0.4 mg PO DAILY Patient Comments: HAS NOT TAKEN FOR A COUPLE OF DAYS OF 04/24/25 aspirin 81 mg tablet 81 mg PO DAILY magnesium 250 mg tablet 250 mg PO DAILY Referrals / Follow Up: Serge Lees MD [Med Staff - Active Staff, Orthopedics] - Within 2 Weeks Kevin Mcadams MD [Primary Care Provider, Family Practice] - Within 2 Weeks Disposition Disposition (needs filled in before D/C Order can be placed): [facility] (1) Closed right hip fracture Qualifiers: Encounter type: initial encounter Qualified Code(s): S72.001A - Fracture of unspecified part of neck of right femur, initial encounter for closed fracture (2) Fall Qualifiers: Encounter type: initial encounter Qualified Code(s): W19.XXXA - Unspecified fall, initial encounter
--- NOTE | 2025-04-28 15:52 | PHA.DC_ITS ---
Pharmacy DC Med Reconciliation
--- NOTE | 2025-04-28 15:52 | PHA.DC.MR.R ---
Pharmacy CT Med Reconciliation Pharmacy Service has performed discharge medication reconciliation for this patient. The patient's discharge medication list was reviewed for discrepancies and discrepancies were resolved. Medications at Discharge Home Medications multivitamin 1 ea PO DAILY supplement 04/29/17 cholecalciferol (vitamin D3) 125 mcg (5,000 unit) capsule 5,000 unit PO DAILY supplement 05/03/19 coenzyme Q10 300 mg capsule 300 mg PO DAILY supplement 05/03/19 zinc 1 tab PO DAILY supplement 05/08/22 aspirin 81 mg tablet 81 mg PO DAILY blood thinner 04/24/25 magnesium 250 mg tablet 250 mg PO DAILY supplement 04/24/25 metformin 500 mg tablet 500 mg PO DAILY dm 04/24/25 tamsulosin 0.4 mg capsule 0.4 mg PO DAILY bph 04/24/25 aluminum-mag hydroxide-simethicone 400 mg-400 mg-40 mg/5 mL oral susp (Mag-Al Plus Extra Strength) 30 ml PO Q6H PRN PRN Gastric Burning #0 mL 04/28/25 apixaban 5 mg tablet (Eliquis) 2.5 mg (1/2 x 5 mg) PO BID 30 days #0 tabs 04/28/25 calcium carbonate 500 mg (2.5 x 200 mg calcium (500 mg)) PO TIDCM #0 tabs 04/28/25 magnesium hydroxide 400 mg/5 mL oral suspension 30 ml PO DAILY PRN PRN Constipation #0 mL 04/28/25 melatonin 3 mg tablet 3 mg PO QHS PRN PRN Insomnia #0 tabs 04/28/25 oxycodone 5 mg tablet 5 mg PO Q4H PRN PRN Pain Score 4-10 2 days #6 tabs 04/28/25
--- NOTE | 2025-04-28 16:15 | CASEMGMT ---
Social Work Per physician, pt is ready for discharge. 7000 exemption form completed in [facility]. Discharge orders sent to [facility] via [facility]. GISEL met with pt and informed that per physician pt is ready for discharge today. Pt very upset, does not feel he is ready for discharge today. Pt frustrated and listing numerous reasons he cannot be discharged at this time. Pt requesting discharge in the morning. Physician notified of pt's concerns and agreeable for discharge in the morning. [facility] notified and RN made aware. GISEL again spoke with pt regarding concerns about pt's safety at home alone. Pt continues to deny safety concerns or finding someone to stay with while pt is at SNF. Phone call placed to pt dgt Zahida and explained situation and concerns for her mothers safety at home alone. Zahida appreciative of call but feels nothing can be done. Zahida feels mother will be ok at home and will be able to walk to [facility] to see pt and states when mother gets confused, she knows to call someone to get help. Plan: DC to [facility] tomorrow. ALEJANDRA Hathaway
[2025-04-28 20:10] VITALS: BP 143/74; PULSE 83; RESP 18; TEMP 37.2; O2SAT 98
[2025-04-29 03:10] VITALS: BP 160/88; PULSE 73; RESP 18; TEMP 37.4; O2SAT 97
[2025-04-29] MEDS: Hydrocortisone 2.5% Crm 1 APPLIC TOPICAL (03:15)
[2025-04-29 03:59] VITALS: BMI 20.8
--- NOTE | 2025-04-29 08:55 | CASEMGMT ---
Addendum entered by Dayna Caldwell 04/29/25 10:28: Social Work Physician orders are in and pt is ready for discharge. GISEL met with pt and who are agreeable to dc at this time. Pt will call a friend who will pick pt and up at 1100. Nursing aware. DC manufacturing assistant updated and to send orders to [place] and notify of discharge time. Phone call to [facility] and spoke with Maryam and report made regarding pt's with dementia being home alone. ALEJANDRA Hathaway Original Note: Social Work SW met with pt to discuss discharge plan. Pt is agreeable to discharge today to [place]. Pt states he will arrange his own transportation once he has a time of discharge. Physician notified that pt is agreeable to discharge and that [facility] has accepted. SW informed pt that will notify him when discharge has been finalized. Plan: [facility], skilled level of care today ALEJANDRA Horowitz
[2025-04-29 09:15] VITALS: BP 120/67; PULSE 81; RESP 16; TEMP 36.8; O2SAT 97
[2025-04-29] MEDS: Magnesium Chloride 64 MG Delay Rel.Tablet 128 MG PO (09:25)
[2025-04-29] MEDS: APIXABAN 2.5 MG TABLET (WCH) PO (09:25)
--- NOTE | 2025-04-29 09:35 | PCM.TXEXTCAR ---
Diet Diet Order/Speech Therapy: INPATIENT Hospital Diet / Speech Therapy Order(s) 04/28/25 14:51 Diet: Carbohydrate Controlled Food consistency:: Regular Liquid Consistency:: Regular/Thin Routine Orders/Code Status Code Status: Full Code DC O2, CPAP, BIPAP needs Home O2 Discharge instructions: No Wound(s) right hip: Wound Type: Surgical Incision RIGHT UPPER LEG: Wound Type: Surgical Incision L lower back: Wound Type: scab Therapies Physical Therapy: Eval and Treat Occupational Therapy: Eval and Treat Problem/Diagnosis (1) Closed right hip fracture: Status: Acute Code(s): S72.001A - Fracture of unspecified part of neck of right femur, initial encounter for closed fracture (2) Fall: Status: Acute Code(s): W19.XXXA - Unspecified fall, initial encounter Allergies/Procedures Done in Hospital Allergies No Known Allergies Allergy (Verified 05/10/22 07:29) Type of Care/Length of Stay Estimated LOS: Convalescent Care Less Than 30 days Type of Care Needed: Skilled Rehab Potential: Good Prognosis: Good Additional Orders/Day of Discharge Day of Discharge: 04/28/25 Dietary and Speech Recommendations Dietitian Recommendations/Changes: Will adjust diet to carbohydrate-controlled. Will offer PO glucerna shake as needed if PO fails at meals. Discharge Plan Admission Admit Date/Time: 04/24/25 22:34 Attending Provider: Johnathon Horn Primary Care Provider: Kevin Mcadams Consulting Providers: Serge Lees; Jose A Roque; Jose A Pinedo Discharge Orders/Prescriptions Prescriptions: New melatonin 3 mg Tablet 3 mg PO QHS PRN PRN (Reason: Insomnia) Qty: 0 0RF magnesium hydroxide 400 mg/5 mL Suspension 30 ml PO DAILY PRN PRN (Reason: Constipation) Qty: 0 0RF alum-mag hydroxide-simeth [Mag-Al Plus Extra Strength] 400-400-40 mg/5 mL Suspension 30 ml PO Q6H PRN PRN (Reason: Gastric Burning) Qty: 0 0RF oxycodone 5 mg Tablet 5 mg PO Q4H PRN PRN (Reason: Pain Score 4-10) 2 Days Qty: 6 0RF Eliquis 5 mg Tablet 2.5 mg PO BID 30 Days Qty: 0 0RF calcium carbonate 200 mg calcium (500 mg) Tablet,Chewable 500 mg PO TIDCM Qty: 0 0RF Continued cholecalciferol (vitamin D3) 5,000 unit capsule 5,000 unit PO DAILY coenzyme Q10 300 mg capsule 300 mg PO DAILY multivitamin 1 EACH tablet 1 ea PO DAILY zinc Tablet,Chewable 1 tab PO DAILY metformin 500 mg tablet 500 mg PO DAILY tamsulosin 0.4 mg capsule 0.4 mg PO DAILY Patient Comments: HAS NOT TAKEN FOR A COUPLE OF DAYS OF 04/24/25 aspirin 81 mg tablet 81 mg PO DAILY magnesium 250 mg tablet 250 mg PO DAILY Referrals / Follow Up: Serge Lees MD [Med Staff - Active Staff, Orthopedics] - Within 2 Weeks Kevin Mcadams MD [Primary Care Provider, Family Practice] - Within 2 Weeks Disposition Disposition (needs filled in before D/C Order can be placed): [facility] Living Facility (1) Closed right hip fracture Qualifiers: Encounter type: initial encounter Qualified Code(s): S72.001A - Fracture of unspecified part of neck of right femur, initial encounter for closed fracture (2) Fall Qualifiers: Encounter type: initial encounter Qualified Code(s): W19.XXXA - Unspecified fall, initial encounter
--- NOTE | 2025-04-29 09:36 | PCM.DC.SUM ---
Providers Date of Admission: 04/24/25 Date of Discharge: 04/29/25 Primary Care Physician: Dr. Kevin Mcadams MD Consultations 04/24/25 22:37 Consult: Orthopedics Routine Consulting Provider: Serge Lees Reason for Consult: Right Hip Fracture after Fall. EMERGENT Consult: No MD Notified: Yes Date Notified: 04/24/25 Time Notified: 22:37 Method of Notification: ED Physician Initiated Reason For Visit: RIGHT HIP FRACTURE AFTER FALL Diagnosis Discharge Diagnosis (1) Closed right hip fracture: Status: Acute Code(s): S72.001A - Fracture of unspecified part of neck of right femur, initial encounter for closed fracture Qualifiers: Encounter type: initial encounter Qualified Code(s): S72.001A - Fracture of unspecified part of neck of right femur, initial encounter for closed fracture (2) Fall: Status: Acute Code(s): W19.XXXA - Unspecified fall, initial encounter Qualifiers: Encounter type: initial encounter Qualified Code(s): W19.XXXA - Unspecified fall, initial encounter Plan Patient is an 84-year-old gentleman who slipped and fell was working on his car. He subsequently developed right hip pain presented to the ED imaging studies obtained did show A mildly impacted intratrochanteric fracture of the proximal right femur is noted. No dislocation. 1. Fall with right hip fracture ? Imaging studies did show A mildly impacted intratrochanteric fracture of the proximal right femur is noted. No dislocation.. Patient admitted to a monitored bed management initiated with immobilization pain meds with consultation placed orthopedic surgery. Patient initial diagnostic evaluation including EKG and CBC and BMP reviewed. Case was also discussed with Dr. Lees with orthopedic surgery. Plan is for patient to proceed with surgery. Risks for perioperative morbidity/mortality remains moderate given patient history of coronary artery disease with previous CABG, history of ascending aortic aneurysm repair and pacemaker. Patient however denies any chest pain or shortness of breath with activity ? 04/26/2025;Patient surgery was postponed to 04/26/2025 after his procedure the day prior was canceled due to issues with the sterilization equipment. ? 04/27/2025;Patient underwent open reduction internal fixation, cephalomedullary nailing with gamma nail, right intertrochanteric femur fracture on 04/26/[address] Serge Lees.. Subsequently requested for PT OT eval and social service liaison to assist with discharge 04/29: Patient is ready for discharge. Discharge med list reviewed. Patient on oxycodone, prescription was given by previous hospitalist. On Eliquis 2.5 mg twice daily. Yesterday he said he was not ready for discharge and he was reluctant. Complain of pain on putting the weight. Follow-up with Dr. Lees within 2 weeks of surgery 2. Coronary artery disease ? Status post CABG 3. Valvular heart disease ? Status post bioprosthetic AVR with bovine material 4. History of thoracic aortic aneurysmal repair ? Performed at [facility] in 2023 remains stable 5. Status post left atrial appendage clipping 6. Diabetes mellitus type 2 ? Patient was on metformin held on admission placed on Accu-Cheks AC and at bedtime with sliding scale coverage 7. Sick sinus syndrome Status post pacemaker placement telemetry monitoring demonstrated paced rhythm 8. BPH with lower urinary obstructive symptoms - Patient treated with tamsulosin 9. Generalized osteoarthritis ? 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 11. DVT prophylaxis ? Bilateral SCDs for now with plans to initiate chemoprophylaxis following surgery Discharge medication reconciliation done. Discharge follow-up instructions completed. Discharge process discussed with the patient and all questions were answered to patient's satisfaction. Follow with PCP in 1 to 2 weeks Total time spent, exact 35 minutes on discharge meds reconciliation, examination, coordination of care with nurses and ancillary staff, review of imaging and blood test and discussion with the patient on follow-up instructions. Medications at Discharge Home Medications multivitamin 1 ea PO DAILY supplement 04/29/17 cholecalciferol (vitamin D3) 125 mcg (5,000 unit) capsule 5,000 unit PO DAILY supplement 05/03/19 coenzyme Q10 300 mg capsule 300 mg PO DAILY supplement 05/03/19 zinc 1 tab PO DAILY supplement 05/08/22 aspirin 81 mg tablet 81 mg PO DAILY blood thinner 04/24/25 magnesium 250 mg tablet 250 mg PO DAILY supplement 04/24/25 metformin 500 mg tablet 500 mg PO DAILY dm 04/24/25 tamsulosin 0.4 mg capsule 0.4 mg PO DAILY bph 04/24/25 aluminum-mag hydroxide-simethicone 400 mg-400 mg-40 mg/5 mL oral susp (Mag-Al Plus Extra Strength) 30 ml PO Q6H PRN PRN Gastric Burning #0 mL 04/28/25 apixaban 5 mg tablet (Eliquis) 2.5 mg (1/2 x 5 mg) PO BID 30 days #0 tabs 04/28/25 calcium carbonate 500 mg (2.5 x 200 mg calcium (500 mg)) PO TIDCM #0 tabs 04/28/25 magnesium hydroxide 400 mg/5 mL oral suspension 30 ml PO DAILY PRN PRN Constipation #0 mL 04/28/25 melatonin 3 mg tablet 3 mg PO QHS PRN PRN Insomnia #0 tabs 04/28/25 oxycodone 5 mg tablet 5 mg PO Q4H PRN PRN Pain Score 4-10 2 days #6 tabs 04/28/25 Physical Exam Narrative Seen and examined. No acute issues. Patient ready to be discharged. Physical exam General: Alert, Oriented x3, Cooperative HEENT: Atraumatic, PERRLA, EOMI, Normocephalic. Oral: No Gingival or Mucosal Lesions/ Ulcerations Neck: Supple, No JVD, Negative Carotid Bruits Chest wall/Lungs: Air entry diminished in bilateral lung bases. No crepitation/rhonchi Cardiovascular: Regular rate and rhythm, open heart surgery, bioprosthetic artificial heart valve/click sound Abdomen: Bowel Sounds Present, Soft, Non Tender, Non-Distended : No dysuria. No renal angle tenderness. No suprapubic tenderness. Extremities: No edema, Capillary Refill Less than 3 Seconds Skin: Surgical dressing intact on right hip. Mild staining. No active bleeding or hematoma Musculoskeletal: No acute tenderness to Palpation of Joints or Extremities. Mild postop swelling around the incision and right hip region Neurological: Cranial nerves II-XII grossly intact, DTR 2+/4. No acute focal neurological deficit. Psych/Mental Status: Normal Affect, Appropriate. Weight / BMI Weight Weight: 132 lb 11.492 oz Body Mass Index (BMI) 20.8 ABG / Lab / Microbiology Data 04/28/25 06:41 04/28/25 06:41 Laboratory: Laboratory Results - last 24 hr 04/28/25 10:48: POC Glucose 226 H 04/28/25 16:29: POC Glucose 187 H 04/28/25 21:53: POC Glucose 199 H 04/29/25 07:01: POC Glucose 176 H D/C Instructions DC O2, CPAP, BIPAP Needs Home O2 Discharge instructions: No Meaningful Use Info Meaningful Use Meaningful Use Diagnoses (Choose all that apply): None applicable Discharge Plan Admission Admit Date/Time: 04/24/25 22:34 Attending Provider: Johnathon Horn Primary Care Provider: Kevin Mcadams Consulting Providers: Serge Lees; Jose A Roque; Jose A Pinedo Discharge Orders/Prescriptions Prescriptions: New melatonin 3 mg Tablet 3 mg PO QHS PRN PRN (Reason: Insomnia) Qty: 0 0RF magnesium hydroxide 400 mg/5 mL Suspension 30 ml PO DAILY PRN PRN (Reason: Constipation) Qty: 0 0RF alum-mag hydroxide-simeth [Mag-Al Plus Extra Strength] 400-400-40 mg/5 mL Suspension 30 ml PO Q6H PRN PRN (Reason: Gastric Burning) Qty: 0 0RF oxycodone 5 mg Tablet 5 mg PO Q4H PRN PRN (Reason: Pain Score 4-10) 2 Days Qty: 6 0RF Eliquis 5 mg Tablet 2.5 mg PO BID 30 Days Qty: 0 0RF calcium carbonate 200 mg calcium (500 mg) Tablet,Chewable 500 mg PO TIDCM Qty: 0 0RF Continued cholecalciferol (vitamin D3) 5,000 unit capsule 5,000 unit PO DAILY coenzyme Q10 300 mg capsule 300 mg PO DAILY multivitamin 1 EACH tablet 1 ea PO DAILY zinc Tablet,Chewable 1 tab PO DAILY metformin 500 mg tablet 500 mg PO DAILY tamsulosin 0.4 mg capsule 0.4 mg PO DAILY Patient Comments: HAS NOT TAKEN FOR A COUPLE OF DAYS OF 04/24/25 aspirin 81 mg tablet 81 mg PO DAILY magnesium 250 mg tablet 250 mg PO DAILY Referrals / Follow Up: Serge Lees MD [Med Staff - Active Staff, Orthopedics] - Within 2 Weeks Kevin Mcadams MD [Primary Care Provider, Family Practice] - Within 2 Weeks Disposition Disposition (needs filled in before D/C Order can be placed): Nursing Home Facility Charges/Coding Visit Charges Inpatient E&M: 90514 Disch Hosp >30min
--- NOTE | 2025-04-29 10:38 | CASEMGMT ---
Discharge Planning Updated discharge orders, med list, and discharge time sent via [facility] to [facility]. Pt friend will provide transport, arriving at 11a. All parties aware. Faiza Elizondo DC Planning Asst.
== END 2025-04-29 11:05 | disposition skilled nursing facility (03) | DRG 481 ==
LOC: ED 21:44 → MS3 22:41
PROVIDERS: Internal Medicine; Orthopaedic Surgery Orthopaedic Surgery of the Spine; Admitting Provider Internal Medicine; Emergency Provider Student in an Organized Health Care Education/Training Program; PCP Family Medicine; Visit Provider Internal Medicine
PROC: 0QS606Z Reposition Right Upper Femur with Intramedullary Internal Fixation Device, Open Approach (ICD-10-PCS; CPT 27245; principal; 2025-04-26 12:00)
DX: S72.141A Displaced intertrochanteric fracture of right femur, initial encounter for closed fracture (principal); N13.8 Other obstructive and reflux uropathy; I49.5 Sick sinus syndrome; E11.9 Type 2 diabetes mellitus without complications; I71.21 Aneurysm of the ascending aorta, without rupture; Z95.2 Presence of prosthetic heart valve; W01.0XXA Fall on same level from slipping, tripping and stumbling without subsequent striking against object, initial encounter; M15.9 Polyosteoarthritis, unspecified; I25.10 Atherosclerotic heart disease of native coronary artery without angina pectoris; Z95.1 Presence of aortocoronary bypass graft; N40.1 Benign prostatic hyperplasia with lower urinary tract symptoms; Z95.0 Presence of cardiac pacemaker; Z79.84 Long term (current) use of oral hypoglycemic drugs; Z79.82 Long term (current) use of aspirin; Z79.899 Other long term (current) drug therapy; Z85.828 Personal history of other malignant neoplasm of skin; Z98.890 Other specified postprocedural states; Z87.891 Personal history of nicotine dependence
CPT/HCPCS: 36415; 70450; 71260; 72125; 73502; 76000; 80048; 80053; 81001; 82962; 83036; 83735; 84100; 84443; 85025; 86850; 86900; 86901; 93005; 94668; 97162; 97166; 97530; 97535; 99285; C1776; Q9967; A4216; J2405